=== PATIENT | male | born 1935 | race Caucasian/White ===

== ENCOUNTER 2020-10-28 18:44 | Inpatient (IN) | payer OTHER, MEDICARE ==
--- NOTE | 2020-10-28 19:02 | EDM.PDOC ---
ED HPI GENERAL MEDICAL PROBLEM - General Chief Complaint: Respiratory Problem Stated Complaint: TROUBLE BREATHING Time Seen by Provider: 10/28/20 18:50 - History of Present Illness INITIAL COMMENTS - FREE TEXT/NARRATIVE: Cedrick is an 85-year-old male presenting to the ED for evaluation of dyspnea at rest. Patient reports that he has had a cough over the last several days that is been nonproductive. He has become progressively short of breath over that same period of time. He denies any fever or chills. He states he has been working outside in the cold. He does smoke but denies any history of COPD. Very limited is known about his past medical history but he is presenting with a rapid irregularly irregular heartbeat, respiratory distress with hypoxia with an SPO2 of 80% on room air and respiratory rate of 42. He states that he has been extra careful about avoiding people with COVID-19. He denies any loss of taste or smell. Patient is extremely hard of hearing. He normally receives care from [facility] in [facility]. He does express that he would like to be full code but does not want his life extended on machines. The patient has a past medical history for tobacco abuse smoking 1 to 2 packs a day for 50 years, hypertension, hyperlipidemia, coronary disease status post CT with a history of congestive heart failure, and hypothyroidism. He is currently on furosemide, metoprolol, levothyroxine, lisinopril, hydroxyzine, simvastatin, full-strength aspirin and amlodipine. He reports having an allergy to something he does not remember, however, his dhmtrure-to-lkv says he has no allergies. We reviewed the records from both [facility] and [facility] and do not see any documentation of allergies. - Related Data Allergies Allergy/AdvReac Type Severity Reaction Status Date / Time No Known Allergies Allergy Verified 10/28/20 19:24 Home Meds: Home Meds Aspirin 325 mg PO DAILY 10/28/20 [History] Furosemide 40 mg PO DAILY 10/28/20 [History] Levothyroxine 25 mcg PO ACBREAKFAST 10/28/20 [History] Metoprolol Tartrate 25 mg PO BID 10/28/20 [History] Simvastatin 80 mg PO DAILY 10/28/20 [History] amLODIPine Besylate [Norvasc] 5 mg PO DAILY 10/28/20 [History] hydrOXYzine HCL [Atarax] 25 mg PO QID 10/28/20 [History] lisinopriL [Lisinopril] 40 mg PO DAILY 10/28/20 [History] ED ROS GENERAL - Review of Systems Review Of Systems: See Below Constitutional: Reports: Malaise HEENT: Reports: No Symptoms Respiratory: Reports: Shortness of Breath, Cough. Denies: Sputum Cardiovascular: Reports: Palpitations. Denies: Chest Pain, Blood Pressure Problem Endocrine: Reports: No Symptoms GI/Abdominal: Reports: No Symptoms : Reports: No Symptoms Musculoskeletal: Reports: No Symptoms Skin: Reports: No Symptoms Neurological: Reports: No Symptoms Psychiatric: Reports: No Symptoms Hematologic/Lymphatic: Reports: No Symptoms Immunologic: Reports: No Symptoms ED EXAM, GENERAL - Physical Exam Exam: See Below Exam Limited By: No Limitations General Appearance: Alert, Anxious, Mild Distress Eye Exam: Bilateral Eye: EOMI, PERRL Nose: Normal Inspection, Normal Mucosa Head: Atraumatic, Normocephalic Neck: Normal Inspection, Supple, Non-Tender. No: Carotid Bruit Respiratory/Chest: Respiratory Distress, Decreased Breath Sounds, Wheezing (Inspiratory and expiratory wheezes.), Accessory Muscle Use, Retractions, Prolonged Expiration, Other (Tachypnea) Cardiovascular: No Edema, No Murmur, No Rub, JVD (6 cm at 60 degrees in the bed.), Tachycardia, Irregularly Irregular Peripheral Pulses: 2+: Radial (L), Radial (R), Posterior Tibial (L), Posterior Tibial (R) GI/Abdominal: Normal Bowel Sounds, Soft, Non-Tender, Distended Back Exam: Normal Inspection, Full Range of Motion Extremities: Normal Inspection, Normal Range of Motion, No Pedal Edema Neurological: Alert, Oriented, Normal Cognition, Normal Gait, No Motor/Sensory Deficits Psychiatric: Normal Affect, Normal Mood Skin Exam: Warm, Dry Lymphatic: No Adenopathy #1 Interpretation EKG Date: 10/28/20 Time: 19:10 Rhythm: A-Fib Rate (Beats/Min): 120 (68 - 140 bpm) P-Wave: Absent QRS: LBBB ST-T: Other (Repolarization abnormality due to left bundle branch block.) QT: Prolonged Comparison: NA - No Prior EKG Course - Vital Signs Last Recorded V/S: Last Vital Signs Temp 35.5 C L 10/28/20 18:45 Pulse 108 H 10/28/20 22:22 Resp 34 H 10/28/20 22:22 BP 108/59 L 10/28/20 22:22 Pulse Ox 92 L 10/28/20 22:22 - Orders/Labs/Meds Orders: Active Orders 24 hr Category Date Time Status Blood Pressure Mgt: Sepsis [RC] Q15MX2 Care 10/28/20 20:00 Active EKG Documentation Completion [RC] ASDIRECTED Care 10/28/20 18:52 Active RT Aerosol Therapy [RC] ASDIRECTED Care 10/28/20 19:08 Active RT Aerosol Therapy [RC] ASDIRECTED Care 10/28/20 22:29 Active CULTURE BLOOD [BC] Urgent Lab 10/28/20 19:00 Received CULTURE BLOOD [BC] Urgent Lab 10/28/20 19:10 Received Sodium Chloride 0.9% [Saline Flush] Med 10/28/20 18:51 Active 10 ml FLUSH ASDIRECTED PRN Blood Culture x2 Reflex Set [OM.PC] Urgent Oth 10/28/20 18:55 Ordered Saline Lock Insert [OM.PC] Routine Oth 10/28/20 18:51 Ordered Severe Sepsis Onset Time [OM.PC] Stat Oth 10/28/20 19:59 Ordered EKG 12 Lead [EK] Routine Ther 10/28/20 18:51 Ordered Medication Orders Sodium Chloride (Saline Flush) 10 ml FLUSH ASDIRECTED PRN PRN Reason: Keep Vein Open Last Admin: 10/28/20 23:06 Dose: 10 ml Documented by: Admin: 10/28/20 19:05 Dose: 10 ml Documented by: MISAEL Labs: Laboratory Tests 10/28/20 10/28/20 10/28/20 Range/Units 18:51 18:59 18:59 WBC 11.7 H (4.5-11.0) K/uL RBC 4.68 (4.30-5.90) M/uL Hgb 14.3 (12.0-15.0) g/dL Hct 45.2 (40.0-54.0) % MCV 97 (80-98) fL MCH 31 (27-31) pg MCHC 32 (32-36) % Plt Count 230 (150-400) K/uL Neut % (Auto) 53 (36-66) % Lymph % (Auto) 34 (24-44) % Ellsworth % (Auto) 10 H (2-6) % Eos % (Auto) 3 (2-4) % Baso % (Auto) 0 (0-1) % PT 11.6 (9.5-12.0) sec INR 1.07 (0.80-1.20) Sodium 137 L (140-148) mmol/L Potassium 3.0 L (3.6-5.2) mmol/L Chloride 98 L (100-108) mmol/L Carbon Dioxide 25 (21-32) mmol/L Anion Gap 17.0 H (5.0-14.0) mmol/L BUN 17 (7-18) mg/dL Creatinine 1.1 (0.8-1.3) mg/dL Est Cr Clr Drug Dosing 45.67 mL/min Estimated GFR (MDRD) > 60 (>60) Glucose 201 H (74-106) mg/dL Lactic Acid (0.4-2.0) mmol/L Calcium 9.0 (8.5-10.1) mg/dL Total Bilirubin 0.9 (0.2-1.0) mg/dL AST 16 (15-37) U/L ALT 20 (12-78) U/L Alkaline Phosphatase 107 (46-116) U/L Troponin I < 0.017 (0.000-0.056) ng/mL C-Reactive Protein 2.08 H (0.0-0.3) mg/dL NT-Pro-B Natriuret Pep 63578 H (5-450) pg/mL Total Protein 7.9 (6.4-8.2) g/dL Albumin 3.4 (3.4-5.0) g/dL Globulin 4.5 H (2.3-3.5) g/dL Albumin/Globulin Ratio 0.8 L (1.2-2.2) Urine Color (YELLOW) Urine Appearance (CLEAR) Urine pH (5.0-8.0) Ur Specific Cook Sta (1.008-1.030) Urine Protein (NEGATIVE) mg/dL Urine Glucose (UA) (NEGATIVE) mg/dL Urine Ketones (NEGATIVE) mg/dL Urine Occult Blood (NEGATIVE) Urine Nitrite (NEGATIVE) Urine Bilirubin (NEGATIVE) Urine Urobilinogen (0.2-1.0) EU/dL Ur Leukocyte Esterase (NEGATIVE) Urine RBC (0-5) Urine WBC (0-5) Ur Epithelial Cells Amorphous Sediment Urine Bacteria Urine Mucus Influenza Type A RNA (NEGATIVE) Influenza Type B RNA (NEGATIVE) RSV Rapid (NEGATIVE) SARS-CoV-2 RNA (EDISON) (NEGATIVE) 10/28/20 10/28/20 10/28/20 Range/Units 18:59 19:41 20:12 WBC (4.5-11.0) K/uL RBC (4.30-5.90) M/uL Hgb (12.0-15.0) g/dL Hct (40.0-54.0) % MCV (80-98) fL MCH (27-31) pg MCHC (32-36) % Plt Count (150-400) K/uL Neut % (Auto) (36-66) % Lymph % (Auto) (24-44) % Ellsworth % (Auto) (2-6) % Eos % (Auto) (2-4) % Baso % (Auto) (0-1) % PT (9.5-12.0) sec INR (0.80-1.20) Sodium (140-148) mmol/L Potassium (3.6-5.2) mmol/L Chloride (100-108) mmol/L Carbon Dioxide (21-32) mmol/L Anion Gap (5.0-14.0) mmol/L BUN (7-18) mg/dL Creatinine (0.8-1.3) mg/dL Est Cr Clr Drug Dosing mL/min Estimated GFR (MDRD) (>60) Glucose (74-106) mg/dL Lactic Acid 4.4 H (0.4-2.0) mmol/L Calcium (8.5-10.1) mg/dL Total Bilirubin (0.2-1.0) mg/dL AST (15-37) U/L ALT (12-78) U/L Alkaline Phosphatase (46-116) U/L Troponin I (0.000-0.056) ng/mL C-Reactive Protein (0.0-0.3) mg/dL NT-Pro-B Natriuret Pep (5-450) pg/mL Total Protein (6.4-8.2) g/dL Albumin (3.4-5.0) g/dL Globulin (2.3-3.5) g/dL Albumin/Globulin Ratio (1.2-2.2) Urine Color Yellow (YELLOW) Urine Appearance Clear (CLEAR) Urine pH 6.0 (5.0-8.0) Ur Specific Cook Sta 1.025 (1.008-1.030) Urine Protein >=300 H (NEGATIVE) mg/dL Urine Glucose (UA) Negative (NEGATIVE) mg/dL Urine Ketones Negative (NEGATIVE) mg/dL Urine Occult Blood Small H (NEGATIVE) Urine Nitrite Negative (NEGATIVE) Urine Bilirubin Negative (NEGATIVE) Urine Urobilinogen 2.0 H (0.2-1.0) EU/dL Ur Leukocyte Esterase Negative (NEGATIVE) Urine RBC 5-10 H (0-5) Urine WBC 0-5 (0-5) Ur Epithelial Cells Not seen Amorphous Sediment Not seen Urine Bacteria Not seen Urine Mucus Few Influenza Type A RNA Negative (NEGATIVE) Influenza Type B RNA Negative (NEGATIVE) RSV Rapid Negative (NEGATIVE) SARS-CoV-2 RNA (EDISON) Negative (NEGATIVE) 10/28/20 10/28/20 Range/Units 21:51 21:51 WBC (4.5-11.0) K/uL RBC (4.30-5.90) M/uL Hgb (12.0-15.0) g/dL Hct (40.0-54.0) % MCV (80-98) fL MCH (27-31) pg MCHC (32-36) % Plt Count (150-400) K/uL Neut % (Auto) (36-66) % Lymph % (Auto) (24-44) % Ellsworth % (Auto) (2-6) % Eos % (Auto) (2-4) % Baso % (Auto) (0-1) % PT (9.5-12.0) sec INR (0.80-1.20) Sodium (140-148) mmol/L Potassium (3.6-5.2) mmol/L Chloride (100-108) mmol/L Carbon Dioxide (21-32) mmol/L Anion Gap (5.0-14.0) mmol/L BUN (7-18) mg/dL Creatinine (0.8-1.3) mg/dL Est Cr Clr Drug Dosing mL/min Estimated GFR (MDRD) (>60) Glucose (74-106) mg/dL Lactic Acid 1.4 (0.4-2.0) mmol/L Calcium (8.5-10.1) mg/dL Total Bilirubin (0.2-1.0) mg/dL AST (15-37) U/L ALT (12-78) U/L Alkaline Phosphatase (46-116) U/L Troponin I 0.024 (0.000-0.056) ng/mL C-Reactive Protein (0.0-0.3) mg/dL NT-Pro-B Natriuret Pep (5-450) pg/mL Total Protein (6.4-8.2) g/dL Albumin (3.4-5.0) g/dL Globulin (2.3-3.5) g/dL Albumin/Globulin Ratio (1.2-2.2) Urine Color (YELLOW) Urine Appearance (CLEAR) Urine pH (5.0-8.0) Ur Specific Cook Sta (1.008-1.030) Urine Protein (NEGATIVE) mg/dL Urine Glucose (UA) (NEGATIVE) mg/dL Urine Ketones (NEGATIVE) mg/dL Urine Occult Blood (NEGATIVE) Urine Nitrite (NEGATIVE) Urine Bilirubin (NEGATIVE) Urine Urobilinogen (0.2-1.0) EU/dL Ur Leukocyte Esterase (NEGATIVE) Urine RBC (0-5) Urine WBC (0-5) Ur Epithelial Cells Amorphous Sediment Urine Bacteria Urine Mucus Influenza Type A RNA (NEGATIVE) Influenza Type B RNA (NEGATIVE) RSV Rapid (NEGATIVE) SARS-CoV-2 RNA (EDISON) (NEGATIVE) Meds: Medications Generic Name Dose Route Start Last Admin Trade Name Freq PRN Reason Stop Dose Admin Sodium Chloride 10 ml 10/28/20 18:51 10/28/20 23:06 Saline Flush FLUSH 10 ml ASDIRECTED PRN Administration Keep Vein Open Discontinued Medications Generic Name Dose Route Start Last Admin Trade Name Freq PRN Reason Stop Dose Admin Albuterol/Ipratropium 3 ml 10/28/20 19:08 10/28/20 19:25 Duoneb 3.0-0.5 Mg/3 Ml NEB 10/28/20 19:09 3 ml ONETIME ONE Administration Albuterol/Ipratropium 3 ml 10/28/20 22:29 10/28/20 22:32 Duoneb 3.0-0.5 Mg/3 Ml NEB 10/28/20 22:30 3 ml ONETIME ONE Administration Ceftriaxone Sodium 1 gm/ 50 mls @ 100 mls/hr 10/28/20 19:29 10/28/20 20:24 Sodium Chloride IV 10/28/20 19:58 100 mls/hr ONETIME ONE Administration Sodium Chloride 1,000 mls @ 1,000 mls/hr 10/28/20 19:59 10/28/20 20:18 Normal Saline IV 10/28/20 20:58 1,000 mls/hr BOLUS ONE Administration Protocol Vancomycin HCl 1 gm/ Sodium 250 mls @ 167 mls/hr 10/28/20 19:59 10/28/20 20:52 Chloride IV 10/28/20 21:28 167 mls/hr STAT ONE Administration Methylprednisolone Sodium Succinate 125 mg 10/28/20 22:55 10/28/20 23:06 Solu-Medrol IVPUSH 10/28/20 22:56 125 mg ONETIME ONE Administration Potassium Chloride 40 meq 10/28/20 19:55 10/28/20 20:17 Klor-Con M20 PO 10/28/20 19:56 40 meq ONETIME ONE Administration - Radiology Interpretation Free Text/Narrative:: Portable 1 view chest x-ray was performed showing hyperinflation of the lungs with some pulmonary fibrosis throughout and flattening of the diaphragms. There is a large increased density in the right base worrisome for a pleural effusion versus infiltrate. We will get a right lateral decubitus view to try to determine if this is fluid versus intrapulmonary. Portable 1 view chest x-ray right lateral decubitus view shows minimal layering of fluid favoring more likely this being an infiltrate in the right base versus a pleural effusion. - Re-Assessments/Exams Free Text/Narrative Re-Assessment/Exam: 10/28/20 21:10 I discussed the case with Dr. Velasquez from the [facility] in [place] who is the medical logistics specialist of the day. We reviewed the patient's presenting complaint, exam, history, and labs. Dr. Velasquez was concerned that this may be an unstable coronary issue and wanted a repeat troponin III hours after the patient had presented which would be at 2200 hrs. If the patient remained stable during this time and has improvement in both his lactate and remained stable with his troponin, Dr. Velasquez believes that he could be transferred to the [facility] for further care. If the troponin remains elevated, he recommended transferring the patient to a facility where they have cardiology available if an intervention needs to be performed since the patient has a significant history for coronary artery disease. We will repeat the troponin and update Dr. Velasquez at that time. 10/28/20 22:31 the repeat lactate has dropped down to 1.4 and the repeat troponin is still negative at 0.024. I did discuss the case with Dr. Velasquez at the [facility] in his lungs the patient remained stable he believes that they can transfer the patient there, however, after getting off the phone with Dr. Velasquez the patient became more tachypneic, had some hypoxia and tachycardia and was experiencing more difficulty breathing. We did repeat the DuoNeb. 10/28/20 22:456 I did discuss the case again with Dr. Velasquez at the [facility] who agrees that the patient should probably stay here should he require ICU management. The patient would like to stay here as well. We will admit him to the ICU on medical status. At this time he does not require any assisted ventilation BiPAP or other means to maintain oxygenation other than repeated DuoNebs and close monitoring. He will likely need diuresis in the morning. I discussed the case with Dr. Hinton who will come in to admit the patient. The patient will be admitted to the ICU as an overflow. Departure - Departure Time of Disposition: 23:17 Disposition: Admitted As Inpatient 66 Condition: Fair Clinical Impression: Atrial fibrillation with rapid ventricular response, Hypoxia, Tobacco use disorder, continuous, Hypokalemia Community acquired pneumonia Qualifiers: Laterality: right Lung location: lower lobe of lung Qualified Code(s): J18.9 - Pneumonia, unspecified organism Congestive heart failure (CHF) Qualifiers: Heart failure type: unspecified Heart failure chronicity: acute on chronic Qualified Code(s): I50.9 - Heart failure, unspecified Sepsis Qualifiers: Sepsis type: sepsis due to unspecified organism Sepsis acute organ dysfunction status: unspecified Qualified Code(s): A41.9 - Sepsis, unspecified organism COPD (chronic obstructive pulmonary disease) Qualifiers: COPD type: COPD with acute exacerbation Qualified Code(s): J44.1 - Chronic obstructive pulmonary disease with (acute) exacerbation - Discharge Information Referrals: PCP,None [Primary Care Provider] - Forms: ED Department Discharge Sepsis Event Note (ED) - Evaluation Sepsis Screening Result: Possible Sepsis Risk Current Stage of Sepsis: Sepsis Possible Source of Sepsis: Pulmonary - Focused Exam Sepsis Event Note Statement: Focused Sepsis Exam Completed Vital Signs: Vital Signs Temp Pulse Resp BP Pulse Ox 10/28/20 22:22 108 H 34 H 108/59 L 92 L 10/28/20 21:20 84 29 H 129/77 94 L 10/28/20 20:50 72 21 H 116/63 92 L 10/28/20 20:20 74 24 H 133/67 91 L 10/28/20 19:50 80 23 H 105/66 10/28/20 19:28 69 16 128/73 97 10/28/20 18:45 35.5 C L 135 H 35 H 151/100 H 81 L Respiratory Effort Without Exertion: Abdominal Breathing, Labored, Retracting, Use Of Accessory Muscles Heart Sounds: Irregular Capillary Refill, Detail: Less than/Equal to (</=) 2 Seconds Pulse Description: 2+ Normal Peripheral Pulse Location: Posterior Tibial Skin Exam (Focused Sepsis): Normal Turgor Date Exam was Performed: 10/28/20 Time Exam was Performed: 19:35 - Bedside Monitoring Bedside Ultrasound Performed: No Fluid Bolus Goal: 15 mL/kg due to congestive heart failure [place] [address]. Antibiotics were initiated with ceftriaxone 1 g and vancomycin 1 g IV. Blood cultures have been obtained. Date Bedside Monitoring was Performed: 10/28/20 Time Bedside Monitoring was Performed: 23:16 - Problem List & Annotations (1) Community acquired pneumonia SNOMED Code(s): 358242990 Code(s): J18.9 - PNEUMONIA, UNSPECIFIED ORGANISM Status: Acute Priority: High Current Visit: Yes Qualifiers: Laterality: right Lung location: lower lobe of lung Qualified Code(s): J18.9 - Pneumonia, unspecified organism (2) Atrial fibrillation with rapid ventricular response SNOMED Code(s): 005481258731849 Code(s): I48.91 - UNSPECIFIED ATRIAL FIBRILLATION Status: Acute Priority: High Current Visit: Yes (3) Hypoxia SNOMED Code(s): 025901479 Code(s): R09.02 - HYPOXEMIA Status: Acute Priority: High Current Visit: Yes (4) Tobacco use disorder, continuous SNOMED Code(s): 717969454 Code(s): F17.209 - NICOTINE DEPENDENCE, UNSP, W UNSP NICOTINE-INDUCED DI SORDERS Status: Chronic Priority: Medium Current Visit: Yes (5) Hypokalemia SNOMED Code(s): 59636777 Code(s): E87.6 - HYPOKALEMIA Status: Acute Priority: High Current Visit: Yes (6) Congestive heart failure (CHF) SNOMED Code(s): 90976876 Code(s): I50.9 - HEART FAILURE, UNSPECIFIED Status: Acute Priority: High Current Visit: Yes Qualifiers: Heart failure type: unspecified Heart failure chronicity: acute on chronic Qualified Code(s): I50.9 - Heart failure, unspecified (7) Sepsis SNOMED Code(s): 62773924 Code(s): A41.9 - SEPSIS, UNSPECIFIED ORGANISM Status: Acute Priority: High Current Visit: Yes Qualifiers: Sepsis type: sepsis due to unspecified organism Sepsis acute organ dysfunction status: unspecified Qualified Code(s): A41.9 - Sepsis, unspecified organism (8) COPD (chronic obstructive pulmonary disease) SNOMED Code(s): 92347995 Code(s): J44.9 - CHRONIC OBSTRUCTIVE PULMONARY DISEASE, UNSPECIFIED Status: Acute Priority: High Current Visit: Yes Qualifiers: COPD type: COPD with acute exacerbation Qualified Code(s): J44.1 - Chronic obstructive pulmonary disease with (acute) exacerbation - Problem List Review Problem List Initiated/Reviewed/Updated: Yes - My Orders Last 24 Hours: My Active Orders 10/28/20 18:51 Sodium Chloride 0.9% [Saline Flush] 10 ml FLUSH ASDIRECTED PRN Saline Lock Insert [OM.PC] Routine EKG 12 Lead [EK] Routine 10/28/20 18:52 EKG Documentation Completion [RC] ASDIRECTED 10/28/20 18:55 Blood Culture x2 Reflex Set [OM.PC] Urgent 10/28/20 19:00 CULTURE BLOOD [BC] Urgent 10/28/20 19:08 RT Aerosol Therapy [RC] ASDIRECTED 10/28/20 19:10 CULTURE BLOOD [BC] Urgent 10/28/20 19:59 Severe Sepsis Onset Time [OM.PC] Stat 10/28/20 20:00 Blood Pressure Mgt: Sepsis [RC] Q15MX2 10/28/20 22:29 RT Aerosol Therapy [RC] ASDIRECTED - Assessment/Plan Last 24 Hours: My Active Orders 10/28/20 18:51 Sodium Chloride 0.9% [Saline Flush] 10 ml FLUSH ASDIRECTED PRN Saline Lock Insert [OM.PC] Routine EKG 12 Lead [EK] Routine 10/28/20 18:52 EKG Documentation Completion [RC] ASDIRECTED 10/28/20 18:55 Blood Culture x2 Reflex Set [OM.PC] Urgent 10/28/20 19:00 CULTURE BLOOD [BC] Urgent 10/28/20 19:08 RT Aerosol Therapy [RC] ASDIRECTED 10/28/20 19:10 CULTURE BLOOD [BC] Urgent 10/28/20 19:59 Severe Sepsis Onset Time [OM.PC] Stat 10/28/20 20:00 Blood Pressure Mgt: Sepsis [RC] Q15MX2 10/28/20 22:29 RT Aerosol Therapy [RC] ASDIRECTED
[2020-10-28] MEDS: Sodium Chloride 0.9% 10 ML Syringe FLUSH PRN ×2 (19:05→23:06)
[2020-10-28] MEDS ORDERED: Albuterol/Ipratropium 3.0-0.5 MG/3 ML Neb Soln NEB ONE ×2 (19:08→22:29)
[2020-10-28] MEDS ORDERED: cefTRIAXone 1 GM in Sodium Chloride 0.9% 50 ML IV ONE (19:29)
--- NOTE | 2020-10-28 19:47 | CRLCR ---
Indication: Right pleural effusion Technique: Examination consists an AP upright chest radiograph as well as a right lateral decubitus view of the chest Comparison: None Findings: Heart enlarged. Patchy multifocal airspace process bilaterally could represent edema or a diffuse inflammatory process amongst other possibilities. There is a very small left effusion. There is a small to moderate right effusion. On right lateral decubitus imaging, there is objective separation of the parietal from visceral pleura suggesting that the right effusion is mobile. No acute osseous finding Impression: 1. Enlarged heart. 2. Patchy multifocal airspace process bilaterally. This is overall moderate. 3. Very small left effusion. 4. Small to moderate right effusion that is shown to be mobile on decubitus positioning Dictated by Thierry Arellano MD @ Oct 28 2020 7:42PM Signed by Dr. Thierry Arellano @ Oct 28 2020 7:45PM
[2020-10-28] MEDS ORDERED: Potassium Chloride 20 MEQ Tab.ER PO ONE (19:55)
[2020-10-28] MEDS ORDERED: Sodium Chloride 0.9% 1,000 ML IV ONE (19:59)
[2020-10-28 20:27] LABS: CORONAVIRUS COVID-19 NAA NEGATIVE (NEGATIVE)
[2020-10-28] MEDS ORDERED: methylPREDNISolone Sodium Succinate 125 MG/2 ML SDV IVPUSH ONE (22:55)
[2020-10-28] MEDS ORDERED: Ondansetron 4 MG Tab.DIS PO PRN (23:36)
--- NOTE | 2020-10-29 00:20 | PCM.HP.2 ---
H&P History of Present Illness - General Date of Service: 10/28/20 Admit Problem/Dx: Admission Diagnosis/Problem Admission Diagnosis/Problem Sepsis Source of Information: Patient History Limitations: Reports: No Limitations - History of Present Illness Initial Comments - Free Text/Narative: Patient is an 85yo male smoker with PMH of HTN, who is here for SOB, orthopnea, and leg swelling. Patient says for the last 2-3 days he has been having more difficulty sleeping and has been coughing at night. Sometimes he was able to lay down, but tonight when he tried to lay down to sleep he could not breathe. He says his legs have been more swollen than normal recently. He does have a distant history of NV, but denies any other known heart issues. He says he does take medication for blood pressure and a statin. He says he is trying to quit smoking but has had 4 cigarettes today and would like nicotine replacement while in the hospital. He says he is not on any COPD medications at this time, but has been having difficulty coughing up a lot of mucus over the last several days. He denies any CP, or palpitations Onset of Symptoms: Reports: Gradual Symptom Onset Date: 10/26/20 Location: Reports: Chest Improves with: Reports: Rest Worsens with: Reports: Other (lying down), Movement Associated Symptoms: Reports: No Other Symptoms - Related Data Allergies/Adverse Reactions: Allergies Allergy/AdvReac Type Severity Reaction Status Date / Time No Known Allergies Allergy Verified 10/28/20 19:24 Home Medications: Home Meds Aspirin 325 mg PO DAILY 10/28/20 [History] Furosemide 40 mg PO DAILY 10/28/20 [History] Levothyroxine 25 mcg PO ACBREAKFAST 10/28/20 [History] Metoprolol Tartrate 25 mg PO BID 10/28/20 [History] Simvastatin 80 mg PO DAILY 10/28/20 [History] amLODIPine Besylate [Norvasc] 5 mg PO DAILY 10/28/20 [History] hydrOXYzine HCL [Atarax] 25 mg PO QID 10/28/20 [History] lisinopriL [Lisinopril] 40 mg PO DAILY 10/28/20 [History] Past Medical History HEENT History: Reports: Hard of Hearing, Impaired Vision Cardiovascular History: Reports: Heart Failure, High Cholesterol, Hypertension, NV Musculoskeletal History: Reports: Fracture Other Musculoskeletal History: knee Endocrine/Metabolic History: Reports: Hypothyroidism Oncologic (Cancer) History: Reports: Other (See Below) Other Oncologic History: skin Dermatologic History: Reports: Other (See Below) 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 - Past Surgical History HEENT Surgical History: Reports: Cataract Surgery Oncologic Surgical History: Reports: None Social & Family History - Tobacco Use Tobacco Use Status *Q: Light Tobacco User Years of Tobacco use: 70 Packs/Tins Daily: 0.5 Tobacco Use Comment: reports "trying to quit" - Caffeine Use Caffeine Use: Reports: Coffee - Alcohol Use Days Per Week of Alcohol Use: 7 Number of Drinks Per Day: 1 Total Drinks Per Week: 7 - Recreational Drug Use Recreational Drug Use: No H&P Review of Systems - Review of Systems: Review Of Systems: See Below General: Denies: Fever, Chills, Malaise HEENT: Reports: No Symptoms Pulmonary: Reports: Shortness of Breath, Wheezing, Cough, Sputum Cardiovascular: Reports: Edema. Denies: Chest Pain, Palpitations Gastrointestinal: Reports: No Symptoms Genitourinary: Reports: No Symptoms Musculoskeletal: Reports: No Symptoms Skin: Reports: No Symptoms Psychiatric: Reports: No Symptoms Neurological: Reports: No Symptoms Hematologic/Lymphatic: Reports: No Symptoms Immunologic: Reports: No Symptoms Exam - Exam Exam: See Below - Vital Signs Vital Signs: Last Vital Signs Temp 35.5 C L 10/28/20 18:45 Pulse 108 H 10/28/20 22:22 Resp 34 H 10/28/20 22:22 BP 108/59 L 10/28/20 22:22 Pulse Ox 92 L 10/28/20 22:22 Weight: 65.771 kg - Exam Quality Assessment: Supplemental Oxygen General: Alert, Oriented, 4 HEENT: PERRLA, Hearing Intact, Mucosa Moist & [place], Nares Patent, Normal Nasal Septum, Posterior Pharynx Clear, Conjunctiva Clear, EOMI, EACs Clear, TMs Clear Neck: Supple, Trachea Midline, 2 Lungs: Decreased Breath Sounds, Crackles, Wheezing Cardiovascular: Normal S1, Normal S2, Irregular Rhythm GI/Abdominal Exam: Normal Bowel Sounds, Soft, Non-Tender, No Organomegaly, No Distention, No Abnormal Bruit, No Mass, Pelvis Stable (Male) Exam: Deferred Rectal (Males) Exam: Deferred Back Exam: Normal Inspection, Full Range of Motion, NT Extremities: Pedal Edema Skin: Warm, Dry, Intact Neurological: Cranial Nerves Intact, Reflexes Equal Bilateral Neuro Extensive - Mental Status: Alert, Oriented x3, Normal Mood/Affect, Normal Cognition Neuro Extensive - Motor, Sensory, Reflexes: CN II-XII Intact Psychiatric: Alert, Normal Affect, Normal Mood - Patient Data Lab Results Last 24 hrs: Laboratory Results - last 24 hr 10/28/20 10/28/20 10/28/20 Range/Units 18:51 18:59 18:59 WBC 11.7 H (4.5-11.0) K/uL RBC 4.68 (4.30-5.90) M/uL Hgb 14.3 (12.0-15.0) g/dL Hct 45.2 (40.0-54.0) % MCV 97 (80-98) fL MCH 31 (27-31) pg MCHC 32 (32-36) % Plt Count 230 (150-400) K/uL Neut % (Auto) 53 (36-66) % Lymph % (Auto) 34 (24-44) % [place] % (Auto) 10 H (2-6) % Eos % (Auto) 3 (2-4) % Baso % (Auto) 0 (0-1) % PT 11.6 (9.5-12.0) sec INR 1.07 (0.80-1.20) Sodium 137 L (140-148) mmol/L Potassium 3.0 L (3.6-5.2) mmol/L Chloride 98 L (100-108) mmol/L Carbon Dioxide 25 (21-32) mmol/L Anion Gap 17.0 H (5.0-14.0) mmol/L BUN 17 (7-18) mg/dL Creatinine 1.1 (0.8-1.3) mg/dL Est Cr Clr Drug Dosing 45.67 mL/min Estimated GFR (MDRD) > 60 (>60) Glucose 201 H (74-106) mg/dL Lactic Acid (0.4-2.0) mmol/L Calcium 9.0 (8.5-10.1) mg/dL Total Bilirubin 0.9 (0.2-1.0) mg/dL AST 16 (15-37) U/L ALT 20 (12-78) U/L Alkaline Phosphatase 107 (46-116) U/L Troponin I < 0.017 (0.000-0.056) ng/mL C-Reactive Protein 2.08 H (0.0-0.3) mg/dL NT-Pro-B Natriuret Pep 11921 H (5-450) pg/mL Total Protein 7.9 (6.4-8.2) g/dL Albumin 3.4 (3.4-5.0) g/dL Globulin 4.5 H (2.3-3.5) g/dL Albumin/Globulin Ratio 0.8 L (1.2-2.2) Urine Color (YELLOW) Urine Appearance (CLEAR) Urine pH (5.0-8.0) Ur Specific [place] (1.008-1.030) Urine Protein (NEGATIVE) mg/dL Urine Glucose (UA) (NEGATIVE) mg/dL Urine Ketones (NEGATIVE) mg/dL Urine Occult Blood (NEGATIVE) Urine Nitrite (NEGATIVE) Urine Bilirubin (NEGATIVE) Urine Urobilinogen (0.2-1.0) EU/dL Ur Leukocyte Esterase (NEGATIVE) Urine RBC (0-5) Urine WBC (0-5) Ur Epithelial Cells Amorphous Sediment Urine Bacteria Urine Mucus Influenza Type A RNA (NEGATIVE) Influenza Type B RNA (NEGATIVE) RSV Rapid (NEGATIVE) SARS-CoV-2 RNA ([place]) (NEGATIVE) 10/28/20 10/28/20 10/28/20 Range/Units 18:59 19:41 20:12 WBC (4.5-11.0) K/uL RBC (4.30-5.90) M/uL Hgb (12.0-15.0) g/dL Hct (40.0-54.0) % MCV (80-98) fL MCH (27-31) pg MCHC (32-36) % Plt Count (150-400) K/uL Neut % (Auto) (36-66) % Lymph % (Auto) (24-44) % [place] % (Auto) (2-6) % Eos % (Auto) (2-4) % Baso % (Auto) (0-1) % PT (9.5-12.0) sec INR (0.80-1.20) Sodium (140-148) mmol/L Potassium (3.6-5.2) mmol/L Chloride (100-108) mmol/L Carbon Dioxide (21-32) mmol/L Anion Gap (5.0-14.0) mmol/L BUN (7-18) mg/dL Creatinine (0.8-1.3) mg/dL Est Cr Clr Drug Dosing mL/min Estimated GFR (MDRD) (>60) Glucose (74-106) mg/dL Lactic Acid 4.4 H (0.4-2.0) mmol/L Calcium (8.5-10.1) mg/dL Total Bilirubin (0.2-1.0) mg/dL AST (15-37) U/L ALT (12-78) U/L Alkaline Phosphatase (46-116) U/L Troponin I (0.000-0.056) ng/mL C-Reactive Protein (0.0-0.3) mg/dL NT-Pro-B Natriuret Pep (5-450) pg/mL Total Protein (6.4-8.2) g/dL Albumin (3.4-5.0) g/dL Globulin (2.3-3.5) g/dL Albumin/Globulin Ratio (1.2-2.2) Urine Color Yellow (YELLOW) Urine Appearance Clear (CLEAR) Urine pH 6.0 (5.0-8.0) Ur Specific [place] 1.025 (1.008-1.030) Urine Protein >=300 H (NEGATIVE) mg/dL Urine Glucose (UA) Negative (NEGATIVE) mg/dL Urine Ketones Negative (NEGATIVE) mg/dL Urine Occult Blood Small H (NEGATIVE) Urine Nitrite Negative (NEGATIVE) Urine Bilirubin Negative (NEGATIVE) Urine Urobilinogen 2.0 H (0.2-1.0) EU/dL Ur Leukocyte Esterase Negative (NEGATIVE) Urine RBC 5-10 H (0-5) Urine WBC 0-5 (0-5) Ur Epithelial Cells Not seen Amorphous Sediment Not seen Urine Bacteria Not seen Urine Mucus Few Influenza Type A RNA Negative (NEGATIVE) Influenza Type B RNA Negative (NEGATIVE) RSV Rapid Negative (NEGATIVE) SARS-CoV-2 RNA ([place]) Negative (NEGATIVE) 10/28/20 10/28/20 Range/Units 21:51 21:51 WBC (4.5-11.0) K/uL RBC (4.30-5.90) M/uL Hgb (12.0-15.0) g/dL Hct (40.0-54.0) % MCV (80-98) fL MCH (27-31) pg MCHC (32-36) % Plt Count (150-400) K/uL Neut % (Auto) (36-66) % Lymph % (Auto) (24-44) % [place] % (Auto) (2-6) % Eos % (Auto) (2-4) % Baso % (Auto) (0-1) % PT (9.5-12.0) sec INR (0.80-1.20) Sodium (140-148) mmol/L Potassium (3.6-5.2) mmol/L Chloride (100-108) mmol/L Carbon Dioxide (21-32) mmol/L Anion Gap (5.0-14.0) mmol/L BUN (7-18) mg/dL Creatinine (0.8-1.3) mg/dL Est Cr Clr Drug Dosing mL/min Estimated GFR (MDRD) (>60) Glucose (74-106) mg/dL Lactic Acid 1.4 (0.4-2.0) mmol/L Calcium (8.5-10.1) mg/dL Total Bilirubin (0.2-1.0) mg/dL AST (15-37) U/L ALT (12-78) U/L Alkaline Phosphatase (46-116) U/L Troponin I 0.024 (0.000-0.056) ng/mL C-Reactive Protein (0.0-0.3) mg/dL NT-Pro-B Natriuret Pep (5-450) pg/mL Total Protein (6.4-8.2) g/dL Albumin (3.4-5.0) g/dL Globulin (2.3-3.5) g/dL Albumin/Globulin Ratio (1.2-2.2) Urine Color (YELLOW) Urine Appearance (CLEAR) Urine pH (5.0-8.0) Ur Specific [place] (1.008-1.030) Urine Protein (NEGATIVE) mg/dL Urine Glucose (UA) (NEGATIVE) mg/dL Urine Ketones (NEGATIVE) mg/dL Urine Occult Blood (NEGATIVE) Urine Nitrite (NEGATIVE) Urine Bilirubin (NEGATIVE) Urine Urobilinogen (0.2-1.0) EU/dL Ur Leukocyte Esterase (NEGATIVE) Urine RBC (0-5) Urine WBC (0-5) Ur Epithelial Cells Amorphous Sediment Urine Bacteria Urine Mucus Influenza Type A RNA (NEGATIVE) Influenza Type B RNA (NEGATIVE) RSV Rapid (NEGATIVE) SARS-CoV-2 RNA ([place]) (NEGATIVE) Result Diagrams: 10/28/20 18:51 10/28/20 18:59 Sepsis Event Note - Evaluation Sepsis Screening Result: Possible Sepsis Risk - Focused Exam Vital Signs: Vital Signs Temp Pulse Resp BP Pulse Ox 10/28/20 22:22 108 H 34 H 108/59 L 92 L 10/28/20 21:20 84 29 H 129/77 94 L 10/28/20 20:50 72 21 H 116/63 92 L 10/28/20 20:20 74 24 H 133/67 91 L 10/28/20 19:50 80 23 H 105/66 10/28/20 19:28 69 16 128/73 97 10/28/20 18:45 35.5 C L 135 H 35 H 151/100 H 81 L - Problem List (1) Sepsis SNOMED Code(s): 18645174 ICD Code: A41.9 - SEPSIS, UNSPECIFIED ORGANISM Status: Acute Priority: High Current Visit: Yes Onset Date: Unknown Problem Details: Patient given vancomycin and ceftriaxone in the ED. Source is likely CAP which is likely 2/2 to COPD with exacerbation and CHF with exacerbation. Patient given fluid bolus in ED which improved lactate. Will repeat labs in AM. Will hold furosemide at this time due to tenuous blood pressure and only mild fluid overloading. If patient's BP stabilizes then B-shasha and diuresis may be an option, but at this time I feel that patient is not stable from a BP standpoint and also has only mild elevations of his heart rate. Both of these being mild does not at this time warrant the risk of dropping the patient's blood pressure. Qualifiers: Sepsis type: sepsis due to unspecified organism Sepsis acute organ dysfunction status: without acute organ dysfunction Qualified Code(s): A41.9 - Sepsis, unspecified organism (2) Community acquired pneumonia SNOMED Code(s): 894186308 ICD Code: J18.9 - PNEUMONIA, UNSPECIFIED ORGANISM Status: Acute Priority: High Current Visit: Yes Onset Date: ~10/26/20 Problem Details: Patient started on ceftriaxone and vancomycin for CAP and sepsis 2/2 to CHF and COPD. Patient will also be given nebulizers for treatment of COPD and wheezing. Patient's fluid status is tenuous and at this time I feel his fluid overloading is minimal compared to the risk of becoming hypotensive due to sepsis, so will hold diuretics at this time Qualifiers: Laterality: right Lung location: lower lobe of lung Qualified Code(s): J18.9 - Pneumonia, unspecified organism (3) Atrial fibrillation with rapid ventricular response SNOMED Code(s): 509714153967326 ICD Code: I48.91 - UNSPECIFIED ATRIAL FIBRILLATION Status: Acute Priority: High Current Visit: Yes Onset Date: Unknown Problem Details: At this time the patient's RVR has stabilized with a rate around 90-110. Given the patient's sepsis status b-shasha will be held at this time unless his BP is able to rebound at this time. If patient's blood pressure is more stable he can be restarted on his normal metoprolol and should follow up with cardiology as an outpatient as this is a new diagnosis of Afib for him. (4) COPD (chronic obstructive pulmonary disease) SNOMED Code(s): 43946605 ICD Code: J44.9 - CHRONIC OBSTRUCTIVE PULMONARY DISEASE, UNSPECIFIED Status: Acute Priority: High Current Visit: Yes Onset Date: ~10/28/20 Problem Details: Will give patient ceftriaxone and vancomycin for likely pneumonia due to COPD exacerbation. Patient will have duonebs and albuterol available for q2hr to help with wheezing and expectoration of mucus. Qualifiers: COPD type: COPD with acute exacerbation Qualified Code(s): J44.1 - Chronic obstructive pulmonary disease with (acute) exacerbation (5) Congestive heart failure (CHF) SNOMED Code(s): 05081085 ICD Code: I50.9 - HEART FAILURE, UNSPECIFIED Status: Acute Priority: High Current Visit: Yes Onset Date: Unknown Problem Details: Likely a contributor to his CAP, will hold diuretic at this time due to sepsis and hypotension and elevated lactate. Qualifiers: Heart failure type: unspecified Heart failure chronicity: acute on chronic Qualified Code(s): I50.9 - Heart failure, unspecified (6) Hypokalemia SNOMED Code(s): 70452897 ICD Code: E87.6 - HYPOKALEMIA Status: Acute Priority: High Current Visit: Yes Onset Date: Unknown Problem Details: Patient given KCl in the ED (7) Hypoxia SNOMED Code(s): 125614358 ICD Code: R09.02 - HYPOXEMIA Status: Acute Priority: High Current Visit: Yes Onset Date: Unknown Problem Details: Patient is on O2 by nasal cannula, but could at any point require bipap or intubation due to respiratory compromise. (8) Tobacco use disorder, continuous SNOMED Code(s): 387100769 ICD Code: F17.209 - NICOTINE DEPENDENCE, UNSP, W UNSP NICOTINE-INDUCED DISORDERS Status: Chronic Priority: Medium Current Visit: Yes Onset Date: Unknown Problem Details: Will give patient nicotine patches Problem List Initiated/Reviewed/Updated: Yes Orders Last 24hrs: Active Orders 24 hr Category Date Time Status Patient Status [ADT] Routine ADT 10/28/20 23:37 Ordered Blood Pressure Mgt: Sepsis [RC] [id number] Care 10/28/20 20:00 Active Cardiac Monitoring [RC] CONTINUOUS Care 10/28/20 23:41 Ordered EKG Documentation Completion [RC] ASDIRECTED Care 10/28/20 18:52 Active Oxygen Therapy [RC] PRN Care 10/28/20 23:37 Ordered Pulse Oximetry [RC] CONTINUOUS Care 10/28/20 23:41 Ordered RT Aerosol Therapy [RC] ASDIRECTED Care 10/28/20 19:08 Active RT Aerosol Therapy [RC] ASDIRECTED Care 10/28/20 22:29 Active RT Aerosol Therapy [RC] ASDIRECTED Care 10/28/20 23:51 Ordered Up With Assistance [RC] ASDIRECTED Care 10/28/20 23:36 Ordered VTE/DVT Education [RC] Per Unit Routine Care 10/28/20 23:37 Ordered Vital Signs [RC] Q4H Care 10/28/20 23:37 Ordered Nothing per Oral Now Diet [DIET] Diet 10/28/20 Breakfast Ordered CBC WITH AUTO DIFF [HEME] AM Lab 10/29/20 05:11 Ordered COMPREHENSIVE METABOLIC PN,CMP [CHEM] AM Lab 10/29/20 05:11 Ordered CULTURE BLOOD [BC] Urgent Lab 10/28/20 19:00 Received CULTURE BLOOD [BC] Urgent Lab 10/28/20 19:10 Received LACTIC ACID [CHEM] AM Lab 10/29/20 05:11 Ordered Acetaminophen [TylenoL] Med 10/28/20 23:36 Ordered 650 mg PO Q4H PRN Albuterol [Proventil Neb Soln] Med 10/28/20 23:36 Ordered 2.5 mg NEB Q2H PRN Albuterol/Ipratropium [DuoNeb 3.0-0.5 MG/3 ML] Med 10/28/20 23:36 Ordered 3 ml NEB Q2H PRN Morphine Med 10/28/20 23:36 Ordered 2 mg IVPUSH Q2H PRN Nicotine [Habitrol] Med 10/29/20 09:00 Ordered 7 mg TRDERM DAILY Ondansetron [Zofran ODT] Med 10/28/20 23:36 Ordered 4 mg PO Q6H PRN Sodium Chloride 0.9% [Saline Flush] Med 10/28/20 18:51 Active 10 ml FLUSH ASDIRECTED PRN oxyCODONE Med 10/28/20 23:36 Ordered 5 mg PO Q4H PRN Blood Culture x2 Reflex Set [OM.PC] Urgent Oth 10/28/20 18:55 Ordered Saline Lock Insert [OM.PC] Routine Oth 10/28/20 18:51 Ordered Severe Sepsis Onset Time [OM.PC] Stat Oth 10/28/20 19:59 Ordered Resuscitation Status Routine Resus Stat 10/28/20 23:36 Ordered EKG 12 Lead [EK] Routine Ther 10/28/20 18:51 Ordered Medication Orders Acetaminophen (Tylenol) 650 mg PO Q4H PRN PRN Reason: Pain (Mild 1-3)/fever Albuterol (Proventil Neb Soln) 2.5 mg NEB Q2H PRN PRN Reason: Shortness Of Breath/wheezing Albuterol/Ipratropium (Duoneb 3.0-0.5 Mg/3 Ml) 3 ml NEB Q2H PRN PRN Reason: Shortness Of Breath/wheezing Morphine Sulfate (Morphine) 2 mg IVPUSH Q2H PRN PRN Reason: Pain (severe 7-10) Nicotine (Habitrol) 7 mg TRDERM DAILY ASHLEY Ondansetron HCl (Zofran Odt) 4 mg PO Q6H PRN PRN Reason: Nausea able to take PO Oxycodone HCl (Oxycodone) 5 mg PO Q4H PRN PRN Reason: Pain (moderate 4-6) Sodium Chloride (Saline Flush) 10 ml FLUSH ASDIRECTED PRN PRN Reason: Keep Vein Open Last Admin: 10/28/20 23:06 Dose: 10 ml Documented by: Admin: 10/28/20 19:05 Dose: 10 ml Documented by: MISAEL - Mortality Measure Prognosis:: Good
[2020-10-29] MEDS: Albuterol/Ipratropium 3.0-0.5 MG/3 ML Neb Soln NEB PRN ×4 (00:46→22:02)
[2020-10-29] MEDS ORDERED: Simvastatin 20 MG Tab PO ONE ×3 (00:52→21:00)
[2020-10-29] MEDS: Morphine 2 MG/ML SYRINGE IVPUSH PRN (02:06)
[2020-10-29] MEDS ORDERED: Metoprolol Tartrate 25 MG Tab PO ONE (02:39)
[2020-10-29] MEDS ORDERED: Furosemide 20 MG/2 ML VIAL IVPUSH ONE (02:39)
[2020-10-29] MEDS: Nicotine 7 MG/24 Hr Patch TRDERM SCH (08:43)
[2020-10-29] MEDS ORDERED: Aspirin 81 MG Tab.Chew PO SCH (09:00)
[2020-10-29] MEDS ORDERED: Metoprolol Tartrate 25 MG Tab PO SCH (10:30)
[2020-10-29] MEDS ORDERED: Non-Formulary Medication 1 Each (Aspirin [Aspirin] 325 MG) PO SCH (10:30)
[2020-10-29] MEDS: Levothyroxine 25 MCG Tab PO SCH (10:41)
[2020-10-29] MEDS: Furosemide 40 MG Tab PO SCH (10:42)
[2020-10-29] MEDS: Lactobacillus Rhamnosus GG (Probiotic) Cap PO SCH ×2 (10:42→20:08)
[2020-10-29] MEDS: methylPREDNISolone Sodium Succinate 40 MG/1 ML SDV IVPUSH SCH ×3 (10:43→22:03)
[2020-10-29] MEDS ORDERED: Aspirin 81 MG Tab.Chew PO ONE (11:00)
[2020-10-29] MEDS: Doxycycline 100 MG in Sodium Chloride 0.9% 100 ML IV SCH ×2 (11:45→22:07)
--- NOTE | 2020-10-29 15:57 | PCM.PN ---
- General Info Date of Service: 10/29/20 Subjective Update: Mr. Monroy is an 85-year-old gentleman who was admitted late last night with hypoxia secondary to bilateral pulmonary infiltrates and COPD exacerbation. There is also question of possible congestive heart failure exacerbation contributing to current symptoms. Today he feels improved from admission with less shortness of breath. Functional Status: Reports: Tolerating Diet - Review of Systems General: Reports: Weakness, Fatigue. Denies: Fever, Chills Pulmonary: Reports: Shortness of Breath, Cough, Wheezing. Denies: Pleuritic Chest Pain, Sputum, Hemoptysis Cardiovascular: Reports: Dyspnea on Exertion, Orthopnea, Edema. Denies: Chest Pain, Palpitations, PND, Lightheadedness Gastrointestinal: Reports: No Symptoms Genitourinary: Reports: No Symptoms - Patient Data Vitals - Most Recent: Last Vital Signs Temp 97.8 F 10/29/20 13:00 Pulse 105 H 10/29/20 15:00 Resp 28 H 10/29/20 15:00 BP 115/68 10/29/20 15:00 Pulse Ox 92 L 10/29/20 15:00 Weight - Most Recent: 144 lb 11.206 oz I&O - Last 24 Hours: Intake & Output 10/29/20 10/29/20 10/29/20 06:59 14:59 22:59 Intake Total 240 Output Total 200 250 225 Balance -200 -250 15 Lab Results Last 24 Hours: Laboratory Results - last 24 hr 10/28/20 10/28/20 10/28/20 Range/Units 18:51 18:59 18:59 WBC 11.7 H (4.5-11.0) K/uL RBC 4.68 (4.30-5.90) M/uL Hgb 14.3 (12.0-15.0) g/dL Hct 45.2 (40.0-54.0) % MCV 97 (80-98) fL MCH 31 (27-31) pg MCHC 32 (32-36) % Plt Count 230 (150-400) K/uL Neut % (Auto) 53 (36-66) % Lymph % (Auto) 34 (24-44) % Clayton % (Auto) 10 H (2-6) % Eos % (Auto) 3 (2-4) % Baso % (Auto) 0 (0-1) % PT 11.6 (9.5-12.0) sec INR 1.07 (0.80-1.20) Sodium 137 L (140-148) mmol/L Potassium 3.0 L (3.6-5.2) mmol/L Chloride 98 L (100-108) mmol/L Carbon Dioxide 25 (21-32) mmol/L Anion Gap 17.0 H (5.0-14.0) mmol/L BUN 17 (7-18) mg/dL Creatinine 1.1 (0.8-1.3) mg/dL Est Cr Clr Drug Dosing 45.67 mL/min Estimated GFR (MDRD) > 60 (>60) Glucose 201 H (74-106) mg/dL Lactic Acid (0.4-2.0) mmol/L Calcium 9.0 (8.5-10.1) mg/dL Total Bilirubin 0.9 (0.2-1.0) mg/dL AST 16 (15-37) U/L ALT 20 (12-78) U/L Alkaline Phosphatase 107 (46-116) U/L Troponin I < 0.017 (0.000-0.056) ng/mL C-Reactive Protein 2.08 H (0.0-0.3) mg/dL NT-Pro-B Natriuret Pep 84540 H (5-450) pg/mL Total Protein 7.9 (6.4-8.2) g/dL Albumin 3.4 (3.4-5.0) g/dL Globulin 4.5 H (2.3-3.5) g/dL Albumin/Globulin Ratio 0.8 L (1.2-2.2) Urine Color (YELLOW) Urine Appearance (CLEAR) Urine pH (5.0-8.0) Ur Specific Bay (1.008-1.030) Urine Protein (NEGATIVE) mg/dL Urine Glucose (UA) (NEGATIVE) mg/dL Urine Ketones (NEGATIVE) mg/dL Urine Occult Blood (NEGATIVE) Urine Nitrite (NEGATIVE) Urine Bilirubin (NEGATIVE) Urine Urobilinogen (0.2-1.0) EU/dL Ur Leukocyte Esterase (NEGATIVE) Urine RBC (0-5) Urine WBC (0-5) Ur Epithelial Cells Amorphous Sediment Urine Bacteria Urine Mucus Influenza Type A RNA (NEGATIVE) Influenza Type B RNA (NEGATIVE) RSV Rapid (NEGATIVE) SARS-CoV-2 RNA ([place]) (NEGATIVE) 10/28/20 10/28/20 10/28/20 Range/Units 18:59 19:41 20:12 WBC (4.5-11.0) K/uL RBC (4.30-5.90) M/uL Hgb (12.0-15.0) g/dL Hct (40.0-54.0) % MCV (80-98) fL MCH (27-31) pg MCHC (32-36) % Plt Count (150-400) K/uL Neut % (Auto) (36-66) % Lymph % (Auto) (24-44) % Clayton % (Auto) (2-6) % Eos % (Auto) (2-4) % Baso % (Auto) (0-1) % PT (9.5-12.0) sec INR (0.80-1.20) Sodium (140-148) mmol/L Potassium (3.6-5.2) mmol/L Chloride (100-108) mmol/L Carbon Dioxide (21-32) mmol/L Anion Gap (5.0-14.0) mmol/L BUN (7-18) mg/dL Creatinine (0.8-1.3) mg/dL Est Cr Clr Drug Dosing mL/min Estimated GFR (MDRD) (>60) Glucose (74-106) mg/dL Lactic Acid 4.4 H (0.4-2.0) mmol/L Calcium (8.5-10.1) mg/dL Total Bilirubin (0.2-1.0) mg/dL AST (15-37) U/L ALT (12-78) U/L Alkaline Phosphatase (46-116) U/L Troponin I (0.000-0.056) ng/mL C-Reactive Protein (0.0-0.3) mg/dL NT-Pro-B Natriuret Pep (5-450) pg/mL Total Protein (6.4-8.2) g/dL Albumin (3.4-5.0) g/dL Globulin (2.3-3.5) g/dL Albumin/Globulin Ratio (1.2-2.2) Urine Color Yellow (YELLOW) Urine Appearance Clear (CLEAR) Urine pH 6.0 (5.0-8.0) Ur Specific Bay 1.025 (1.008-1.030) Urine Protein >=300 H (NEGATIVE) mg/dL Urine Glucose (UA) Negative (NEGATIVE) mg/dL Urine Ketones Negative (NEGATIVE) mg/dL Urine Occult Blood Small H (NEGATIVE) Urine Nitrite Negative (NEGATIVE) Urine Bilirubin Negative (NEGATIVE) Urine Urobilinogen 2.0 H (0.2-1.0) EU/dL Ur Leukocyte Esterase Negative (NEGATIVE) Urine RBC 5-10 H (0-5) Urine WBC 0-5 (0-5) Ur Epithelial Cells Not seen Amorphous Sediment Not seen Urine Bacteria Not seen Urine Mucus Few Influenza Type A RNA Negative (NEGATIVE) Influenza Type B RNA Negative (NEGATIVE) RSV Rapid Negative (NEGATIVE) SARS-CoV-2 RNA ([place]) Negative (NEGATIVE) 10/28/20 10/28/20 10/29/20 Range/Units 21:51 21:51 04:10 WBC 6.9 (4.5-11.0) K/uL RBC 4.17 L (4.30-5.90) M/uL Hgb 13.0 (12.0-15.0) g/dL Hct 40.4 (40.0-54.0) % MCV 97 (80-98) fL MCH 31 (27-31) pg MCHC 32 (32-36) % Plt Count 185 (150-400) K/uL Neut % (Auto) 95 H (36-66) % Lymph % (Auto) 4 L (24-44) % Clayton % (Auto) 1 L (2-6) % Eos % (Auto) 0 L (2-4) % Baso % (Auto) 0 (0-1) % PT (9.5-12.0) sec INR (0.80-1.20) Sodium (140-148) mmol/L Potassium (3.6-5.2) mmol/L Chloride (100-108) mmol/L Carbon Dioxide (21-32) mmol/L Anion Gap (5.0-14.0) mmol/L BUN (7-18) mg/dL Creatinine (0.8-1.3) mg/dL Est Cr Clr Drug Dosing mL/min Estimated GFR (MDRD) (>60) Glucose (74-106) mg/dL Lactic Acid 1.4 (0.4-2.0) mmol/L Calcium (8.5-10.1) mg/dL Total Bilirubin (0.2-1.0) mg/dL AST (15-37) U/L ALT (12-78) U/L Alkaline Phosphatase (46-116) U/L Troponin I 0.024 (0.000-0.056) ng/mL C-Reactive Protein (0.0-0.3) mg/dL NT-Pro-B Natriuret Pep (5-450) pg/mL Total Protein (6.4-8.2) g/dL Albumin (3.4-5.0) g/dL Globulin (2.3-3.5) g/dL Albumin/Globulin Ratio (1.2-2.2) Urine Color (YELLOW) Urine Appearance (CLEAR) Urine pH (5.0-8.0) Ur Specific Bay (1.008-1.030) Urine Protein (NEGATIVE) mg/dL Urine Glucose (UA) (NEGATIVE) mg/dL Urine Ketones (NEGATIVE) mg/dL Urine Occult Blood (NEGATIVE) Urine Nitrite (NEGATIVE) Urine Bilirubin (NEGATIVE) Urine Urobilinogen (0.2-1.0) EU/dL Ur Leukocyte Esterase (NEGATIVE) Urine RBC (0-5) Urine WBC (0-5) Ur Epithelial Cells Amorphous Sediment Urine Bacteria Urine Mucus Influenza Type A RNA (NEGATIVE) Influenza Type B RNA (NEGATIVE) RSV Rapid (NEGATIVE) SARS-CoV-2 RNA ([place]) (NEGATIVE) 10/29/20 10/29/20 Range/Units 04:10 04:10 WBC (4.5-11.0) K/uL RBC (4.30-5.90) M/uL Hgb (12.0-15.0) g/dL Hct (40.0-54.0) % MCV (80-98) fL MCH (27-31) pg MCHC (32-36) % Plt Count (150-400) K/uL Neut % (Auto) (36-66) % Lymph % (Auto) (24-44) % Clayton % (Auto) (2-6) % Eos % (Auto) (2-4) % Baso % (Auto) (0-1) % PT (9.5-12.0) sec INR (0.80-1.20) Sodium 140 (140-148) mmol/L Potassium 3.7 (3.6-5.2) mmol/L Chloride 102 (100-108) mmol/L Carbon Dioxide 26 (21-32) mmol/L Anion Gap 12.1 (5.0-14.0) mmol/L BUN 18 (7-18) mg/dL Creatinine 1.0 (0.8-1.3) mg/dL Est Cr Clr Drug Dosing 50.14 mL/min Estimated GFR (MDRD) > 60 (>60) Glucose 168 H (74-106) mg/dL Lactic Acid 2.4 H (0.4-2.0) mmol/L Calcium 8.7 (8.5-10.1) mg/dL Total Bilirubin 0.7 (0.2-1.0) mg/dL AST 16 (15-37) U/L ALT 20 (12-78) U/L Alkaline Phosphatase 93 (46-116) U/L Troponin I (0.000-0.056) ng/mL C-Reactive Protein (0.0-0.3) mg/dL NT-Pro-B Natriuret Pep (5-450) pg/mL Total Protein 7.2 (6.4-8.2) g/dL Albumin 3.0 L (3.4-5.0) g/dL Globulin 4.2 H (2.3-3.5) g/dL Albumin/Globulin Ratio 0.7 L (1.2-2.2) Urine Color (YELLOW) Urine Appearance (CLEAR) Urine pH (5.0-8.0) Ur Specific Bay (1.008-1.030) Urine Protein (NEGATIVE) mg/dL Urine Glucose (UA) (NEGATIVE) mg/dL Urine Ketones (NEGATIVE) mg/dL Urine Occult Blood (NEGATIVE) Urine Nitrite (NEGATIVE) Urine Bilirubin (NEGATIVE) Urine Urobilinogen (0.2-1.0) EU/dL Ur Leukocyte Esterase (NEGATIVE) Urine RBC (0-5) Urine WBC (0-5) Ur Epithelial Cells Amorphous Sediment Urine Bacteria Urine Mucus Influenza Type A RNA (NEGATIVE) Influenza Type B RNA (NEGATIVE) RSV Rapid (NEGATIVE) SARS-CoV-2 RNA ([place]) (NEGATIVE) Med Orders - Current: Current Medications Acetaminophen (Tylenol) 650 mg PO Q4H PRN PRN Reason: Pain (Mild 1-3)/fever Albuterol (Proventil Neb Soln) 2.5 mg NEB Q2H PRN PRN Reason: Shortness Of Breath/wheezing Albuterol/Ipratropium (Duoneb 3.0-0.5 Mg/3 Ml) 3 ml NEB Q2H PRN PRN Reason: Shortness Of Breath/wheezing Last Admin: 10/29/20 11:12 Dose: 3 ml Documented by: Aspirin (Ecotrin) 325 mg PO DAILY [facility] Furosemide (Lasix) 40 mg PO DAILY [facility] Last Admin: 10/29/20 10:42 Dose: 40 mg Documented by: Ceftriaxone Sodium 1 gm/ (Sodium Chloride) 50 mls @ 100 mls/hr IV Q24H ASHLEY Doxycycline Hyclate 100 mg/ (Sodium Chloride) 100 mls @ 100 mls/hr IV Q12H [facility] Last Admin: 10/29/20 11:45 Dose: 100 mls/hr Documented by: Lactobacillus Rhamnosus (Culturelle) 1 cap PO BID [facility] Last Admin: 10/29/20 10:42 Dose: 1 cap Documented by: Levothyroxine Sodium (Levothyroxine) 25 mcg PO ACBREAKFAST [facility] Last Admin: 10/29/20 10:41 Dose: 25 mcg Documented by: Methylprednisolone Sodium Succinate (Solu-Medrol) 40 mg IVPUSH Q6H [facility] Last Admin: 10/29/20 15:36 Dose: 40 mg Documented by: Metoprolol Tartrate (Lopressor) 12.5 mg PO BID [facility] Morphine Sulfate (Morphine) 2 mg IVPUSH Q2H PRN PRN Reason: Pain (severe 7-10) Last Admin: 10/29/20 02:06 Dose: 2 mg Documented by: Nicotine (Habitrol) 7 mg TRDERM DAILY [facility] Last Admin: 10/29/20 08:43 Dose: 7 mg Documented by: Ondansetron HCl (Zofran Odt) 4 mg PO Q6H PRN PRN Reason: Nausea able to take PO Oxycodone HCl (Oxycodone) 5 mg PO Q4H PRN PRN Reason: Pain (moderate 4-6) Simvastatin (Zocor) 20 mg PO BEDTIME ONE Stop: 10/29/20 21:01 Simvastatin (Zocor) 40 mg PO BEDTIME [facility] Sodium Chloride (Saline Flush) 10 ml FLUSH ASDIRECTED PRN PRN Reason: Keep Vein Open Last Admin: 10/28/20 23:06 Dose: 10 ml Documented by: Discontinued Medications Albuterol/Ipratropium (Duoneb 3.0-0.5 Mg/3 Ml) 3 ml NEB ONETIME ONE Stop: 10/28/20 19:09 Last Admin: 10/28/20 19:25 Dose: 3 ml Documented by: Albuterol/Ipratropium (Duoneb 3.0-0.5 Mg/3 Ml) 3 ml NEB ONETIME ONE Stop: 10/28/20 22:30 Last Admin: 10/28/20 22:32 Dose: 3 ml Documented by: Aspirin (Aspirin) 81 mg PO DAILY ASHLEY Last Admin: 10/29/20 08:43 Dose: 81 mg Documented by: Aspirin (Aspirin) 243 mg PO ONETIME ONE Stop: 10/29/20 11:01 Last Admin: 10/29/20 10:41 Dose: 243 mg Documented by: Furosemide (Lasix) 20 mg IVPUSH ONETIME ONE Stop: 10/29/20 02:40 Last Admin: 10/29/20 02:51 Dose: 20 mg Documented by: Ceftriaxone Sodium 1 gm/ (Sodium Chloride) 50 mls @ 100 mls/hr IV ONETIME ONE Stop: 10/28/20 19:58 Last Admin: 10/28/20 20:24 Dose: 100 mls/hr Documented by: Sodium Chloride (Normal Saline) 1,000 mls @ 1,000 mls/hr IV BOLUS ONE; Protocol Stop: 10/28/20 20:58 Last Admin: 10/28/20 20:18 Dose: 1,000 mls/hr Documented by: Vancomycin HCl 1 gm/ Sodium (Chloride) 250 mls @ 167 mls/hr IV STAT ONE Stop: 10/28/20 21:28 Last Admin: 10/28/20 20:52 Dose: 167 mls/hr Documented by: Methylprednisolone Sodium Succinate (Solu-Medrol) 125 mg IVPUSH ONETIME ONE Stop: 10/28/20 22:56 Last Admin: 10/28/20 23:06 Dose: 125 mg Documented by: Metoprolol Tartrate (Lopressor) 25 mg PO ONETIME ONE Stop: 10/29/20 02:40 Last Admin: 10/29/20 02:50 Dose: 25 mg Documented by: Metoprolol Tartrate (Lopressor) 25 mg PO BID ASHLEY Last Admin: 10/29/20 10:42 Dose: 25 mg Documented by: Potassium Chloride (Klor-Con M20) 40 meq PO ONETIME ONE Stop: 10/28/20 19:56 Last Admin: 10/28/20 20:17 Dose: 40 meq Documented by: Simvastatin (Zocor) 20 mg PO ONETIME ONE Stop: 10/29/20 00:53 Last Admin: 10/29/20 02:24 Dose: Not Given Documented by: Simvastatin (Zocor) 20 mg PO ONETIME ONE Stop: 10/29/20 09:01 Last Admin: 10/29/20 08:43 Dose: 20 mg Documented by: - Exam Quality Assessment: Supplemental Oxygen, DVT Prophylaxis General: Alert, Oriented, Cooperative, Mild Distress Lungs: Decreased Breath Sounds, Wheezing. No: Rales, Rhonchi Cardiovascular: No Murmurs, Irregular Rhythm, Tachycardia GI/Abdominal Exam: Soft, Non-Tender, No Organomegaly, No Distention Extremities: Non-Tender, Pedal Edema Sepsis Event Note - Evaluation Sepsis Screening Result: Severe Sepsis Risk - Focused Exam Vital Signs: Vital Signs Temp Pulse Pulse Resp BP BP Pulse Ox 10/29/20 15:00 105 H 28 H 115/68 92 L 10/29/20 14:00 104 H 28 H 113/87 93 L 10/29/20 13:00 97.8 F 127 H 29 H 100/66 95 10/29/20 12:00 122 H 25 H 103/59 L 93 L 10/29/20 10:42 110 H 119/86 10/29/20 10:00 119 H 24 H 119/86 91 L 10/29/20 09:00 86 28 H 108/84 94 L 10/29/20 08:33 30 H 94 L 10/29/20 08:00 98.4 F 113 H 22 H 120/93 H 95 10/29/20 06:00 26 H 117/78 91 L 10/29/20 05:00 27 H 111/69 91 L 10/29/20 04:00 26 H 109/79 87 L - Problem List Review Problem List Initiated/Reviewed/Updated: Yes - My Orders Last 24 Hours: My Active Orders 10/29/20 Breakfast 2 Gram Sodium Diet [DIET] 10/29/20 10:30 Furosemide [Lasix] 40 mg PO DAILY Lactobacillus Rhamnosus GG [Culturelle] 1 cap PO BID methylPREDNISolone Sod Succ [Solu-MEDROL] 40 mg IVPUSH Q6H 10/29/20 11:00 Doxycycline [Vibramycin] 100 mg Sodium Chloride 0.9% [Normal Saline] 100 ml IV Q12H Levothyroxine 25 mcg PO ACBREAKFAST 10/29/20 20:00 cefTRIAXone [Rocephin] 1 gm Sodium Chloride 0.9% [Normal Saline] 50 ml IV Q24H 10/29/20 21:00 Metoprolol Tartrate [Lopressor] 12.5 mg PO BID Simvastatin [Zocor] 20 mg PO BEDTIME ONE 10/30/20 05:00 BASIC METABOLIC PANEL,BMP [CHEM] Timed CBC WITH AUTO DIFF [HEME] Timed PROCALCITONIN [CHEM] Routine 10/30/20 09:00 Aspirin [Ecotrin] 325 mg PO DAILY 10/30/20 21:00 Simvastatin [Zocor] 40 mg PO BEDTIME - Plan Plan:: ASSESSMENT AND PLAN BILATERAL PNEUMONIA WITH PROBABLE SEPSIS-tachycardic and elevated lactic acid on admission, with borderline blood pressures. Improved with IV fluids given in the emergency department. -Blood cultures pending -Antibiotic therapy; ceftriaxone and doxycycline HYPOXIC RESPIRATORY FAILURE-secondary to underlying COPD exacerbation and pulmonary infiltrates, CHF may also be a contributing factor -Supplemental oxygen as needed -Correct and treat underlying problems ATRIAL FIBRILLATION WITH RAPID VENTRICULAR RESPONSE-prior history of A. fib -Monitor in ICU -Continue metoprolol for rate control COPD EXACERBATION-secondary to bilateral pneumonia -Nebulizer therapy as needed -Solu-Medrol 40 mg IV every 6 hours CONGESTIVE HEART FAILURE-prior history -Diuretic therapy as tolerated -Echocardiogram when available MAINTENANCE ISSUES -DVT prophylaxis; Lovenox 40 mg subcu daily -GI prophylaxis; not indicated -Childress catheter; not indicated -Nutrition; 2 g sodium diet -Nicotine dependence; nicotine patch CODE STATUS-FULL CODE ADMISSION STATUS-patient will be admitted to inpatient status, expect at least a 2 night hospital stay for evaluation and management of problems as outlined above. At the time of this admission I do not reasonably expected evaluation and management of this problem will require more than a 96 hour hospital stay. DISPOSITION-anticipate discharge to home after the hospital stay.
[2020-10-29] MEDS: Polyethylene Glycol 3350 Powder 17 GM Packet PO PRN (17:12)
[2020-10-29] MEDS: cefTRIAXone 1 GM in Sodium Chloride 0.9% 50 ML IV SCH (20:08)
[2020-10-29] MEDS: Metoprolol Tartrate 25 MG Tab PO SCH (20:08)
[2020-10-30] MEDS: Albuterol/Ipratropium 3.0-0.5 MG/3 ML Neb Soln NEB PRN ×3 (02:10→23:25)
[2020-10-30] MEDS: methylPREDNISolone Sodium Succinate 40 MG/1 ML SDV IVPUSH SCH ×4 (04:33→22:13)
[2020-10-30] MEDS: Levothyroxine 25 MCG Tab PO SCH (08:02)
[2020-10-30] MEDS: Nicotine 7 MG/24 Hr Patch TRDERM SCH (08:02)
[2020-10-30] MEDS: Lactobacillus Rhamnosus GG (Probiotic) Cap PO SCH ×2 (08:02→20:31)
[2020-10-30] MEDS: Furosemide 40 MG Tab PO SCH (08:02)
[2020-10-30] MEDS: Aspirin 325 MG Tab.EC PO SCH (08:02)
[2020-10-30] MEDS: Metoprolol Tartrate 25 MG Tab PO SCH ×3 (08:03→20:31)
[2020-10-30] MEDS ORDERED: Potassium Chloride 20 MEQ Tab.ER PO ONE ×2 (08:30→13:00)
[2020-10-30] MEDS ORDERED: Non-Formulary Medication 1 Each (Simvastatin [Simvastatin] 80 MG) PO SCH (09:00)
[2020-10-30] MEDS: Doxycycline 100 MG in Sodium Chloride 0.9% 100 ML IV SCH ×2 (10:55→22:18)
--- NOTE | 2020-10-30 16:04 | PCM.PN ---
- General Info Date of Service: 10/30/20 Subjective Update: Mr. Monroy felt improved over the last 24 hours with less shortness of breath. Continues to require supplemental oxygen and respiratory rate remains in the 20s. He has been afebrile as well as hemodynamically stable. Functional Status: Reports: Tolerating Diet, Urinating - Review of Systems General: Reports: Weakness, Fatigue. Denies: Fever, Chills Pulmonary: Reports: Shortness of Breath, Wheezing. Denies: Pleuritic Chest Pain, Cough, Sputum, Hemoptysis Cardiovascular: Reports: Dyspnea on Exertion. Denies: Chest Pain, Palpitations, Orthopnea, PND, Edema, Lightheadedness Gastrointestinal: Reports: No Symptoms - Patient Data Vitals - Most Recent: Last Vital Signs Temp 98.6 F 10/30/20 12:00 Pulse 110 H 10/30/20 15:00 Resp 28 H 10/30/20 15:00 BP 118/75 10/30/20 15:00 Pulse Ox 93 L 10/30/20 15:00 Weight - Most Recent: 144 lb 11.206 oz I&O - Last 24 Hours: Intake & Output 10/30/20 10/30/20 10/30/20 06:59 14:59 22:59 Intake Total 150 240 Output Total 175 125 Balance -25 115 Lab Results Last 24 Hours: Laboratory Results - last 24 hr 10/30/20 10/30/20 10/30/20 Range/Units 04:15 04:15 04:15 WBC 15.0 H (4.5-11.0) K/uL RBC 4.02 L (4.30-5.90) M/uL Hgb 12.8 (12.0-15.0) g/dL Hct 39.0 L (40.0-54.0) % MCV 97 (80-98) fL MCH 32 H (27-31) pg MCHC 33 (32-36) % Plt Count 116 L (150-400) K/uL Neut % (Auto) 90 H (36-66) % Lymph % (Auto) 4 L (24-44) % [place] % (Auto) 6 (2-6) % Eos % (Auto) 0 L (2-4) % Baso % (Auto) 0 (0-1) % Sodium 137 L (140-148) mmol/L Potassium 3.1 L (3.6-5.2) mmol/L Chloride 100 (100-108) mmol/L Carbon Dioxide 24 (21-32) mmol/L Anion Gap 16.1 H (5.0-14.0) mmol/L BUN 31 H D (7-18) mg/dL Creatinine 1.2 (0.8-1.3) mg/dL Est Cr Clr Drug Dosing 41.78 mL/min Estimated GFR (MDRD) 58 L (>60) Glucose 172 H (74-106) mg/dL Calcium 9.1 (8.5-10.1) mg/dL Procalcitonin < 0.05 ng/mL [place] Results Last 24 Hours: Microbiology 10/28/20 19:00 Aerobic Blood Culture - Preliminary Blood - Arm, Left NO GROWTH AFTER 1 DAY Anaerobic Blood Culture - Preliminary NO GROWTH AFTER 1 DAY 10/28/20 19:10 Aerobic Blood Culture - Preliminary Blood - Arm, Left NO GROWTH AFTER 1 DAY Anaerobic Blood Culture - Preliminary NO GROWTH AFTER 1 DAY Med Orders - Current: Current Medications Acetaminophen (Tylenol) 650 mg PO Q4H PRN PRN Reason: Pain (Mild 1-3)/fever Albuterol (Proventil Neb Soln) 2.5 mg NEB Q2H PRN PRN Reason: Shortness Of Breath/wheezing Albuterol/Ipratropium (Duoneb 3.0-0.5 Mg/3 Ml) 3 ml NEB Q2H PRN PRN Reason: Shortness Of Breath/wheezing Last Admin: 10/30/20 02:10 Dose: 3 ml Documented by: Aspirin (Ecotrin) 325 mg PO DAILY [facility] Last Admin: 10/30/20 08:02 Dose: 325 mg Documented by: Digoxin (Lanoxin) 250 mcg IVPUSH ONETIME ONE Stop: 10/30/20 15:58 Furosemide (Lasix) 40 mg PO DAILY [facility] Last Admin: 10/30/20 08:02 Dose: 40 mg Documented by: Ceftriaxone Sodium 1 gm/ (Sodium Chloride) 50 mls @ 100 mls/hr IV Q24H [facility] Last Admin: 10/29/20 20:08 Dose: 100 mls/hr Documented by: Doxycycline Hyclate 100 mg/ (Sodium Chloride) 100 mls @ 100 mls/hr IV Q12H [facility] Last Admin: 10/30/20 10:55 Dose: 100 mls/hr Documented by: Lactobacillus Rhamnosus (Culturelle) 1 cap PO BID [facility] Last Admin: 10/30/20 08:02 Dose: 1 cap Documented by: Levothyroxine Sodium (Levothyroxine) 25 mcg PO ACBREAKFAST [facility] Last Admin: 10/30/20 08:02 Dose: 25 mcg Documented by: Methylprednisolone Sodium Succinate (Solu-Medrol) 40 mg IVPUSH Q6H [facility] Last Admin: 10/30/20 15:45 Dose: 40 mg Documented by: Metoprolol Tartrate (Lopressor) 25 mg PO BID [facility] Last Admin: 10/30/20 09:25 Dose: 25 mg Documented by: Morphine Sulfate (Morphine) 2 mg IVPUSH Q2H PRN PRN Reason: Pain (severe 7-10) Last Admin: 10/29/20 02:06 Dose: 2 mg Documented by: Nicotine (Habitrol) 7 mg TRDERM DAILY [facility] Last Admin: 10/30/20 08:02 Dose: 7 mg Documented by: Ondansetron HCl (Zofran Odt) 4 mg PO Q6H PRN PRN Reason: Nausea able to take PO Oxycodone HCl (Oxycodone) 5 mg PO Q4H PRN PRN Reason: Pain (moderate 4-6) Polyethylene Glycol (Miralax) 17 gm PO DAILY PRN PRN Reason: Constipation Last Admin: 10/29/20 17:12 Dose: 17 gm Documented by: Simvastatin (Zocor) 40 mg PO BEDTIME [facility] Sodium Chloride (Saline Flush) 10 ml FLUSH ASDIRECTED PRN PRN Reason: Keep Vein Open Last Admin: 10/28/20 23:06 Dose: 10 ml Documented by: Discontinued Medications Albuterol/Ipratropium (Duoneb 3.0-0.5 Mg/3 Ml) 3 ml NEB ONETIME ONE Stop: 10/28/20 19:09 Last Admin: 10/28/20 19:25 Dose: 3 ml Documented by: Albuterol/Ipratropium (Duoneb 3.0-0.5 Mg/3 Ml) 3 ml NEB ONETIME ONE Stop: 10/28/20 22:30 Last Admin: 10/28/20 22:32 Dose: 3 ml Documented by: Aspirin (Aspirin) 81 mg PO DAILY [facility] Last Admin: 10/29/20 08:43 Dose: 81 mg Documented by: Aspirin (Aspirin) 243 mg PO ONETIME ONE Stop: 10/29/20 11:01 Last Admin: 10/29/20 10:41 Dose: 243 mg Documented by: Furosemide (Lasix) 20 mg IVPUSH ONETIME ONE Stop: 10/29/20 02:40 Last Admin: 10/29/20 02:51 Dose: 20 mg Documented by: Ceftriaxone Sodium 1 gm/ (Sodium Chloride) 50 mls @ 100 mls/hr IV ONETIME ONE Stop: 10/28/20 19:58 Last Admin: 10/28/20 20:24 Dose: 100 mls/hr Documented by: Sodium Chloride (Normal Saline) 1,000 mls @ 1,000 mls/hr IV BOLUS ONE; Protocol Stop: 10/28/20 20:58 Last Admin: 10/28/20 20:18 Dose: 1,000 mls/hr Documented by: Vancomycin HCl 1 gm/ Sodium (Chloride) 250 mls @ 167 mls/hr IV STAT ONE Stop: 10/28/20 21:28 Last Admin: 10/28/20 20:52 Dose: 167 mls/hr Documented by: Methylprednisolone Sodium Succinate (Solu-Medrol) 125 mg IVPUSH ONETIME ONE Stop: 10/28/20 22:56 Last Admin: 10/28/20 23:06 Dose: 125 mg Documented by: Metoprolol Tartrate (Lopressor) 25 mg PO ONETIME ONE Stop: 10/29/20 02:40 Last Admin: 10/29/20 02:50 Dose: 25 mg Documented by: Metoprolol Tartrate (Lopressor) 25 mg PO BID [facility] Last Admin: 10/29/20 10:42 Dose: 25 mg Documented by: Metoprolol Tartrate (Lopressor) 12.5 mg PO BID [facility] Last Admin: 10/30/20 08:03 Dose: 12.5 mg Documented by: Potassium Chloride (Klor-Con M20) 40 meq PO ONETIME ONE Stop: 10/28/20 19:56 Last Admin: 10/28/20 20:17 Dose: 40 meq Documented by: Potassium Chloride (Klor-Con M20) 40 meq PO ONETIME ONE Stop: 10/30/20 08:31 Last Admin: 10/30/20 09:25 Dose: 40 meq Documented by: Potassium Chloride (Klor-Con M20) 40 meq PO ONETIME ONE Stop: 10/30/20 13:01 Last Admin: 10/30/20 14:28 Dose: 40 meq Documented by: Simvastatin (Zocor) 20 mg PO ONETIME ONE Stop: 10/29/20 00:53 Last Admin: 10/29/20 02:24 Dose: Not Given Documented by: Simvastatin (Zocor) 20 mg PO ONETIME ONE Stop: 10/29/20 09:01 Last Admin: 10/29/20 08:43 Dose: 20 mg Documented by: Simvastatin (Zocor) 20 mg PO BEDTIME ONE Stop: 10/29/20 21:01 Last Admin: 10/29/20 20:08 Dose: 20 mg Documented by: - Exam Quality Assessment: Supplemental Oxygen, DVT Prophylaxis General: Alert, Oriented, Cooperative, No Acute Distress Lungs: Decreased Breath Sounds, Wheezing. No: Rales, Rhonchi, Rub Cardiovascular: No Murmurs, Irregular Rhythm, Tachycardia GI/Abdominal Exam: Soft, Non-Tender, No Organomegaly, No Distention Extremities: Non-Tender, No Pedal Edema Sepsis Event Note - Evaluation Sepsis Screening Result: Sepsis Risk - Focused Exam Vital Signs: Vital Signs Temp Pulse Pulse Resp BP BP Pulse Ox 10/30/20 15:00 110 H 28 H 118/75 93 L 10/30/20 14:00 119 H 24 H 118/78 94 L 10/30/20 13:00 107 H 30 H 109/81 92 L 10/30/20 12:00 98.6 F 105 H 14 114/78 93 L 10/30/20 11:00 104 H 28 H 100/72 95 10/30/20 09:25 130 H 118/65 10/30/20 09:00 107 H 28 H 118/55 L 98 10/30/20 08:03 120 H 110/71 10/30/20 08:00 98.6 F 126 H 25 H 110/71 96 10/30/20 06:00 31 H 118/76 95 10/30/20 05:00 34 H 118/81 92 L 10/30/20 04:00 28 H 117/76 94 L - Problem List Review Problem List Initiated/Reviewed/Updated: Yes - My Orders Last 24 Hours: My Active Orders 10/29/20 16:49 polyethylene glycoL 3350 [MiraLAX] 17 gm PO DAILY PRN 10/29/20 20:00 cefTRIAXone [Rocephin] 1 gm Sodium Chloride 0.9% [Normal Saline] 50 ml IV Q24H 10/30/20 09:00 Aspirin [Ecotrin] 325 mg PO DAILY Metoprolol Tartrate [Lopressor] 25 mg PO BID 10/30/20 15:57 Digoxin [Lanoxin] 250 mcg IVPUSH ONETIME ONE 10/30/20 21:00 Simvastatin [Zocor] 40 mg PO BEDTIME 10/31/20 05:00 BASIC METABOLIC PANEL,BMP [CHEM] Timed CBC WITH AUTO DIFF [HEME] Timed - Plan Plan:: ASSESSMENT AND PLAN BILATERAL PNEUMONIA WITH PROBABLE SEPSIS -Blood cultures pending -Antibiotic therapy; ceftriaxone and doxycycline HYPOXIC RESPIRATORY FAILURE-secondary to underlying COPD exacerbation and pulmonary infiltrates, CHF may also be a contributing factor -Supplemental oxygen as needed -Correct and treat underlying problems ATRIAL FIBRILLATION WITH RAPID VENTRICULAR RESPONSE-prior history of A. fib -Monitor in ICU -Continue metoprolol for rate control -Digoxin 0.25 mg IV now COPD EXACERBATION-secondary to bilateral pneumonia -Nebulizer therapy as needed -Solu-Medrol 40 mg IV every 6 hours CONGESTIVE HEART FAILURE-prior history -Furosemide 40 mg IV now reassess in a.m. -Echocardiogram when available MAINTENANCE ISSUES -DVT prophylaxis; Lovenox 40 mg subcu daily -GI prophylaxis; not indicated -Childress catheter; not indicated -Nutrition; 2 g sodium diet -Nicotine dependence; nicotine patch CODE STATUS-FULL CODE ADMISSION STATUS-patient will be admitted to inpatient status, expect at least a 2 night hospital stay for evaluation and management of problems as outlined abo ve. At the time of this admission I do not reasonably expected evaluation and management of this problem will require more than a 96 hour hospital stay. DISPOSITION-anticipate discharge to home after the hospital stay.
[2020-10-30] MEDS ORDERED: Digoxin 500 MCG/2 ML Amp IVPUSH ONE (16:10)
[2020-10-30] MEDS ORDERED: Furosemide 40 MG/4 ML VIAL IVPUSH ONE (16:10)
[2020-10-30] MEDS: Enoxaparin 40 MG/0.4 ML Syringe SUBCUT SCH (16:39)
[2020-10-30] MEDS: cefTRIAXone 1 GM in Sodium Chloride 0.9% 50 ML IV SCH (19:49)
[2020-10-30] MEDS: Simvastatin 20 MG Tab PO SCH (20:31)
[2020-10-30] MEDS: Polyethylene Glycol 3350 Powder 17 GM Packet PO PRN (21:24)
[2020-10-31] MEDS: Morphine 2 MG/ML SYRINGE IVPUSH PRN ×2 (00:49→23:50)
[2020-10-31] MEDS: methylPREDNISolone Sodium Succinate 40 MG/1 ML SDV IVPUSH SCH (03:39)
[2020-10-31] MEDS: Lactobacillus Rhamnosus GG (Probiotic) Cap PO SCH ×3 (07:59→21:11)
[2020-10-31] MEDS: Aspirin 325 MG Tab.EC PO SCH (07:59)
[2020-10-31] MEDS: Levothyroxine 25 MCG Tab PO SCH (07:59)
[2020-10-31] MEDS: Metoprolol Tartrate 25 MG Tab PO SCH ×3 (07:59→21:12)
[2020-10-31] MEDS: Nicotine 7 MG/24 Hr Patch TRDERM SCH (08:00)
--- NOTE | 2020-10-31 09:37 | PCM.PN ---
- General Info Date of Service: 10/31/20 Subjective Update: Mr. Monroy continues to experience elevated heart rate related to his atrial fibrillation. Overall he reports his respiratory status is improved and he feels less short of breath although continues to require supplemental oxygen. Creatinine did rise some yesterday following extra dose of furosemide in the afternoon. Functional Status: Reports: Tolerating Diet, Urinating - Review of Systems General: Reports: Weakness, Fatigue. Denies: Fever, Chills Pulmonary: Reports: Shortness of Breath. Denies: Pleuritic Chest Pain, Cough, Sputum, Hemoptysis, Wheezing Cardiovascular: Reports: Dyspnea on Exertion. Denies: Chest Pain, Palpitations, Orthopnea, PND, Edema Gastrointestinal: Reports: No Symptoms Genitourinary: Reports: No Symptoms - Patient Data Vitals - Most Recent: Last Vital Signs Temp 96.2 F L 10/31/20 07:00 Pulse 125 H 10/31/20 08:00 Resp 26 H 10/31/20 08:00 BP 104/80 10/31/20 08:00 Pulse Ox 95 10/31/20 08:00 Weight - Most Recent: 144 lb 11.206 oz I&O - Last 24 Hours: Intake & Output 10/30/20 10/31/20 10/31/20 22:59 06:59 14:59 Intake Total 350 220 Output Total 475 100 Balance -475 250 220 Lab Results Last 24 Hours: Laboratory Results - last 24 hr 10/31/20 10/31/20 Range/Units 05:30 05:30 WBC 19.9 H (4.5-11.0) K/uL RBC 4.28 L (4.30-5.90) M/uL Hgb 13.4 (12.0-15.0) g/dL Hct 41.8 (40.0-54.0) % MCV 98 (80-98) fL MCH 31 (27-31) pg MCHC 32 (32-36) % Plt Count 229 (150-400) K/uL Neut % (Auto) 90 H (36-66) % Lymph % (Auto) 3 L (24-44) % [place] % (Auto) 7 H (2-6) % Eos % (Auto) 0 L (2-4) % Baso % (Auto) 0 (0-1) % Sodium 137 L (140-148) mmol/L Potassium 4.9 (3.6-5.2) mmol/L Chloride 102 (100-108) mmol/L Carbon Dioxide 22 (21-32) mmol/L Anion Gap 17.9 H (5.0-14.0) mmol/L BUN 43 H (7-18) mg/dL Creatinine 1.4 H (0.8-1.3) mg/dL Est Cr Clr Drug Dosing 35.81 mL/min Estimated GFR (MDRD) 48 L (>60) Glucose 158 H (74-106) mg/dL Calcium 9.2 (8.5-10.1) mg/dL [place] Results Last 24 Hours: Microbiology 10/28/20 19:10 Aerobic Blood Culture - Preliminary Blood - Arm, Left NO GROWTH AFTER 2 DAYS Anaerobic Blood Culture - Preliminary NO GROWTH AFTER 2 DAYS 10/28/20 19:00 Aerobic Blood Culture - Preliminary Blood - Arm, Left NO GROWTH AFTER 2 DAYS Anaerobic Blood Culture - Preliminary NO GROWTH AFTER 2 DAYS Med Orders - Current: Current Medications Acetaminophen (Tylenol) 650 mg PO Q4H PRN PRN Reason: Pain (Mild 1-3)/fever Albuterol (Proventil Neb Soln) 2.5 mg NEB Q2H PRN PRN Reason: Shortness Of Breath/wheezing Albuterol/Ipratropium (Duoneb 3.0-0.5 Mg/3 Ml) 3 ml NEB Q2H PRN PRN Reason: Shortness Of Breath/wheezing Last Admin: 10/30/20 23:25 Dose: 3 ml Documented by: Aspirin (Ecotrin) 325 mg PO DAILY [facility] Last Admin: 10/31/20 07:59 Dose: 325 mg Documented by: Diltiazem HCl (Cardizem) 30 mg PO Q6H [facility] Enoxaparin Sodium (Lovenox) 40 mg SUBCUT Q24H [facility] Last Admin: 10/30/20 16:39 Dose: 40 mg Documented by: Ceftriaxone Sodium 1 gm/ (Sodium Chloride) 50 mls @ 100 mls/hr IV Q24H [facility] Last Admin: 10/30/20 19:49 Dose: 100 mls/hr Documented by: Doxycycline Hyclate 100 mg/ (Sodium Chloride) 100 mls @ 100 mls/hr IV Q12H [facility] Last Admin: 10/30/20 22:18 Dose: 100 mls/hr Documented by: Lactobacillus Rhamnosus (Culturelle) 1 cap PO BID [facility] Last Admin: 10/31/20 07:59 Dose: 1 cap Documented by: Levothyroxine Sodium (Levothyroxine) 25 mcg PO ACBREAKFAST [facility] Last Admin: 10/31/20 07:59 Dose: 25 mcg Documented by: Metoprolol Tartrate (Lopressor) 25 mg PO BID [facility] Last Admin: 10/31/20 07:59 Dose: 25 mg Documented by: Morphine Sulfate (Morphine) 2 mg IVPUSH Q2H PRN PRN Reason: Pain (severe 7-10) Last Admin: 10/31/20 00:49 Dose: 2 mg Documented by: Nicotine (Habitrol) 7 mg TRDERM DAILY [facility] Last Admin: 10/31/20 08:00 Dose: 7 mg Documented by: Ondansetron HCl (Zofran Odt) 4 mg PO Q6H PRN PRN Reason: Nausea able to take PO Oxycodone HCl (Oxycodone) 5 mg PO Q4H PRN PRN Reason: Pain (moderate 4-6) Polyethylene Glycol (Miralax) 17 gm PO DAILY PRN PRN Reason: Constipation Last Admin: 10/30/20 21:24 Dose: 17 gm Documented by: Prednisone (Prednisone) 40 mg PO DAILY [facility] Simvastatin (Zocor) 40 mg PO BEDTIME [facility] Last Admin: 10/30/20 20:31 Dose: 40 mg Documented by: Sodium Chloride (Saline Flush) 10 ml FLUSH ASDIRECTED PRN PRN Reason: Keep Vein Open Last Admin: 10/28/20 23:06 Dose: 10 ml Documented by: Discontinued Medications Albuterol/Ipratropium (Duoneb 3.0-0.5 Mg/3 Ml) 3 ml NEB ONETIME ONE Stop: 10/28/20 19:09 Last Admin: 10/28/20 19:25 Dose: 3 ml Documented by: Albuterol/Ipratropium (Duoneb 3.0-0.5 Mg/3 Ml) 3 ml NEB ONETIME ONE Stop: 10/28/20 22:30 Last Admin: 10/28/20 22:32 Dose: 3 ml Documented by: Aspirin (Aspirin) 81 mg PO DAILY [facility] Last Admin: 10/29/20 08:43 Dose: 81 mg Documented by: Aspirin (Aspirin) 243 mg PO ONETIME ONE Stop: 10/29/20 11:01 Last Admin: 10/29/20 10:41 Dose: 243 mg Documented by: Digoxin (Lanoxin) 250 mcg IVPUSH ONETIME ONE Stop: 10/30/20 16:11 Last Admin: 10/30/20 16:27 Dose: 250 mcg Documented by: Furosemide (Lasix) 20 mg IVPUSH ONETIME ONE Stop: 10/29/20 02:40 Last Admin: 10/29/20 02:51 Dose: 20 mg Documented by: Furosemide (Lasix) 40 mg PO DAILY [facility] Last Admin: 10/30/20 08:02 Dose: 40 mg Documented by: Furosemide (Lasix) 40 mg IVPUSH NOW ONE Stop: 10/30/20 16:11 Last Admin: 10/30/20 16:32 Dose: 40 mg Documented by: Ceftriaxone Sodium 1 gm/ (Sodium Chloride) 50 mls @ 100 mls/hr IV ONETIME ONE Stop: 10/28/20 19:58 Last Admin: 10/28/20 20:24 Dose: 100 mls/hr Documented by: Sodium Chloride (Normal Saline) 1,000 mls @ 1,000 mls/hr IV BOLUS ONE; Protocol Stop: 10/28/20 20:58 Last Admin: 10/28/20 20:18 Dose: 1,000 mls/hr Documented by: Vancomycin HCl 1 gm/ Sodium (Chloride) 250 mls @ 167 mls/hr IV STAT ONE Stop: 10/28/20 21:28 Last Admin: 10/28/20 20:52 Dose: 167 mls/hr Documented by: Methylprednisolone Sodium Succinate (Solu-Medrol) 125 mg IVPUSH ONETIME ONE Stop: 10/28/20 22:56 Last Admin: 10/28/20 23:06 Dose: 125 mg Documented by: Methylprednisolone Sodium Succinate (Solu-Medrol) 40 mg IVPUSH Q6H [facility] Last Admin: 10/31/20 03:39 Dose: 40 mg Documented by: Metoprolol Tartrate (Lopressor) 25 mg PO ONETIME ONE Stop: 10/29/20 02:40 Last Admin: 10/29/20 02:50 Dose: 25 mg Documented by: Metoprolol Tartrate (Lopressor) 25 mg PO BID [facility] Last Admin: 10/29/20 10:42 Dose: 25 mg Documented by: Metoprolol Tartrate (Lopressor) 12.5 mg PO BID [facility] Last Admin: 10/30/20 08:03 Dose: 12.5 mg Documented by: Potassium Chloride (Klor-Con M20) 40 meq PO ONETIME ONE Stop: 10/28/20 19:56 Last Admin: 10/28/20 20:17 Dose: 40 meq Documented by: Potassium Chloride (Klor-Con M20) 40 meq PO ONETIME ONE Stop: 10/30/20 08:31 Last Admin: 10/30/20 09:25 Dose: 40 meq Documented by: Potassium Chloride (Klor-Con M20) 40 meq PO ONETIME ONE Stop: 10/30/20 13:01 Last Admin: 10/30/20 14:28 Dose: 40 meq Documented by: Simvastatin (Zocor) 20 mg PO ONETIME ONE Stop: 10/29/20 00:53 Last Admin: 10/29/20 02:24 Dose: Not Given Documented by: Simvastatin (Zocor) 20 mg PO ONETIME ONE Stop: 10/29/20 09:01 Last Admin: 10/29/20 08:43 Dose: 20 mg Documented by: Simvastatin (Zocor) 20 mg PO BEDTIME ONE Stop: 10/29/20 21:01 Last Admin: 10/29/20 20:08 Dose: 20 mg Documented by: - Exam Quality Assessment: Supplemental Oxygen, DVT Prophylaxis General: Alert, Oriented, Cooperative, Mild Distress Lungs: Clear to Auscultation, Normal Respiratory Effort, Decreased Breath Sounds. No: Rales, Rhonchi, Wheezing Cardiovascular: Regular Rate, Regular Rhythm, No Murmurs GI/Abdominal Exam: Soft, Non-Tender, No Organomegaly, No Distention Extremities: Non-Tender, No Pedal Edema Sepsis Event Note - Evaluation Sepsis Screening Result: Sepsis Risk - Focused Exam Vital Signs: Vital Signs Temp Pulse Pulse Resp BP BP Pulse Ox 10/31/20 08:00 125 H 26 H 104/80 95 10/31/20 07:59 124 H 104/67 10/31/20 07:00 96.2 F L 114 H 26 H 104/67 96 10/31/20 06:00 25 H 110/76 92 L 10/31/20 05:00 28 H 132/72 94 L 10/31/20 04:00 96.6 F L 29 H 129/79 94 L 10/31/20 03:00 26 H 114/87 94 L 10/31/20 02:00 19 90 L 10/31/20 01:00 28 H 122/82 91 L 10/31/20 00:00 29 H 111/68 92 L 10/30/20 23:00 96.6 F L 16 114/78 93 L 10/30/20 22:00 25 H 107/76 92 L - Problem List Review Problem List Initiated/Reviewed/Updated: Yes - My Orders Last 24 Hours: My Active Orders 10/30/20 09:00 Aspirin [Ecotrin] 325 mg PO DAILY Metoprolol Tartrate [Lopressor] 25 mg PO BID 10/30/20 16:30 Enoxaparin [Lovenox] 40 mg SUBCUT Q24H 10/30/20 21:00 Simvastatin [Zocor] 40 mg PO BEDTIME 10/31/20 08:00 Echo Comp wo Cont [US] Urgent 10/31/20 10:00 Diltiazem IR [Cardizem] 30 mg PO Q6H 11/01/20 05:00 BASIC METABOLIC PANEL,BMP [CHEM] Timed CBC WITH AUTO DIFF [HEME] Timed 11/01/20 09:00 predniSONE 40 mg PO DAILY - Plan Plan:: ASSESSMENT AND PLAN BILATERAL PNEUMONIA WITH PROBABLE SEPSIS -Blood cultures pending -Antibiotic therapy; ceftriaxone and doxycycline HYPOXIC RESPIRATORY FAILURE-secondary to underlying COPD exacerbation and pulmonary infiltrates, CHF may also be a contributing factor -Supplemental oxygen as needed -Correct and treat underlying problems ATRIAL FIBRILLATION WITH RAPID VENTRICULAR RESPONSE-prior history of A. fib -Monitor in ICU -Continue metoprolol for rate control -Diltiazem 30 mg p.o. every 6 hours COPD EXACERBATION-secondary to bilateral pneumonia -Nebulizer therapy as needed -Disown 40 mg p.o. daily CONGESTIVE HEART FAILURE-prior history -Echocardiogram when available MAINTENANCE ISSUES -DVT prophylaxis; Lovenox 40 mg subcu daily -GI prophylaxis; not indicated -[place] catheter; not indicated -Nutrition; 2 g sodium diet -Nicotine dependence; nicotine patch CODE STATUS-FULL CODE ADMISSION STATUS-patient will be admitted to inpatient status, expect at least a 2 night hospital stay for evaluation and management of problems as outlined above. At the time of this admission I do not reasonably expected evaluation and management of this problem will require more than a 96 hour hospital stay. DISPOSITION-anticipate discharge to home after the hospital stay.
[2020-10-31] MEDS: Diltiazem IR 30 MG Tab PO SCH ×3 (10:33→21:19)
[2020-10-31] MEDS: Doxycycline 100 MG in Sodium Chloride 0.9% 100 ML IV SCH ×2 (10:58→23:34)
[2020-10-31] MEDS: Albuterol 0.083% 2.5 MG/3 ML Neb Soln NEB PRN ×2 (11:46→19:41)
[2020-10-31] MEDS ORDERED: Sodium Phosphate,Monobasic/Sodium Phosphate,Dibasic Enema 133 ML Bottle RECTAL PRN (12:00)
[2020-10-31] MEDS ORDERED: Bisacodyl 10 MG Supp RECTAL ONE (12:00)
[2020-10-31] MEDS: predniSONE 20 MG Tab PO SCH (12:15)
[2020-10-31] MEDS: Enoxaparin 40 MG/0.4 ML Syringe SUBCUT SCH (16:14)
[2020-10-31] MEDS: cefTRIAXone 1 GM in Sodium Chloride 0.9% 50 ML IV SCH (19:39)
[2020-10-31] MEDS: Simvastatin 20 MG Tab PO SCH ×2 (19:43→21:12)
[2020-10-31] MEDS: Melatonin 3 MG Tab PO PRN (21:18)
[2020-10-31] MEDS: Albuterol/Ipratropium 3.0-0.5 MG/3 ML Neb Soln NEB PRN (23:50)
[2020-11-01] MEDS: Morphine 2 MG/ML SYRINGE IVPUSH PRN ×4 (01:55→23:32)
[2020-11-01] MEDS: Diltiazem IR 30 MG Tab PO SCH ×4 (04:00→21:21)
[2020-11-01] MEDS: Albuterol/Ipratropium 3.0-0.5 MG/3 ML Neb Soln NEB PRN ×2 (04:53→20:17)
[2020-11-01] MEDS: Levothyroxine 25 MCG Tab PO SCH (08:11)
[2020-11-01] MEDS: Lactobacillus Rhamnosus GG (Probiotic) Cap PO SCH ×2 (08:11→21:21)
[2020-11-01] MEDS: Metoprolol Tartrate 25 MG Tab PO SCH ×2 (08:12→21:21)
[2020-11-01] MEDS: predniSONE 20 MG Tab PO SCH (08:12)
[2020-11-01] MEDS: Aspirin 325 MG Tab.EC PO SCH (08:12)
[2020-11-01] MEDS ORDERED: Furosemide 40 MG/4 ML VIAL IVPUSH ONE (08:25)
[2020-11-01] MEDS ORDERED: predniSONE 20 MG Tab PO SCH (09:00)
[2020-11-01] MEDS: Nicotine 7 MG/24 Hr Patch TRDERM SCH (10:13)
[2020-11-01] MEDS: Doxycycline 100 MG in Sodium Chloride 0.9% 100 ML IV SCH ×2 (10:58→22:27)
[2020-11-01] MEDS: Haloperidol Lactate 5 MG/ML SDV IVPUSH PRN ×5 (11:37→22:34)
[2020-11-01] MEDS: Acetaminophen 325 MG Tab PO PRN (11:39)
--- NOTE | 2020-11-01 14:51 | PCM.PN ---
- General Info Date of Service: 11/01/20 Subjective Update: Mr. Monroy has experienced increased confusion over the last 24 hours with mild agitation. Heart rate control has improved with current management. Vital signs have otherwise been stable and he has remained afebrile. Because of current confusion he is unable to provide a meaningful history concerning recent symptoms or review of systems. - Patient Data Vitals - Most Recent: Last Vital Signs Temp 96.8 F L 11/01/20 12:00 Pulse 99 11/01/20 12:00 Resp 20 11/01/20 12:00 BP 96/59 L 11/01/20 12:00 Pulse Ox 93 L 11/01/20 13:00 Weight - Most Recent: 148 lb 9.6 oz I&O - Last 24 Hours: Intake & Output 10/31/20 11/01/20 11/01/20 22:59 06:59 14:59 Intake Total 250 300 Output Total 145 150 Balance 250 -145 150 Lab Results Last 24 Hours: Laboratory Results - last 24 hr 11/01/20 11/01/20 Range/Units 06:01 06:01 WBC 15.8 H (4.5-11.0) K/uL RBC 3.99 L (4.30-5.90) M/uL Hgb 12.3 (12.0-15.0) g/dL Hct 39.1 L (40.0-54.0) % MCV 98 (80-98) fL MCH 31 (27-31) pg MCHC 32 (32-36) % Plt Count 190 (150-400) K/uL Neut % (Auto) 85 H (36-66) % Lymph % (Auto) 5 L (24-44) % [place] % (Auto) 10 H (2-6) % Eos % (Auto) 0 L (2-4) % Baso % (Auto) 0 (0-1) % Sodium 138 L (140-148) mmol/L Potassium 5.0 (3.6-5.2) mmol/L Chloride 104 (100-108) mmol/L Carbon Dioxide 24 (21-32) mmol/L Anion Gap 15.0 H (5.0-14.0) mmol/L BUN 48 H (7-18) mg/dL Creatinine 1.2 (0.8-1.3) mg/dL Est Cr Clr Drug Dosing 41.97 mL/min Estimated GFR (MDRD) 58 L (>60) Glucose 132 H (74-106) mg/dL Calcium 9.1 (8.5-10.1) mg/dL [place] Results Last 24 Hours: Microbiology 10/28/20 19:00 Aerobic Blood Culture - Preliminary Blood - Arm, Left NO GROWTH AFTER 3 DAYS Anaerobic Blood Culture - Preliminary NO GROWTH AFTER 3 DAYS 10/28/20 19:10 Aerobic Blood Culture - Preliminary Blood - Arm, Left NO GROWTH AFTER 3 DAYS Anaerobic Blood Culture - Preliminary NO GROWTH AFTER 3 DAYS Med Orders - Current: Current Medications Acetaminophen (Tylenol) 650 mg PO Q4H PRN PRN Reason: Pain (Mild 1-3)/fever Last Admin: 11/01/20 11:39 Dose: 650 mg Documented by: Albuterol (Proventil Neb Soln) 2.5 mg NEB Q2H PRN PRN Reason: Shortness Of Breath/wheezing Last Admin: 10/31/20 19:41 Dose: 2.5 mg Documented by: Albuterol/Ipratropium (Duoneb 3.0-0.5 Mg/3 Ml) 3 ml NEB Q2H PRN PRN Reason: Shortness Of Breath/wheezing Last Admin: 11/01/20 04:53 Dose: 3 ml Documented by: Aspirin (Ecotrin) 325 mg PO DAILY [facility] Last Admin: 11/01/20 08:12 Dose: 325 mg Documented by: Diltiazem HCl (Cardizem) 30 mg PO Q6H [facility] Last Admin: 11/01/20 10:19 Dose: 30 mg Documented by: Enoxaparin Sodium (Lovenox) 40 mg SUBCUT Q24H [facility] Last Admin: 10/31/20 16:14 Dose: 40 mg Documented by: Haloperidol Lactate (Haldol) 1 mg IVPUSH Q2H PRN PRN Reason: Agitation Last Admin: 11/01/20 14:21 Dose: 1 mg Documented by: Ceftriaxone Sodium 1 gm/ (Sodium Chloride) 50 mls @ 100 mls/hr IV Q24H [facility] Last Admin: 10/31/20 19:39 Dose: 100 mls/hr Documented by: Doxycycline Hyclate 100 mg/ (Sodium Chloride) 100 mls @ 100 mls/hr IV Q12H [facility] Last Admin: 11/01/20 10:58 Dose: 100 mls/hr Documented by: Lactobacillus Rhamnosus (Culturelle) 1 cap PO BID [facility] Last Admin: 11/01/20 08:11 Dose: 1 cap Documented by: Levothyroxine Sodium (Levothyroxine) 25 mcg PO ACBREAKFAST [facility] Last Admin: 11/01/20 08:11 Dose: 25 mcg Documented by: Melatonin (Melatonin) 9 mg PO BEDTIME PRN PRN Reason: Insomnia Last Admin: 10/31/20 21:18 Dose: 9 mg Documented by: Metoprolol Tartrate (Lopressor) 25 mg PO BID [facility] Last Admin: 11/01/20 08:12 Dose: 25 mg Documented by: Morphine Sulfate (Morphine) 2 mg IVPUSH Q2H PRN PRN Reason: Pain (severe 7-10) Last Admin: 11/01/20 01:55 Dose: 2 mg Documented by: Nicotine (Habitrol) 7 mg TRDERM DAILY [facility] Last Admin: 11/01/20 10:13 Dose: 7 mg Documented by: Ondansetron HCl (Zofran Odt) 4 mg PO Q6H PRN PRN Reason: Nausea able to take PO Oxycodone HCl (Oxycodone) 5 mg PO Q4H PRN PRN Reason: Pain (moderate 4-6) Polyethylene Glycol (Miralax) 17 gm PO DAILY PRN PRN Reason: Constipation Last Admin: 10/30/20 21:24 Dose: 17 gm Documented by: Prednisone (Prednisone) 40 mg PO DAILY [facility] Last Admin: 11/01/20 08:12 Dose: 40 mg Documented by: Simvastatin (Zocor) 40 mg PO BEDTIME [facility] Last Admin: 10/31/20 21:12 Dose: Not Given Documented by: Sodium Biphosphate/Sodium Phosphate (Fleet Enema) 133 ml RECTAL ONETIME PRN PRN Reason: Constipation Sodium Chloride (Saline Flush) 10 ml FLUSH ASDIRECTED PRN PRN Reason: Keep Vein Open Last Admin: 10/28/20 23:06 Dose: 10 ml Documented by: Discontinued Medications Albuterol/Ipratropium (Duoneb 3.0-0.5 Mg/3 Ml) 3 ml NEB ONETIME ONE Stop: 10/28/20 19:09 Last Admin: 10/28/20 19:25 Dose: 3 ml Documented by: Albuterol/Ipratropium (Duoneb 3.0-0.5 Mg/3 Ml) 3 ml NEB ONETIME ONE Stop: 10/28/20 22:30 Last Admin: 10/28/20 22:32 Dose: 3 ml Documented by: Aspirin (Aspirin) 81 mg PO DAILY [facility] Last Admin: 10/29/20 08:43 Dose: 81 mg Documented by: Aspirin (Aspirin) 243 mg PO ONETIME ONE Stop: 10/29/20 11:01 Last Admin: 10/29/20 10:41 Dose: 243 mg Documented by: Bisacodyl (Dulcolax) 10 mg RECTAL ONETIME ONE Stop: 10/31/20 12:01 Last Admin: 10/31/20 12:20 Dose: 10 mg Documented by: Digoxin (Lanoxin) 250 mcg IVPUSH ONETIME ONE Stop: 10/30/20 16:11 Last Admin: 10/30/20 16:27 Dose: 250 mcg Documented by: Furosemide (Lasix) 20 mg IVPUSH ONETIME ONE Stop: 10/29/20 02:40 Last Admin: 10/29/20 02:51 Dose: 20 mg Documented by: Furosemide (Lasix) 40 mg PO DAILY [facility] Last Admin: 10/30/20 08:02 Dose: 40 mg Documented by: Furosemide (Lasix) 40 mg IVPUSH NOW ONE Stop: 10/30/20 16:11 Last Admin: 10/30/20 16:32 Dose: 40 mg Documented by: Furosemide (Lasix) 40 mg IVPUSH NOW ONE Stop: 11/01/20 08:26 Last Admin: 11/01/20 10:19 Dose: 40 mg Documented by: Ceftriaxone Sodium 1 gm/ (Sodium Chloride) 50 mls @ 100 mls/hr IV ONETIME ONE Stop: 10/28/20 19:58 Last Admin: 10/28/20 20:24 Dose: 100 mls/hr Documented by: Sodium Chloride (Normal Saline) 1,000 mls @ 1,000 mls/hr IV BOLUS ONE; Protocol Stop: 10/28/20 20:58 Last Admin: 10/28/20 20:18 Dose: 1,000 mls/hr Documented by: Vancomycin HCl 1 gm/ Sodium (Chloride) 250 mls @ 167 mls/hr IV STAT ONE Stop: 10/28/20 21:28 Last Admin: 10/28/20 20:52 Dose: 167 mls/hr Documented by: Methylprednisolone Sodium Succinate (Solu-Medrol) 125 mg IVPUSH ONETIME ONE Stop: 10/28/20 22:56 Last Admin: 10/28/20 23:06 Dose: 125 mg Documented by: Methylprednisolone Sodium Succinate (Solu-Medrol) 40 mg IVPUSH Q6H [facility] Last Admin: 10/31/20 03:39 Dose: 40 mg Documented by: Metoprolol Tartrate (Lopressor) 25 mg PO ONETIME ONE Stop: 10/29/20 02:40 Last Admin: 10/29/20 02:50 Dose: 25 mg Documented by: Metoprolol Tartrate (Lopressor) 25 mg PO BID [facility] Last Admin: 10/29/20 10:42 Dose: 25 mg Documented by: Metoprolol Tartrate (Lopressor) 12.5 mg PO BID [facility] Last Admin: 10/30/20 08:03 Dose: 12.5 mg Documented by: Potassium Chloride (Klor-Con M20) 40 meq PO ONETIME ONE Stop: 10/28/20 19:56 Last Admin: 10/28/20 20:17 Dose: 40 meq Documented by: Potassium Chloride (Klor-Con M20) 40 meq PO ONETIME ONE Stop: 10/30/20 08:31 Last Admin: 10/30/20 09:25 Dose: 40 meq Documented by: Potassium Chloride (Klor-Con M20) 40 meq PO ONETIME ONE Stop: 10/30/20 13:01 Last Admin: 10/30/20 14:28 Dose: 40 meq Documented by: Prednisone (Prednisone) 40 mg PO DAILY [facility] Simvastatin (Zocor) 20 mg PO ONETIME ONE Stop: 10/29/20 00:53 Last Admin: 10/29/20 02:24 Dose: Not Given Documented by: Simvastatin (Zocor) 20 mg PO ONETIME ONE Stop: 10/29/20 09:01 Last Admin: 10/29/20 08:43 Dose: 20 mg Documented by: Simvastatin (Zocor) 20 mg PO BEDTIME ONE Stop: 10/29/20 21:01 Last Admin: 10/29/20 20:08 Dose: 20 mg Documented by: - Exam Quality Assessment: Supplemental Oxygen, DVT Prophylaxis General: Alert, Mild Distress. No: Oriented, Cooperative Lungs: Clear to Auscultation, Normal Respiratory Effort, Decreased Breath Sounds Cardiovascular: Regular Rate, No Murmurs, Irregular Rhythm GI/Abdominal Exam: Soft, Non-Tender, No Organomegaly, No Distention Extremities: Non-Tender, No Pedal Edema Sepsis Event Note - Evaluation Sepsis Screening Result: Sepsis Risk - Focused Exam Vital Signs: Vital Signs Temp Pulse Pulse Resp BP BP Pulse Ox 11/01/20 13:00 93 L 11/01/20 12:00 96.8 F L 99 20 96/59 L 93 L 11/01/20 10:00 88 22 H 112/69 94 L 11/01/20 08:12 106 H 113/86 11/01/20 08:00 96.8 F L 112 H 20 113/86 92 L 11/01/20 04:47 98 20 126/64 96 11/01/20 03:00 97.7 F 118 H 18 122/79 96 - Problem List Review Problem List Initiated/Reviewed/Updated: Yes - My Orders Last 24 Hours: My Active Orders 10/31/20 21:08 Melatonin 9 mg PO BEDTIME PRN 11/01/20 08:00 Echo Comp wo Cont [US] Urgent 11/01/20 11:24 Haloperidol Lactate [Haldol] 1 mg IVPUSH Q2H PRN 11/02/20 05:00 BASIC METABOLIC PANEL,BMP [CHEM] Timed CBC WITH AUTO DIFF [HEME] Timed - Plan Plan:: ASSESSMENT AND PLAN BILATERAL PNEUMONIA WITH PROBABLE SEPSIS -Antibiotic therapy; ceftriaxone and doxycycline HYPOXIC RESPIRATORY FAILURE-secondary to underlying COPD exacerbation and pulmonary infiltrates, CHF may also be a contributing factor -Supplemental oxygen as needed -Correct and treat underlying problems ATRIAL FIBRILLATION WITH RAPID VENTRICULAR RESPONSE-prior history of A. fib, rate control improved with current management -Monitor in ICU -Continue metoprolol for rate control -Diltiazem 30 mg p.o. every 6 hours COPD EXACERBATION-secondary to bilateral pneumonia -Nebulizer therapy as needed -Prednisone 40 mg p.o. daily CONGESTIVE HEART FAILURE-preliminary report an echocardiogram shows decreased left ventricular systolic function with estimated ejection fraction of 25 to 30% and severe mitral regurgitation -IV furosemide daily MAINTENANCE ISSUES -DVT prophylaxis; Lovenox 40 mg subcu daily -GI prophylaxis; not indicated -Childress catheter; not indicated -Nutrition; 2 g sodium diet -Nicotine dependence; nicotine patch CODE STATUS-FULL CODE ADMISSION STATUS-patient will be admitted to inpatient status, expect at least a 2 night hospital stay for evaluation and management of problems as outlined above. At the time of this admission I do not reasonably expected evaluation and management of this problem will require more than a 96 hour hospital stay. DISPOSITION-anticipate discharge to home after the hospital stay.
[2020-11-01] MEDS: Enoxaparin 40 MG/0.4 ML Syringe SUBCUT SCH (16:40)
[2020-11-01] MEDS: cefTRIAXone 1 GM in Sodium Chloride 0.9% 50 ML IV SCH (20:01)
[2020-11-01] MEDS: Simvastatin 20 MG Tab PO SCH (21:22)
[2020-11-01] MEDS: Melatonin 3 MG Tab PO PRN (21:48)
[2020-11-02] MEDS: Haloperidol Lactate 5 MG/ML SDV IVPUSH PRN ×3 (00:37→23:15)
[2020-11-02] MEDS: Morphine 2 MG/ML SYRINGE IVPUSH PRN (03:43)
[2020-11-02] MEDS: Diltiazem IR 30 MG Tab PO SCH (03:52)
[2020-11-02] MEDS ORDERED: Haloperidol Lactate 5 MG/ML SDV IVPUSH ONE (05:01)
[2020-11-02] MEDS: Levothyroxine 25 MCG Tab PO SCH (08:05)
[2020-11-02] MEDS: Lactobacillus Rhamnosus GG (Probiotic) Cap PO SCH ×2 (09:07→20:07)
[2020-11-02] MEDS: Aspirin 325 MG Tab.EC PO SCH (09:08)
[2020-11-02] MEDS: predniSONE 20 MG Tab PO SCH (09:08)
[2020-11-02] MEDS: Metoprolol Tartrate 25 MG Tab PO SCH ×2 (09:08→20:06)
[2020-11-02] MEDS: Diltiazem 120 MG Cap.CD PO SCH (09:09)
[2020-11-02] MEDS: Nicotine 7 MG/24 Hr Patch TRDERM SCH (09:13)
[2020-11-02] MEDS: Albuterol/Ipratropium 3.0-0.5 MG/3 ML Neb Soln NEB PRN (10:04)
[2020-11-02] MEDS: Doxycycline 100 MG in Sodium Chloride 0.9% 100 ML IV SCH (10:05)
[2020-11-02] MEDS ORDERED: Furosemide 40 MG/4 ML VIAL IVPUSH ONE (13:00)
[2020-11-02] MEDS: Divalproex Sodium Delayed-Release 250 MG Tab.CR PO SCH ×2 (13:07→16:25)
--- NOTE | 2020-11-02 13:07 | PCM.PN ---
- General Info Date of Service: 11/02/20 Subjective Update: Mr. Monroy has remained fairly confused and intermittently agitated. Respiratory status seems to be fairly stable. Heart rate has come under better control with current management and blood pressure has been within desired range. He is unable to provide a meaningful history concerning recent symptoms or review of systems because of his confusion. - Patient Data Vitals - Most Recent: Last Vital Signs Temp 97 F 11/02/20 00:00 Pulse 104 H 11/02/20 10:00 Resp 102 H 11/02/20 10:00 BP 111/49 L 11/02/20 10:00 Pulse Ox 93 L 11/02/20 10:00 Weight - Most Recent: 148 lb 9.6 oz I&O - Last 24 Hours: Intake & Output 11/01/20 11/02/20 11/02/20 22:59 06:59 14:59 Intake Total 260 640 260 Output Total 550 100 Balance -290 640 160 Lab Results Last 24 Hours: Laboratory Results - last 24 hr 11/02/20 11/02/20 Range/Units 05:00 05:13 WBC 13.1 H (4.5-11.0) K/uL RBC 3.93 L (4.30-5.90) M/uL Hgb 12.0 (12.0-15.0) g/dL Hct 39.0 L (40.0-54.0) % MCV 99 H (80-98) fL MCH 31 (27-31) pg MCHC 31 L (32-36) % Plt Count 190 (150-400) K/uL Neut % (Auto) 79 H (36-66) % Lymph % (Auto) 9 L (24-44) % [place] % (Auto) 13 H (2-6) % Eos % (Auto) 0 L (2-4) % Baso % (Auto) 0 (0-1) % Sodium 141 (140-148) mmol/L Potassium 5.2 (3.6-5.2) mmol/L Chloride 103 (100-108) mmol/L Carbon Dioxide 29 (21-32) mmol/L Anion Gap 9.3 (5.0-14.0) mmol/L BUN 50 H (7-18) mg/dL Creatinine 1.3 (0.8-1.3) mg/dL Est Cr Clr Drug Dosing 38.74 mL/min Estimated GFR (MDRD) 52 L (>60) Glucose 140 H (74-106) mg/dL Calcium 8.8 (8.5-10.1) mg/dL [place] Results Last 24 Hours: Microbiology 10/28/20 19:00 Aerobic Blood Culture - Preliminary Blood - Arm, Left NO GROWTH AFTER 4 DAYS Anaerobic Blood Culture - Preliminary NO GROWTH AFTER 4 DAYS 10/28/20 19:10 Aerobic Blood Culture - Preliminary Blood - Arm, Left NO GROWTH AFTER 4 DAYS Anaerobic Blood Culture - Preliminary NO GROWTH AFTER 4 DAYS Med Orders - Current: Current Medications Acetaminophen (Tylenol) 650 mg PO Q4H PRN PRN Reason: Pain (Mild 1-3)/fever Last Admin: 11/01/20 11:39 Dose: 650 mg Documented by: Albuterol (Proventil Neb Soln) 2.5 mg NEB Q2H PRN PRN Reason: Shortness Of Breath/wheezing Last Admin: 10/31/20 19:41 Dose: 2.5 mg Documented by: Albuterol/Ipratropium (Duoneb 3.0-0.5 Mg/3 Ml) 3 ml NEB QIDRT [facility] Apixaban (Eliquis) 5 mg PO BID [facility] Aspirin (Ecotrin) 325 mg PO DAILY [facility] Last Admin: 11/02/20 09:08 Dose: 325 mg Documented by: Diltiazem HCl (Cardizem Cd) 120 mg PO DAILY [facility] Last Admin: 11/02/20 09:09 Dose: 120 mg Documented by: Divalproex Sodium ([facility] S[facility]) [facility] Enoxaparin Sodium (Lovenox) 40 mg SUBCUT Q24H [facility] Last Admin: 11/01/20 16:40 Dose: 40 mg Documented by: Haloperidol Lactate (Haldol) 1 mg IVPUSH Q2H PRN PRN Reason: Agitation Last Admin: 11/02/20 00:37 Dose: 1 mg Documented by: Ceftriaxone Sodium 1 gm/ (Sodium Chloride) 50 mls @ 100 mls/hr IV Q24H [facility] Last Admin: 11/01/20 20:01 Dose: 100 mls/hr Documented by: Doxycycline Hyclate 100 mg/ (Sodium Chloride) 100 mls @ 100 mls/hr IV Q12H [facility] Last Admin: 11/02/20 10:05 Dose: 100 mls/hr Documented by: Lactobacillus Rhamnosus (Culturelle) 1 cap PO BID [facility] Last Admin: 11/02/20 09:07 Dose: 1 cap Documented by: Levothyroxine Sodium (Levothyroxine) 25 mcg PO ACBREAKFAST [facility] Last Admin: 11/02/20 08:05 Dose: 25 mcg Documented by: Lisinopril (Prinivil) 2.5 mg PO DAILY [facility] Melatonin (Melatonin) 9 mg PO BEDTIME PRN PRN Reason: Insomnia Last Admin: 11/01/20 21:48 Dose: 9 mg Documented by: Metoprolol Tartrate (Lopressor) 25 mg PO BID [facility] Last Admin: 11/02/20 09:08 Dose: 25 mg Documented by: Nicotine (Habitrol) 7 mg TRDERM DAILY [facility] Last Admin: 11/02/20 09:13 Dose: 7 mg Documented by: Ondansetron HCl (Zofran Odt) 4 mg PO Q6H PRN PRN Reason: Nausea able to take PO Oxycodone HCl (Oxycodone) 5 mg PO Q4H PRN PRN Reason: Pain (moderate 4-6) Polyethylene Glycol (Miralax) 17 gm PO DAILY PRN PRN Reason: Constipation Last Admin: 10/30/20 21:24 Dose: 17 gm Documented by: Simvastatin (Zocor) 40 mg PO BEDTIME [facility] Last Admin: 11/01/20 21:22 Dose: 40 mg Documented by: Sodium Biphosphate/Sodium Phosphate (Fleet Enema) 133 ml RECTAL ONETIME PRN PRN Reason: Constipation Sodium Chloride (Saline Flush) 10 ml FLUSH ASDIRECTED PRN PRN Reason: Keep Vein Open Last Admin: 10/28/20 23:06 Dose: 10 ml Documented by: Discontinued Medications Albuterol/Ipratropium (Duoneb 3.0-0.5 Mg/3 Ml) 3 ml NEB ONETIME ONE Stop: 10/28/20 19:09 Last Admin: 10/28/20 19:25 Dose: 3 ml Documented by: Albuterol/Ipratropium (Duoneb 3.0-0.5 Mg/3 Ml) 3 ml NEB ONETIME ONE Stop: 10/28/20 22:30 Last Admin: 10/28/20 22:32 Dose: 3 ml Documented by: Albuterol/Ipratropium (Duoneb 3.0-0.5 Mg/3 Ml) 3 ml NEB Q2H PRN PRN Reason: Shortness Of Breath/wheezing Last Admin: 11/02/20 10:04 Dose: 3 ml Documented by: Aspirin (Aspirin) 81 mg PO DAILY [facility] Last Admin: 10/29/20 08:43 Dose: 81 mg Documented by: Aspirin (Aspirin) 243 mg PO ONETIME ONE Stop: 10/29/20 11:01 Last Admin: 10/29/20 10:41 Dose: 243 mg Documented by: Bisacodyl (Dulcolax) 10 mg RECTAL ONETIME ONE Stop: 10/31/20 12:01 Last Admin: 10/31/20 12:20 Dose: 10 mg Documented by: Digoxin (Lanoxin) 250 mcg IVPUSH ONETIME ONE Stop: 10/30/20 16:11 Last Admin: 10/30/20 16:27 Dose: 250 mcg Documented by: Diltiazem HCl (Cardizem) 30 mg PO Q6H [facility] Stop: 11/02/20 08:00 Last Admin: 11/02/20 03:52 Dose: 30 mg Documented by: Furosemide (Lasix) 20 mg IVPUSH ONETIME ONE Stop: 10/29/20 02:40 Last Admin: 10/29/20 02:51 Dose: 20 mg Documented by: Furosemide (Lasix) 40 mg PO DAILY [facility] Last Admin: 10/30/20 08:02 Dose: 40 mg Documented by: Furosemide (Lasix) 40 mg IVPUSH NOW ONE Stop: 10/30/20 16:11 Last Admin: 10/30/20 16:32 Dose: 40 mg Documented by: Furosemide (Lasix) 40 mg IVPUSH NOW ONE Stop: 11/01/20 08:26 Last Admin: 11/01/20 10:19 Dose: 40 mg Documented by: Furosemide (Lasix) 40 mg IVPUSH NOW ONE Stop: 11/02/20 13:01 Haloperidol Lactate (Haldol) 2 mg IVPUSH ONETIME ONE Stop: 11/02/20 05:02 Last Admin: 11/02/20 04:50 Dose: 2 mg Documented by: Ceftriaxone Sodium 1 gm/ (Sodium Chloride) 50 mls @ 100 mls/hr IV ONETIME ONE Stop: 10/28/20 19:58 Last Admin: 10/28/20 20:24 Dose: 100 mls/hr Documented by: Sodium Chloride (Normal Saline) 1,000 mls @ 1,000 mls/hr IV BOLUS ONE; Protocol Stop: 10/28/20 20:58 Last Admin: 10/28/20 20:18 Dose: 1,000 mls/hr Documented by: Vancomycin HCl 1 gm/ Sodium (Chloride) 250 mls @ 167 mls/hr IV STAT ONE Stop: 10/28/20 21:28 Last Admin: 10/28/20 20:52 Dose: 167 mls/hr Documented by: Methylprednisolone Sodium Succinate (Solu-Medrol) 125 mg IVPUSH ONETIME ONE Stop: 10/28/20 22:56 Last Admin: 10/28/20 23:06 Dose: 125 mg Documented by: Methylprednisolone Sodium Succinate (Solu-Medrol) 40 mg IVPUSH Q6H [facility] Last Admin: 10/31/20 03:39 Dose: 40 mg Documented by: Metoprolol Tartrate (Lopressor) 25 mg PO ONETIME ONE Stop: 10/29/20 02:40 Last Admin: 10/29/20 02:50 Dose: 25 mg Documented by: Metoprolol Tartrate (Lopressor) 25 mg PO BID [facility] Last Admin: 10/29/20 10:42 Dose: 25 mg Documented by: Metoprolol Tartrate (Lopressor) 12.5 mg PO BID [facility] Last Admin: 10/30/20 08:03 Dose: 12.5 mg Documented by: Morphine Sulfate (Morphine) 2 mg IVPUSH Q2H PRN PRN Reason: Pain (severe 7-10) Last Admin: 11/02/20 03:43 Dose: 2 mg Documented by: Potassium Chloride (Klor-Con M20) 40 meq PO ONETIME ONE Stop: 10/28/20 19:56 Last Admin: 10/28/20 20:17 Dose: 40 meq Documented by: Potassium Chloride (Klor-Con M20) 40 meq PO ONETIME ONE Stop: 10/30/20 08:31 Last Admin: 10/30/20 09:25 Dose: 40 meq Documented by: Potassium Chloride (Klor-Con M20) 40 meq PO ONETIME ONE Stop: 10/30/20 13:01 Last Admin: 10/30/20 14:28 Dose: 40 meq Documented by: Prednisone (Prednisone) 40 mg PO DAILY [facility] Prednisone (Prednisone) 40 mg PO DAILY [facility] Last Admin: 11/02/20 09:08 Dose: 40 mg Documented by: Simvastatin (Zocor) 20 mg PO ONETIME ONE Stop: 10/29/20 00:53 Last Admin: 10/29/20 02:24 Dose: Not Given Documented by: Simvastatin (Zocor) 20 mg PO ONETIME ONE Stop: 10/29/20 09:01 Last Admin: 10/29/20 08:43 Dose: 20 mg Documented by: Simvastatin (Zocor) 20 mg PO BEDTIME ONE Stop: 10/29/20 21:01 Last Admin: 10/29/20 20:08 Dose: 20 mg Documented by: - Exam Quality Assessment: Supplemental Oxygen, DVT Prophylaxis General: Alert, Mild Distress. No: Oriented, Cooperative Lungs: Clear to Auscultation, Normal Respiratory Effort Cardiovascular: Regular Rate, Regular Rhythm, No Murmurs GI/Abdominal Exam: Soft, Non-Tender, No Organomegaly, No Distention Extremities: Non-Tender, No Pedal Edema Sepsis Event Note - Evaluation Sepsis Screening Result: Sepsis Risk - Focused Exam Vital Signs: Vital Signs Pulse Pulse Resp BP BP Pulse Ox 11/02/20 10:00 104 H 102 H 111/49 L 93 L 11/02/20 09:09 114 H 133/76 11/02/20 09:08 114 H 133/76 11/02/20 08:00 19 133/76 92 L 11/02/20 06:00 16 119/88 93 L 11/02/20 04:00 93 H 123/80 90 L 11/02/20 02:00 13 94 L - Problem List Review Problem List Initiated/Reviewed/Updated: Yes - My Orders Last 24 Hours: My Active Orders 11/02/20 09:00 Diltiazem [Cardizem CD] 120 mg PO DAILY 11/02/20 12:50 Divalproex Sodium 250 mg PO BIDMEALS 11/02/20 16:00 Albuterol/Ipratropium [DuoNeb 3.0-0.5 MG/3 ML] 3 ml NEB QID 11/02/20 21:00 Apixaban [Eliquis] 5 mg PO BID 11/03/20 05:00 BASIC METABOLIC PANEL,BMP [CHEM] Timed CBC WITH AUTO DIFF [HEME] Timed 11/03/20 09:00 lisinopriL [Prinivil] 2.5 mg PO DAILY - Plan Plan:: ASSESSMENT AND PLAN BILATERAL PNEUMONIA WITH PROBABLE SEPSIS-stable with current management -Discontinue IV ceftriaxone and doxycycline -Oral doxycycline HYPOXIC RESPIRATORY FAILURE-secondary to underlying COPD exacerbation and pulmonary infiltrates, CHF may also be a contributing factor -Supplemental oxygen as needed -Correct and treat underlying problems ATRIAL FIBRILLATION WITH RAPID VENTRICULAR RESPONSE-prior history of A. fib, rate control improved with current management. [id number]-GOTd score of 5 -Monitor in ICU -Continue metoprolol for rate control -Diltiazem CD 120 milligrams p.o. daily -Eliquis 5 mg p.o. twice daily COPD EXACERBATION-secondary to bilateral pneumonia -Nebulizer therapy as needed -Discontinue prednisone 40 mg p.o. daily CONGESTIVE HEART FAILURE-preliminary report an echocardiogram shows decreased left ventricular systolic function with estimated ejection fraction of 25 to 30% and severe mitral regurgitation -IV furosemide daily -Continue current beta-shasha -Start RALF inhibitor therapy lisinopril 2.5 mg p.o. daily MAINTENANCE ISSUES -DVT prophylaxis; Lovenox 40 mg subcu daily -GI prophylaxis; not indicated -Childress catheter; not indicated -Nutrition; 2 g sodium diet -Nicotine dependence; nicotine patch CODE STATUS-FULL CODE ADMISSION STATUS-patient will be admitted to inpatient status, expect at least a 2 night hospital stay for evaluation and management of problems as outlined above. At the time of this admission I do not reasonably expected evaluation and management of this problem will require more than a 96 hour hospital stay. DISPOSITION-anticipate discharge to home after the hospital stay.
[2020-11-02] MEDS: Albuterol/Ipratropium 3.0-0.5 MG/3 ML Neb Soln NEB SCH ×2 (14:44→20:07)
[2020-11-02] MEDS: Doxycycline 100 MG Cap PO SCH (20:06)
[2020-11-02] MEDS: Apixaban 5 MG Tab PO SCH (20:06)
[2020-11-02] MEDS: Simvastatin 20 MG Tab PO SCH (20:06)
[2020-11-02] MEDS: Melatonin 3 MG Tab PO PRN (20:06)
[2020-11-03] MEDS: Haloperidol Lactate 5 MG/ML SDV IVPUSH PRN ×6 (01:17→23:04)
[2020-11-03] MEDS: Albuterol/Ipratropium 3.0-0.5 MG/3 ML Neb Soln NEB SCH ×4 (07:02→20:04)
[2020-11-03] MEDS: Divalproex Sodium Delayed-Release 250 MG Tab.CR PO SCH ×2 (08:19→16:10)
[2020-11-03] MEDS: Levothyroxine 25 MCG Tab PO SCH (08:19)
[2020-11-03] MEDS: Metoprolol Tartrate 25 MG Tab PO SCH (08:22)
[2020-11-03] MEDS: Lisinopril 2.5 MG Tab PO SCH (08:25)
[2020-11-03] MEDS: Aspirin 325 MG Tab.EC PO SCH (08:26)
[2020-11-03] MEDS: Doxycycline 100 MG Cap PO SCH ×2 (08:26→20:12)
[2020-11-03] MEDS: Apixaban 5 MG Tab PO SCH ×2 (08:26→20:10)
[2020-11-03] MEDS: Diltiazem 120 MG Cap.CD PO SCH (08:27)
[2020-11-03] MEDS: Lactobacillus Rhamnosus GG (Probiotic) Cap PO SCH ×2 (08:27→20:12)
[2020-11-03] MEDS: Nicotine 7 MG/24 Hr Patch TRDERM SCH (08:28)
[2020-11-03] MEDS: oxyCODONE 5 MG Tab PO PRN ×3 (08:53→20:11)
[2020-11-03] MEDS ORDERED: Amiodarone 150 MG/3 ML SDV IVPUSH ONE (10:00)
--- NOTE | 2020-11-03 11:56 | PCM.PN ---
- General Info Date of Service: 11/03/20 Subjective Update: Mr. Monroy continued to experience confusion and agitation especially at night. He did not sleep at all last night because of agitation, this morning is only mildly confused and reasonable. Continues to experience intermittent heart rate elevation especially with any type of activity. He is unable to provide meaningful history concerning symptoms or review of systems because of his confusion - Patient Data Vitals - Most Recent: Last Vital Signs Temp 96.5 F L 11/03/20 08:00 Pulse 90 11/03/20 10:39 Resp 20 11/03/20 10:15 BP 92/46 L 11/03/20 10:15 Pulse Ox 94 L 11/03/20 10:15 Weight - Most Recent: 148 lb 9.6 oz I&O - Last 24 Hours: Intake & Output 11/02/20 11/03/20 11/03/20 22:59 06:59 14:59 Intake Total 830 200 560 Output Total 950 400 525 Balance -120 -200 35 Lab Results Last 24 Hours: Laboratory Results - last 24 hr 11/03/20 11/03/20 Range/Units 03:52 03:52 WBC 11.4 H (4.5-11.0) K/uL RBC 3.48 L (4.30-5.90) M/uL Hgb 10.9 L (12.0-15.0) g/dL Hct 34.4 L (40.0-54.0) % MCV 99 H (80-98) fL MCH 31 (27-31) pg MCHC 32 (32-36) % Plt Count 165 (150-400) K/uL Neut % (Auto) 80 H (36-66) % Lymph % (Auto) 9 L (24-44) % C[place]ay % (Auto) 11 H (2-6) % Eos % (Auto) 0 L (2-4) % Baso % (Auto) 0 (0-1) % Sodium 142 (140-148) mmol/L Potassium 4.5 (3.6-5.2) mmol/L Chloride 106 (100-108) mmol/L Carbon Dioxide 28 (21-32) mmol/L Anion Gap 7.9 (5.0-14.0) mmol/L BUN 47 H (7-18) mg/dL Creatinine 1.2 (0.8-1.3) mg/dL Est Cr Clr Drug Dosing 41.97 mL/min Estimated GFR (MDRD) 58 L (>60) Glucose 117 H (74-106) mg/dL Calcium 8.4 L (8.5-10.1) mg/dL [place] Results Last 24 Hours: Microbiology 10/28/20 19:10 Aerobic Blood Culture - Final Blood - Arm, Left NO GROWTH AFTER 5 DAYS Anaerobic Blood Culture - Final NO GROWTH AFTER 5 DAYS 10/28/20 19:00 Aerobic Blood Culture - Final Blood - Arm, Left NO GROWTH AFTER 5 DAYS Anaerobic Blood Culture - Final NO GROWTH AFTER 5 DAYS Med Orders - Current: Current Medications Acetaminophen (Tylenol) 650 mg PO Q4H PRN PRN Reason: Pain (Mild 1-3)/fever Last Admin: 11/01/20 11:39 Dose: 650 mg Documented by: Albuterol (Proventil Neb Soln) 2.5 mg NEB Q2H PRN PRN Reason: Shortness Of Breath/wheezing Last Admin: 10/31/20 19:41 Dose: 2.5 mg Documented by: Albuterol/Ipratropium (Duoneb 3.0-0.5 Mg/3 Ml) 3 ml NEB QIDRT [facility] Last Admin: 11/03/20 10:39 Dose: 3 ml Documented by: Apixaban (Eliquis) 5 mg PO BID [facility] Last Admin: 11/03/20 08:26 Dose: 5 mg Documented by: Aspirin (Ecotrin) 325 mg PO DAILY [facility] Last Admin: 11/03/20 08:26 Dose: 325 mg Documented by: Divalproex Sodium (Divalproex Sodium) 250 mg PO BIDMEALS [facility] Last Admin: 11/03/20 08:19 Dose: 250 mg Documented by: Doxycycline Hyclate (Vibramycin) 100 mg PO Q12H [facility] Last Admin: 11/03/20 08:26 Dose: 100 mg Documented by: Haloperidol Lactate (Haldol) 2 mg IVPUSH Q2H PRN PRN Reason: Agitation Last Admin: 11/03/20 09:48 Dose: 2 mg Documented by: Amiodarone HCl 450 mg/ (Dextrose/Water) 250 mls @ 33.333 mls/hr IV ASDIRECTED [facility]; Protocol Last Admin: 11/03/20 10:14 Dose: 1 mg/min, 33.333 mls/hr Documented by: Lactobacillus Rhamnosus (Culturelle) 1 cap PO BID [facility] Last Admin: 11/03/20 08:27 Dose: 1 cap Documented by: Levothyroxine Sodium (Levothyroxine) 25 mcg PO ACBREAKFAST [facility] Last Admin: 11/03/20 08:19 Dose: 25 mcg Documented by: Lisinopril (Prinivil) 2.5 mg PO DAILY [facility] Last Admin: 11/03/20 08:25 Dose: 2.5 mg Documented by: Melatonin (Melatonin) 9 mg PO BEDTIME PRN PRN Reason: Insomnia Last Admin: 11/02/20 20:06 Dose: 9 mg Documented by: Nicotine (Habitrol) 7 mg TRDERM DAILY [facility] Last Admin: 11/03/20 08:28 Dose: 7 mg Documented by: Ondansetron HCl (Zofran Odt) 4 mg PO Q6H PRN PRN Reason: Nausea able to take PO Oxycodone HCl (Oxycodone) 5 mg PO Q4H PRN PRN Reason: Pain (moderate 4-6) Last Admin: 11/03/20 08:53 Dose: 5 mg Documented by: Polyethylene Glycol (Miralax) 17 gm PO DAILY PRN PRN Reason: Constipation Last Admin: 10/30/20 21:24 Dose: 17 gm Documented by: Simvastatin (Zocor) 40 mg PO BEDTIME [facility] Last Admin: 11/02/20 20:06 Dose: 40 mg Documented by: Sodium Biphosphate/Sodium Phosphate (Fleet Enema) 133 ml RECTAL ONETIME PRN PRN Reason: Constipation Sodium Chloride (Saline Flush) 10 ml FLUSH ASDIRECTED PRN PRN Reason: Keep Vein Open Last Admin: 10/28/20 23:06 Dose: 10 ml Documented by: Discontinued Medications Albuterol/Ipratropium (Duoneb 3.0-0.5 Mg/3 Ml) 3 ml NEB ONETIME ONE Stop: 10/28/20 19:09 Last Admin: 10/28/20 19:25 Dose: 3 ml Documented by: Albuterol/Ipratropium (Duoneb 3.0-0.5 Mg/3 Ml) 3 ml NEB ONETIME ONE Stop: 10/28/20 22:30 Last Admin: 10/28/20 22:32 Dose: 3 ml Documented by: Albuterol/Ipratropium (Duoneb 3.0-0.5 Mg/3 Ml) 3 ml NEB Q2H PRN PRN Reason: Shortness Of Breath/wheezing Last Admin: 11/02/20 10:04 Dose: 3 ml Documented by: Amiodarone HCl (Cordarone) 150 mg IVPUSH ONETIME ONE Stop: 11/03/20 10:01 Last Admin: 11/03/20 10:11 Dose: 150 mg Documented by: Aspirin (Aspirin) 81 mg PO DAILY [facility] Last Admin: 10/29/20 08:43 Dose: 81 mg Documented by: Aspirin (Aspirin) 243 mg PO ONETIME ONE Stop: 10/29/20 11:01 Last Admin: 10/29/20 10:41 Dose: 243 mg Documented by: Bisacodyl (Dulcolax) 10 mg RECTAL ONETIME ONE Stop: 10/31/20 12:01 Last Admin: 10/31/20 12:20 Dose: 10 mg Documented by: Digoxin (Lanoxin) 250 mcg IVPUSH ONETIME ONE Stop: 10/30/20 16:11 Last Admin: 10/30/20 16:27 Dose: 250 mcg Documented by: Diltiazem HCl (Cardizem) 30 mg PO Q6H [facility] Stop: 11/02/20 08:00 Last Admin: 11/02/20 03:52 Dose: 30 mg Documented by: Diltiazem HCl (Cardizem Cd) 120 mg PO DAILY [facility] Last Admin: 11/03/20 08:27 Dose: 120 mg Documented by: Enoxaparin Sodium (Lovenox) 40 mg SUBCUT Q24H [facility] Last Admin: 11/01/20 16:40 Dose: 40 mg Documented by: Furosemide (Lasix) 20 mg IVPUSH ONETIME ONE Stop: 10/29/20 02:40 Last Admin: 10/29/20 02:51 Dose: 20 mg Documented by: Furosemide (Lasix) 40 mg PO DAILY [facility] Last Admin: 10/30/20 08:02 Dose: 40 mg Documented by: Furosemide (Lasix) 40 mg IVPUSH NOW ONE Stop: 10/30/20 16:11 Last Admin: 10/30/20 16:32 Dose: 40 mg Documented by: Furosemide (Lasix) 40 mg IVPUSH NOW ONE Stop: 11/01/20 08:26 Last Admin: 11/01/20 10:19 Dose: 40 mg Documented by: Furosemide (Lasix) 40 mg IVPUSH NOW ONE Stop: 11/02/20 13:01 Last Admin: 11/02/20 13:15 Dose: 40 mg Documented by: Haloperidol Lactate (Haldol) 1 mg IVPUSH Q2H PRN PRN Reason: Agitation Last Admin: 11/03/20 03:21 Dose: 1 mg Documented by: Haloperidol Lactate (Haldol) 2 mg IVPUSH ONETIME ONE Stop: 11/02/20 05:02 Last Admin: 11/02/20 04:50 Dose: 2 mg Documented by: Ceftriaxone Sodium 1 gm/ (Sodium Chloride) 50 mls @ 100 mls/hr IV ONETIME ONE Stop: 10/28/20 19:58 Last Admin: 10/28/20 20:24 Dose: 100 mls/hr Documented by: Sodium Chloride (Normal Saline) 1,000 mls @ 1,000 mls/hr IV BOLUS ONE; Protocol Stop: 10/28/20 20:58 Last Admin: 10/28/20 20:18 Dose: 1,000 mls/hr Documented by: Vancomycin HCl 1 gm/ Sodium (Chloride) 250 mls @ 167 mls/hr IV STAT ONE Stop: 10/28/20 21:28 Last Admin: 10/28/20 20:52 Dose: 167 mls/hr Documented by: Ceftriaxone Sodium 1 gm/ (Sodium Chloride) 50 mls @ 100 mls/hr IV Q24H [facility] Last Admin: 11/01/20 20:01 Dose: 100 mls/hr Documented by: Doxycycline Hyclate 100 mg/ (Sodium Chloride) 100 mls @ 100 mls/hr IV Q12H [facility] Last Admin: 11/02/20 10:05 Dose: 100 mls/hr Documented by: Methylprednisolone Sodium Succinate (Solu-Medrol) 125 mg IVPUSH ONETIME ONE Stop: 10/28/20 22:56 Last Admin: 10/28/20 23:06 Dose: 125 mg Documented by: Methylprednisolone Sodium Succinate (Solu-Medrol) 40 mg IVPUSH Q6H [facility] Last Admin: 10/31/20 03:39 Dose: 40 mg Documented by: Metoprolol Tartrate (Lopressor) 25 mg PO ONETIME ONE Stop: 10/29/20 02:40 Last Admin: 10/29/20 02:50 Dose: 25 mg Documented by: Metoprolol Tartrate (Lopressor) 25 mg PO BID [facility] Last Admin: 10/29/20 10:42 Dose: 25 mg Documented by: Metoprolol Tartrate (Lopressor) 12.5 mg PO BID [facility] Last Admin: 10/30/20 08:03 Dose: 12.5 mg Documented by: Metoprolol Tartrate (Lopressor) 25 mg PO BID [facility] Last Admin: 11/03/20 08:22 Dose: 25 mg Documented by: Morphine Sulfate (Morphine) 2 mg IVPUSH Q2H PRN PRN Reason: Pain (severe 7-10) Last Admin: 11/02/20 03:43 Dose: 2 mg Documented by: Potassium Chloride (Klor-Con M20) 40 meq PO ONETIME ONE Stop: 10/28/20 19:56 Last Admin: 10/28/20 20:17 Dose: 40 meq Documented by: Potassium Chloride (Klor-Con M20) 40 meq PO ONETIME ONE Stop: 10/30/20 08:31 Last Admin: 10/30/20 09:25 Dose: 40 meq Documented by: Potassium Chloride (Klor-Con M20) 40 meq PO ONETIME ONE Stop: 10/30/20 13:01 Last Admin: 10/30/20 14:28 Dose: 40 meq Documented by: Prednisone (Prednisone) 40 mg PO DAILY [facility] Last Admin: 11/03/20 08:24 Dose: 40 mg Documented by: Prednisone (Prednisone) 40 mg PO DAILY [facility] Last Admin: 11/02/20 09:08 Dose: 40 mg Documented by: Simvastatin (Zocor) 20 mg PO ONETIME ONE Stop: 10/29/20 00:53 Last Admin: 10/29/20 02:24 Dose: Not Given Documented by: Simvastatin (Zocor) 20 mg PO ONETIME ONE Stop: 10/29/20 09:01 Last Admin: 10/29/20 08:43 Dose: 20 mg Documented by: Simvastatin (Zocor) 20 mg PO BEDTIME ONE Stop: 10/29/20 21:01 Last Admin: 10/29/20 20:08 Dose: 20 mg Documented by: - Exam Quality Assessment: Supplemental Oxygen, DVT Prophylaxis General: Alert, Cooperative, Mild Distress. No: Oriented Lungs: Clear to Auscultation, Normal Respiratory Effort, Decreased Breath Sounds Cardiovascular: Regular Rate, Regular Rhythm, No Murmurs GI/Abdominal Exam: Soft, Non-Tender, No Organomegaly, No Distention Extremities: Non-Tender, No Pedal Edema Sepsis Event Note - Evaluation Sepsis Screening Result: No Definite Risk - Focused Exam Vital Signs: Vital Signs Temp Pulse Pulse Resp BP BP Pulse Ox 11/03/20 10:39 90 11/03/20 10:15 117 H 20 92/46 L 94 L 11/03/20 08:27 103 H 110/60 11/03/20 08:25 110/60 11/03/20 08:22 113 H 110/60 11/03/20 08:00 96.5 F L 99 17 110/60 95 11/03/20 07:02 104 H 11/03/20 06:00 96 F L 20 99/62 96 11/03/20 04:45 20 114/58 L 96 11/03/20 04:00 22 H 11/03/20 02:00 24 H 96 11/03/20 00:00 20 100/58 L 98 - Problem List Review Problem List Initiated/Reviewed/Updated: Yes - My Orders Last 24 Hours: My Active Orders 11/02/20 12:50 Divalproex Sodium 250 mg PO BIDMEALS 11/02/20 15:00 Albuterol/Ipratropium [DuoNeb 3.0-0.5 MG/3 ML] 3 ml NEB QIDRT 11/02/20 21:00 Apixaban [Eliquis] 5 mg PO BID Doxycycline [Vibramycin] 100 mg PO Q12H 11/03/20 09:00 lisinopriL [Prinivil] 2.5 mg PO DAILY 11/03/20 09:07 Haloperidol Lactate [Haldol] 2 mg IVPUSH Q2H PRN 11/03/20 10:00 Amiodarone [Cordarone] 450 mg Dextrose 5% in Water 241 ml IV ASDIRECTED 11/04/20 05:00 BASIC METABOLIC PANEL,BMP [CHEM] Timed CBC WITH AUTO DIFF [HEME] Timed - Plan Plan:: ASSESSMENT AND PLAN BILATERAL PNEUMONIA WITH PROBABLE SEPSIS-stable with current management -Oral doxycycline HYPOXIC RESPIRATORY FAILURE-secondary to underlying COPD exacerbation and pulmonary infiltrates, CHF may also be a contributing factor -Supplemental oxygen as needed -Correct and treat underlying problems ATRIAL FIBRILLATION WITH RAPID VENTRICULAR RESPONSE-prior history of A. fib, intermittently elevated especially with fairly minimal activity. [id number] score of 5 -Monitor in ICU -Hold metoprolol and diltiazem -Amiodarone bolus and continuous infusion for 24 hours per protocol -Eliquis 5 mg p.o. twice daily COPD EXACERBATION-secondary to bilateral pneumonia -Nebulizer therapy as needed CONGESTIVE HEART FAILURE-preliminary report an echocardiogram shows decreased left ventricular systolic function with estimated ejection fraction of 25 to 30% and severe mitral regurgitation -IV furosemide daily -Start RALF inhibitor therapy lisinopril 2.5 mg p.o. daily MAINTENANCE ISSUES -DVT prophylaxis; Lovenox 40 mg subcu daily -GI prophylaxis; not indicated -Childress catheter; not indicated -Nutrition; 2 g sodium diet -Nicotine dependence; nicotine patch CODE STATUS-FULL CODE ADMISSION STATUS-patient will be admitted to inpatient status, expect at least a 2 night hospital stay for evaluation and management of problems as outlined above. At the time of this admission I do not reasonably expected evaluation and management of this problem will require more than a 96 hour hospital stay. DISPOSITION-anticipate discharge to home after the hospital stay.
[2020-11-03] MEDS: Melatonin 3 MG Tab PO PRN (20:12)
[2020-11-03] MEDS: Simvastatin 20 MG Tab PO SCH (20:12)
[2020-11-04] MEDS: oxyCODONE 5 MG Tab PO PRN ×2 (02:50→20:19)
[2020-11-04] MEDS: Haloperidol Lactate 5 MG/ML SDV IVPUSH PRN ×5 (03:14→20:29)
[2020-11-04] MEDS: Albuterol/Ipratropium 3.0-0.5 MG/3 ML Neb Soln NEB SCH ×4 (07:01→20:20)
[2020-11-04] MEDS: Levothyroxine 25 MCG Tab PO SCH (07:25)
[2020-11-04] MEDS: Divalproex Sodium Delayed-Release 250 MG Tab.CR PO SCH ×2 (07:26→17:11)
[2020-11-04] MEDS: Polyethylene Glycol 3350 Powder 17 GM Packet PO PRN (07:29)
[2020-11-04] MEDS ORDERED: Metoprolol Tartrate 25 MG Tab PO SCH (09:00)
[2020-11-04] MEDS: Aspirin 325 MG Tab.EC PO SCH (09:26)
[2020-11-04] MEDS: Amiodarone 200 MG Tab PO SCH ×2 (09:26→20:19)
[2020-11-04] MEDS: Lactobacillus Rhamnosus GG (Probiotic) Cap PO SCH ×2 (09:27→20:20)
[2020-11-04] MEDS: Nicotine 7 MG/24 Hr Patch TRDERM SCH (09:27)
[2020-11-04] MEDS: Apixaban 5 MG Tab PO SCH ×2 (09:27→20:19)
[2020-11-04] MEDS: Lisinopril 2.5 MG Tab PO SCH (09:33)
[2020-11-04] MEDS: Doxycycline 100 MG Cap PO SCH ×2 (09:34→20:19)
--- NOTE | 2020-11-04 10:03 | PCM.PN ---
- General Info Date of Service: 11/04/20 Subjective Update: Mr. Monroy has been fairly stable over the last 24 hours with less confusion and agitation. He did sleep well during the night, 7 hours uninterrupted. He has tolerated amiodarone infusion and has experienced improvement in heart rate control. Functional Status: Reports: Tolerating Diet, Urinating - Review of Systems General: Reports: Weakness, Fatigue. Denies: Fever, Chills Pulmonary: Reports: Shortness of Breath. Denies: Pleuritic Chest Pain, Cough, Sputum, Hemoptysis, Wheezing Cardiovascular: Reports: Dyspnea on Exertion. Denies: Chest Pain, Palpitations, Orthopnea, PND, Edema, Lightheadedness Gastrointestinal: Reports: No Symptoms - Patient Data Vitals - Most Recent: Last Vital Signs Temp 96.7 F L 11/04/20 08:00 Pulse 88 11/04/20 09:30 Resp 18 11/04/20 08:00 BP 95/44 L 11/04/20 09:33 Pulse Ox 92 L 11/04/20 08:00 Weight - Most Recent: 148 lb 9.6 oz I&O - Last 24 Hours: Intake & Output 11/03/20 11/04/20 11/04/20 22:59 06:59 14:59 Intake Total 792 425 680 Output Total 225 375 175 Balance 567 50 505 Lab Results Last 24 Hours: Laboratory Results - last 24 hr 11/04/20 11/04/20 Range/Units 04:05 04:05 WBC 11.6 H (4.5-11.0) K/uL RBC 3.17 L (4.30-5.90) M/uL Hgb 9.6 L (12.0-15.0) g/dL Hct 31.6 L (40.0-54.0) % MCV 100 H (80-98) fL MCH 30 (27-31) pg MCHC 30 L (32-36) % Plt Count 158 (150-400) K/uL Neut % (Auto) 81 H (36-66) % Lymph % (Auto) 10 L (24-44) % [place] % (Auto) 9 H (2-6) % Eos % (Auto) 0 L (2-4) % Baso % (Auto) 0 (0-1) % Sodium 143 (140-148) mmol/L Potassium 4.7 (3.6-5.2) mmol/L Chloride 108 (100-108) mmol/L Carbon Dioxide 28 (21-32) mmol/L Anion Gap 11.7 (5.0-14.0) mmol/L BUN 42 H (7-18) mg/dL Creatinine 1.1 (0.8-1.3) mg/dL Est Cr Clr Drug Dosing 45.79 mL/min Estimated GFR (MDRD) > 60 (>60) Glucose 131 H (74-106) mg/dL Calcium 8.5 (8.5-10.1) mg/dL Med Orders - Current: Current Medications Acetaminophen (Tylenol) 650 mg PO Q4H PRN PRN Reason: Pain (Mild 1-3)/fever Last Admin: 11/01/20 11:39 Dose: 650 mg Documented by: Albuterol (Proventil Neb Soln) 2.5 mg NEB Q2H PRN PRN Reason: Shortness Of Breath/wheezing Last Admin: 10/31/20 19:41 Dose: 2.5 mg Documented by: Albuterol/Ipratropium (Duoneb 3.0-0.5 Mg/3 Ml) 3 ml NEB QIDRT [facility] Last Admin: 11/04/20 07:01 Dose: 3 ml Documented by: Amiodarone HCl (Cordarone) 200 mg PO BID [facility] Last Admin: 11/04/20 09:26 Dose: 200 mg Documented by: Apixaban (Eliquis) 5 mg PO BID [facility] Last Admin: 11/04/20 09:27 Dose: 5 mg Documented by: Aspirin (Ecotrin) 325 mg PO DAILY [facility] Last Admin: 11/04/20 09:26 Dose: 325 mg Documented by: Divalproex Sodium (Divalproex Sodium) 250 mg PO BIDMEALS [facility] Last Admin: 11/04/20 07:26 Dose: 250 mg Documented by: Doxycycline Hyclate (Vibramycin) 100 mg PO Q12H [facility] Last Admin: 11/04/20 09:34 Dose: 100 mg Documented by: Haloperidol Lactate (Haldol) 2 mg IVPUSH Q2H PRN PRN Reason: Agitation Last Admin: 11/04/20 07:33 Dose: 2 mg Documented by: Lactobacillus Rhamnosus (Culturelle) 1 cap PO BID [facility] Last Admin: 11/04/20 09:27 Dose: 1 cap Documented by: Levothyroxine Sodium (Levothyroxine) 25 mcg PO ACBREAKFAST [facility] Last Admin: 11/04/20 07:25 Dose: 25 mcg Documented by: Lisinopril (Prinivil) 2.5 mg PO DAILY [facility] Last Admin: 11/04/20 09:33 Dose: 2.5 mg Documented by: Melatonin (Melatonin) 9 mg PO BEDTIME PRN PRN Reason: Insomnia Last Admin: 11/03/20 20:12 Dose: 9 mg Documented by: Metoprolol Tartrate (Lopressor) 12.5 mg PO Q12H [facility] Last Admin: 11/04/20 09:30 Dose: 12.5 mg Documented by: Nicotine (Habitrol) 7 mg TRDERM DAILY [facility] Last Admin: 11/04/20 09:27 Dose: 7 mg Documented by: Ondansetron HCl (Zofran Odt) 4 mg PO Q6H PRN PRN Reason: Nausea able to take PO Oxycodone HCl (Oxycodone) 5 mg PO Q4H PRN PRN Reason: Pain (moderate 4-6) Last Admin: 11/04/20 02:50 Dose: 5 mg Documented by: Polyethylene Glycol (Miralax) 17 gm PO DAILY PRN PRN Reason: Constipation Last Admin: 11/04/20 07:29 Dose: 17 gm Documented by: Simvastatin (Zocor) 40 mg PO BEDTIME [facility] Last Admin: 11/03/20 20:12 Dose: 40 mg Documented by: Sodium Biphosphate/Sodium Phosphate (Fleet Enema) 133 ml RECTAL ONETIME PRN PRN Reason: Constipation Sodium Chloride (Saline Flush) 10 ml FLUSH ASDIRECTED PRN PRN Reason: Keep Vein Open Last Admin: 10/28/20 23:06 Dose: 10 ml Documented by: Discontinued Medications Albuterol/Ipratropium (Duoneb 3.0-0.5 Mg/3 Ml) 3 ml NEB ONETIME ONE Stop: 10/28/20 19:09 Last Admin: 10/28/20 19:25 Dose: 3 ml Documented by: Albuterol/Ipratropium (Duoneb 3.0-0.5 Mg/3 Ml) 3 ml NEB ONETIME ONE Stop: 10/28/20 22:30 Last Admin: 10/28/20 22:32 Dose: 3 ml Documented by: Albuterol/Ipratropium (Duoneb 3.0-0.5 Mg/3 Ml) 3 ml NEB Q2H PRN PRN Reason: Shortness Of Breath/wheezing Last Admin: 11/02/20 10:04 Dose: 3 ml Documented by: Amiodarone HCl (Cordarone) 150 mg IVPUSH ONETIME ONE Stop: 11/03/20 10:01 Last Admin: 11/03/20 10:11 Dose: 150 mg Documented by: Aspirin (Aspirin) 81 mg PO DAILY [facility] Last Admin: 10/29/20 08:43 Dose: 81 mg Documented by: Aspirin (Aspirin) 243 mg PO ONETIME ONE Stop: 10/29/20 11:01 Last Admin: 10/29/20 10:41 Dose: 243 mg Documented by: Bisacodyl (Dulcolax) 10 mg RECTAL ONETIME ONE Stop: 10/31/20 12:01 Last Admin: 10/31/20 12:20 Dose: 10 mg Documented by: Digoxin (Lanoxin) 250 mcg IVPUSH ONETIME ONE Stop: 10/30/20 16:11 Last Admin: 10/30/20 16:27 Dose: 250 mcg Documented by: Diltiazem HCl (Cardizem) 30 mg PO Q6H [facility] Stop: 11/02/20 08:00 Last Admin: 11/02/20 03:52 Dose: 30 mg Documented by: Diltiazem HCl (Cardizem Cd) 120 mg PO DAILY [facility] Last Admin: 11/03/20 08:27 Dose: 120 mg Documented by: Enoxaparin Sodium (Lovenox) 40 mg SUBCUT Q24H [facility] Last Admin: 11/01/20 16:40 Dose: 40 mg Documented by: Furosemide (Lasix) 20 mg IVPUSH ONETIME ONE Stop: 10/29/20 02:40 Last Admin: 10/29/20 02:51 Dose: 20 mg Documented by: Furosemide (Lasix) 40 mg PO DAILY [facility] Last Admin: 10/30/20 08:02 Dose: 40 mg Documented by: Furosemide (Lasix) 40 mg IVPUSH NOW ONE Stop: 10/30/20 16:11 Last Admin: 10/30/20 16:32 Dose: 40 mg Documented by: Furosemide (Lasix) 40 mg IVPUSH NOW ONE Stop: 11/01/20 08:26 Last Admin: 11/01/20 10:19 Dose: 40 mg Documented by: Furosemide (Lasix) 40 mg IVPUSH NOW ONE Stop: 11/02/20 13:01 Last Admin: 11/02/20 13:15 Dose: 40 mg Documented by: Haloperidol Lactate (Haldol) 1 mg IVPUSH Q2H PRN PRN Reason: Agitation Last Admin: 11/03/20 03:21 Dose: 1 mg Documented by: Haloperidol Lactate (Haldol) 2 mg IVPUSH ONETIME ONE Stop: 11/02/20 05:02 Last Admin: 11/02/20 04:50 Dose: 2 mg Documented by: Ceftriaxone Sodium 1 gm/ (Sodium Chloride) 50 mls @ 100 mls/hr IV ONETIME ONE Stop: 10/28/20 19:58 Last Admin: 10/28/20 20:24 Dose: 100 mls/hr Documented by: Sodium Chloride (Normal Saline) 1,000 mls @ 1,000 mls/hr IV BOLUS ONE; Protocol Stop: 10/28/20 20:58 Last Admin: 10/28/20 20:18 Dose: 1,000 mls/hr Documented by: Vancomycin HCl 1 gm/ Sodium (Chloride) 250 mls @ 167 mls/hr IV STAT ONE Stop: 10/28/20 21:28 Last Admin: 10/28/20 20:52 Dose: 167 mls/hr Documented by: Ceftriaxone Sodium 1 gm/ (Sodium Chloride) 50 mls @ 100 mls/hr IV Q24H [facility] Last Admin: 11/01/20 20:01 Dose: 100 mls/hr Documented by: Doxycycline Hyclate 100 mg/ (Sodium Chloride) 100 mls @ 100 mls/hr IV Q12H [facility] Last Admin: 11/02/20 10:05 Dose: 100 mls/hr Documented by: Amiodarone HCl 450 mg/ (Dextrose/Water) 250 mls @ 33.333 mls/hr IV ASDIRECTED [facility]; Protocol Last Admin: 11/03/20 17:34 Dose: 1 mg/min, 33.333 mls/hr Documented by: Methylprednisolone Sodium Succinate (Solu-Medrol) 125 mg IVPUSH ONETIME ONE Stop: 10/28/20 22:56 Last Admin: 10/28/20 23:06 Dose: 125 mg Documented by: Methylprednisolone Sodium Succinate (Solu-Medrol) 40 mg IVPUSH Q6H [facility] Last Admin: 10/31/20 03:39 Dose: 40 mg Documented by: Metoprolol Tartrate (Lopressor) 25 mg PO ONETIME ONE Stop: 10/29/20 02:40 Last Admin: 10/29/20 02:50 Dose: 25 mg Documented by: Metoprolol Tartrate (Lopressor) 25 mg PO BID [facility] Last Admin: 10/29/20 10:42 Dose: 25 mg Documented by: Metoprolol Tartrate (Lopressor) 12.5 mg PO BID [facility] Last Admin: 10/30/20 08:03 Dose: 12.5 mg Documented by: Metoprolol Tartrate (Lopressor) 25 mg PO BID [facility] Last Admin: 11/03/20 08:22 Dose: 25 mg Documented by: Morphine Sulfate (Morphine) 2 mg IVPUSH Q2H PRN PRN Reason: Pain (severe 7-10) Last Admin: 11/02/20 03:43 Dose: 2 mg Documented by: Potassium Chloride (Klor-Con M20) 40 meq PO ONETIME ONE Stop: 10/28/20 19:56 Last Admin: 10/28/20 20:17 Dose: 40 meq Documented by: Potassium Chloride (Klor-Con M20) 40 meq PO ONETIME ONE Stop: 10/30/20 08:31 Last Admin: 10/30/20 09:25 Dose: 40 meq Documented by: Potassium Chloride (Klor-Con M20) 40 meq PO ONETIME ONE Stop: 10/30/20 13:01 Last Admin: 10/30/20 14:28 Dose: 40 meq Documented by: Prednisone (Prednisone) 40 mg PO DAILY [facility] Last Admin: 11/03/20 08:24 Dose: 40 mg Documented by: Prednisone (Prednisone) 40 mg PO DAILY [facility] Last Admin: 11/02/20 09:08 Dose: 40 mg Documented by: Simvastatin (Zocor) 20 mg PO ONETIME ONE Stop: 10/29/20 00:53 Last Admin: 10/29/20 02:24 Dose: Not Given Documented by: Simvastatin (Zocor) 20 mg PO ONETIME ONE Stop: 10/29/20 09:01 Last Admin: 10/29/20 08:43 Dose: 20 mg Documented by: Simvastatin (Zocor) 20 mg PO BEDTIME ONE Stop: 10/29/20 21:01 Last Admin: 10/29/20 20:08 Dose: 20 mg Documented by: - Exam Quality Assessment: Supplemental Oxygen, DVT Prophylaxis General: Alert, Cooperative, No Acute Distress Lungs: Decreased Breath Sounds. No: Rales, Rhonchi, Wheezing Cardiovascular: Regular Rate, Regular Rhythm, No Murmurs GI/Abdominal Exam: Soft, Non-Tender, No Organomegaly, No Distention Extremities: Non-Tender, No Pedal Edema Sepsis Event Note - Evaluation Sepsis Screening Result: No Definite Risk - Focused Exam Vital Signs: Vital Signs Temp Pulse Pulse Resp BP BP Pulse Ox 11/04/20 09:33 95/44 L 11/04/20 09:30 88 95/44 L 11/04/20 08:00 96.7 F L 79 18 94/46 L 92 L 11/04/20 07:01 91 11/04/20 07:00 104 H 22 H 119/71 91 L 11/04/20 06:00 20 106/73 95 11/04/20 05:00 17 95/43 L 96 11/04/20 04:00 82 15 106/43 L 95 11/04/20 03:00 96 F L 20 97/36 L 95 11/04/20 02:00 15 98/39 L 99 11/04/20 01:00 15 92/40 L 11/04/20 00:00 16 106/43 L 93 L 11/03/20 23:00 16 102/52 L 96 11/03/20 22:00 15 88/42 L 96 - Problem List Review Problem List Initiated/Reviewed/Updated: Yes - My Orders Last 24 Hours: My Active Orders 11/03/20 09:00 lisinopriL [Prinivil] 2.5 mg PO DAILY 11/03/20 09:07 Haloperidol Lactate [Haldol] 2 mg IVPUSH Q2H PRN 11/04/20 09:00 Amiodarone [Cordarone] 200 mg PO BID Metoprolol Tartrate [Lopressor] 12.5 mg PO Q12H 11/04/20 14:00 Furosemide [Lasix] 20 mg IVPUSH NOW ONE - Plan Plan:: ASSESSMENT AND PLAN BILATERAL PNEUMONIA WITH PROBABLE SEPSIS-stable with current management, after today he will have completed a 7-day course of antibiotic therapy HYPOXIC RESPIRATORY FAILURE-secondary to underlying COPD exacerbation and pulmonary infiltrates, CHF may also be a contributing factor -Supplemental oxygen as needed -Correct and treat underlying problems ATRIAL FIBRILLATION WITH RAPID VENTRICULAR RESPONSE-prior history of A. fib, intermittently elevated especially with fairly minimal activity. [id number] score of 5. Heart rate control has improved significantly with amiodarone infusion -Monitor in ICU -Toprol all 12.5 mg p.o. twice daily -Amiodarone 200 mg p.o. twice daily -Eliquis 5 mg p.o. twice daily COPD EXACERBATION-secondary to bilateral pneumonia -Nebulizer therapy as needed CONGESTIVE HEART FAILURE-echocardiogram shows decreased left ventricular systolic function with estimated ejection fraction of 35 to 30% and severe mitral regurgitation -IV furosemide daily - lisinopril 2.5 mg p.o. daily MAINTENANCE ISSUES -DVT prophylaxis; current therapy with Eliquis should provide adequate DVT prophylaxis -GI prophylaxis; not indicated -[place] catheter; not indicated -Nutrition; 2 g sodium diet -Nicotine dependence; nicotine patch CODE STATUS-FULL CODE ADMISSION STATUS-patient will be admitted to inpatient status, expect at least a 2 night hospital stay for evaluation and management of problems as outlined above. At the time of this admission I do not reasonably expected evaluation and management of this problem will require more than a 96 hour hospital stay. DISPOSITION-anticipate discharge to [facility] for restorative physical therapy and Occupational Therapy
[2020-11-04] MEDS: Acetaminophen 325 MG Tab PO PRN (10:10)
[2020-11-04] MEDS ORDERED: Sodium Chloride 0.9% 500 ML IV ONE (13:45)
[2020-11-04] MEDS ORDERED: Furosemide 20 MG/2 ML VIAL IVPUSH ONE (14:00)
[2020-11-04] MEDS: Melatonin 3 MG Tab PO PRN (20:19)
[2020-11-04] MEDS: Simvastatin 20 MG Tab PO SCH (20:20)
[2020-11-05] MEDS: Albuterol/Ipratropium 3.0-0.5 MG/3 ML Neb Soln NEB SCH ×4 (07:13→20:20)
[2020-11-05] MEDS: Divalproex Sodium Delayed-Release 250 MG Tab.CR PO SCH ×2 (08:15→17:20)
[2020-11-05] MEDS: Amiodarone 200 MG Tab PO SCH ×2 (08:15→20:11)
[2020-11-05] MEDS: Apixaban 5 MG Tab PO SCH ×2 (08:15→20:11)
[2020-11-05] MEDS: Levothyroxine 25 MCG Tab PO SCH (08:15)
[2020-11-05] MEDS: Aspirin 325 MG Tab.EC PO SCH (08:15)
[2020-11-05] MEDS: Lactobacillus Rhamnosus GG (Probiotic) Cap PO SCH ×2 (08:15→20:11)
[2020-11-05] MEDS: Nicotine 7 MG/24 Hr Patch TRDERM SCH (08:16)
[2020-11-05] MEDS ORDERED: Digoxin 125 MCG Tab PO ONE (09:15)
--- NOTE | 2020-11-05 09:21 | PCM.PN ---
- General Info Date of Service: 11/05/20 Subjective Update: No acute events overnight though his heart rate has crept up to the 120s and sometimes 130s with activity. He reports that he feels weak and feels short of breath especially with activity. No significant behavior issues overnight and he has been less confused per nursing report. He reports no bowel movement for several days. No complaints of abdominal pain. He does continue to require 1 L of supplemental oxygen. No fevers. Functional Status: Reports: Pain Controlled, Tolerating Diet - Review of Systems General: Reports: Weakness. Denies: Fever Pulmonary: Reports: Shortness of Breath - Patient Data Vitals - Most Recent: Last Vital Signs Temp 35.3 C L 11/05/20 07:45 Pulse 109 H 11/05/20 07:45 Resp 20 11/05/20 07:45 BP 90/49 L 11/05/20 07:45 Pulse Ox 96 11/05/20 07:45 Weight - Most Recent: 67.404 kg I&O - Last 24 Hours: Intake & Output 11/04/20 11/05/20 11/05/20 22:59 06:59 14:59 Intake Total 290 120 Output Total 425 275 Balance -135 -155 Med Orders - Current: Current Medications Acetaminophen (Tylenol) 650 mg PO Q4H PRN PRN Reason: Pain (Mild 1-3)/fever Last Admin: 11/04/20 10:10 Dose: 650 mg Documented by: Albuterol (Proventil Neb Soln) 2.5 mg NEB Q2H PRN PRN Reason: Shortness Of Breath/wheezing Last Admin: 10/31/20 19:41 Dose: 2.5 mg Documented by: Albuterol/Ipratropium (Duoneb 3.0-0.5 Mg/3 Ml) 3 ml NEB QIDRT [facility] Last Admin: 11/05/20 07:13 Dose: 3 ml Documented by: Amiodarone HCl (Cordarone) 200 mg PO BID [facility] Last Admin: 11/05/20 08:15 Dose: 200 mg Documented by: Apixaban (Eliquis) 5 mg PO BID [facility] Last Admin: 11/05/20 08:15 Dose: 5 mg Documented by: [facility]proex [facility] ([facility]) [facility] Admin: 11/05/20 08:15 Dose: 250 mg Documented by: Haloperidol Lactate (Haldol) 2 mg IVPUSH Q2H PRN PRN Reason: Agitation Last Admin: 11/04/20 20:29 Dose: 2 mg Documented by: Lactobacillus Rhamnosus (Culturelle) 1 cap PO BID [facility] Last Admin: 11/05/20 08:15 Dose: 1 cap Documented by: Levothyroxine Sodium (Levothyroxine) 25 mcg PO ACBREAKFAST [facility] Last Admin: 11/05/20 08:15 Dose: 25 mcg Documented by: Melatonin (Melatonin) 9 mg PO BEDTIME [facility] Metoprolol Tartrate (Lopressor) 12.5 mg PO BID [facility] Nicotine (Habitrol) 7 mg TRDERM DAILY [facility] Last Admin: 11/05/20 08:16 Dose: 7 mg Documented by: Ondansetron HCl (Zofran Odt) 4 mg PO Q6H PRN PRN Reason: Nausea able to take PO Oxycodone HCl (Oxycodone) 5 mg PO Q4H PRN PRN Reason: Pain (moderate 4-6) Last Admin: 11/04/20 20:19 Dose: 5 mg Documented by: Polyethylene Glycol (Miralax) 17 gm PO DAILY PRN PRN Reason: Constipation Last Admin: 11/04/20 07:29 Dose: 17 gm Documented by: Simvastatin (Zocor) 40 mg PO BEDTIME [facility] Last Admin: 11/04/20 20:20 Dose: 40 mg Documented by: Sodium Biphosphate/Sodium Phosphate (Fleet Enema) 133 ml RECTAL ONETIME PRN PRN Reason: Constipation Sodium Chloride (Saline Flush) 10 ml FLUSH ASDIRECTED PRN PRN Reason: Keep Vein Open Last Admin: 10/28/20 23:06 Dose: 10 ml Documented by: Discontinued Medications Albuterol/Ipratropium (Duoneb 3.0-0.5 Mg/3 Ml) 3 ml NEB ONETIME ONE Stop: 10/28/20 19:09 Last Admin: 10/28/20 19:25 Dose: 3 ml Documented by: Albuterol/Ipratropium (Duoneb 3.0-0.5 Mg/3 Ml) 3 ml NEB ONETIME ONE Stop: 10/28/20 22:30 Last Admin: 10/28/20 22:32 Dose: 3 ml Documented by: Albuterol/Ipratropium (Duoneb 3.0-0.5 Mg/3 Ml) 3 ml NEB Q2H PRN PRN Reason: Shortness Of Breath/wheezing Last Admin: 11/02/20 10:04 Dose: 3 ml Documented by: Amiodarone HCl (Cordarone) 150 mg IVPUSH ONETIME ONE Stop: 11/03/20 10:01 Last Admin: 11/03/20 10:11 Dose: 150 mg Documented by: Aspirin (Aspirin) 81 mg PO DAILY [facility] Last Admin: 10/29/20 08:43 Dose: 81 mg Documented by: Aspirin (Ecotrin) 325 mg PO DAILY [facility] Last Admin: 11/05/20 08:15 Dose: 325 mg Documented by: Aspirin (Aspirin) 243 mg PO ONETIME ONE Stop: 10/29/20 11:01 Last Admin: 10/29/20 10:41 Dose: 243 mg Documented by: Bisacodyl (Dulcolax) 10 mg RECTAL ONETIME ONE Stop: 10/31/20 12:01 Last Admin: 10/31/20 12:20 Dose: 10 mg Documented by: Digoxin (Lanoxin) 250 mcg IVPUSH ONETIME ONE Stop: 10/30/20 16:11 Last Admin: 10/30/20 16:27 Dose: 250 mcg Documented by: Digoxin (Lanoxin) 125 mcg PO ONETIME ONE Stop: 11/05/20 09:16 Diltiazem HCl (Cardizem) 30 mg PO Q6H [facility] Stop: 11/02/20 08:00 Last Admin: 11/02/20 03:52 Dose: 30 mg Documented by: Diltiazem HCl (Cardizem Cd) 120 mg PO DAILY [facility] Last Admin: 11/03/20 08:27 Dose: 120 mg Documented by: Doxycycline Hyclate (Vibramycin) 100 mg PO Q12H [facility] Stop: 11/04/20 23:59 Last Admin: 11/04/20 20:19 Dose: 100 mg Documented by: Enoxaparin Sodium (Lovenox) 40 mg SUBCUT Q24H [facility] Last Admin: 11/01/20 16:40 Dose: 40 mg Documented by: Furosemide (Lasix) 20 mg IVPUSH ONETIME ONE Stop: 10/29/20 02:40 Last Admin: 10/29/20 02:51 Dose: 20 mg Documented by: Furosemide (Lasix) 40 mg PO DAILY [facility] Last Admin: 10/30/20 08:02 Dose: 40 mg Documented by: Furosemide (Lasix) 40 mg IVPUSH NOW ONE Stop: 10/30/20 16:11 Last Admin: 10/30/20 16:32 Dose: 40 mg Documented by: Furosemide (Lasix) 40 mg IVPUSH NOW ONE Stop: 11/01/20 08:26 Last Admin: 11/01/20 10:19 Dose: 40 mg Documented by: Furosemide (Lasix) 40 mg IVPUSH NOW ONE Stop: 11/02/20 13:01 Last Admin: 11/02/20 13:15 Dose: 40 mg Documented by: Furosemide (Lasix) 20 mg IVPUSH NOW ONE Stop: 11/04/20 14:01 Last Admin: 11/04/20 14:14 Dose: Not Given Documented by: Haloperidol Lactate (Haldol) 1 mg IVPUSH Q2H PRN PRN Reason: Agitation Last Admin: 11/03/20 03:21 Dose: 1 mg Documented by: Haloperidol Lactate (Haldol) 2 mg IVPUSH ONETIME ONE Stop: 11/02/20 05:02 Last Admin: 11/02/20 04:50 Dose: 2 mg Documented by: Ceftriaxone Sodium 1 gm/ (Sodium Chloride) 50 mls @ 100 mls/hr IV ONETIME ONE Stop: 10/28/20 19:58 Last Admin: 10/28/20 20:24 Dose: 100 mls/hr Documented by: Sodium Chloride (Normal Saline) 1,000 mls @ 1,000 mls/hr IV BOLUS ONE; Protocol Stop: 10/28/20 20:58 Last Admin: 10/28/20 20:18 Dose: 1,000 mls/hr Documented by: Vancomycin HCl 1 gm/ Sodium (Chloride) 250 mls @ 167 mls/hr IV STAT ONE Stop: 10/28/20 21:28 Last Admin: 10/28/20 20:52 Dose: 167 mls/hr Documented by: Ceftriaxone Sodium 1 gm/ (Sodium Chloride) 50 mls @ 100 mls/hr IV Q24H [facility] Last Admin: 11/01/20 20:01 Dose: 100 mls/hr Documented by: Doxycycline Hyclate 100 mg/ (Sodium Chloride) 100 mls @ 100 mls/hr IV Q12H [facility] Last Admin: 11/02/20 10:05 Dose: 100 mls/hr Documented by: Amiodarone HCl 450 mg/ (Dextrose/Water) 250 mls @ 33.333 mls/hr IV ASDIRECTED [facility]; Protocol Last Admin: 11/03/20 17:34 Dose: 1 mg/min, 33.333 mls/hr Documented by: Sodium Chloride (Normal Saline) 500 mls @ 999 mls/hr IV .BOLUS ONE Stop: 11/04/20 14:15 Last Admin: 11/04/20 13:50 Dose: 999 mls/hr Documented by: Lisinopril (Prinivil) 2.5 mg PO DAILY [facility] Last Admin: 11/04/20 09:33 Dose: 2.5 mg Documented by: Melatonin (Melatonin) 9 mg PO BEDTIME PRN PRN Reason: Insomnia Last Admin: 11/04/20 20:19 Dose: 9 mg Documented by: Methylprednisolone Sodium Succinate (Solu-Medrol) 125 mg IVPUSH ONETIME ONE Stop: 10/28/20 22:56 Last Admin: 10/28/20 23:06 Dose: 125 mg Documented by: Methylprednisolone Sodium Succinate (Solu-Medrol) 40 mg IVPUSH Q6H [facility] Last Admin: 10/31/20 03:39 Dose: 40 mg Documented by: Metoprolol Tartrate (Lopressor) 25 mg PO ONETIME ONE Stop: 10/29/20 02:40 Last Admin: 10/29/20 02:50 Dose: 25 mg Documented by: Metoprolol Tartrate (Lopressor) 25 mg PO BID [facility] Last Admin: 10/29/20 10:42 Dose: 25 mg Documented by: Metoprolol Tartrate (Lopressor) 12.5 mg PO BID [facility] Last Admin: 10/30/20 08:03 Dose: 12.5 mg Documented by: Metoprolol Tartrate (Lopressor) 25 mg PO BID [facility] Last Admin: 11/03/20 08:22 Dose: 25 mg Documented by: Metoprolol Tartrate (Lopressor) 12.5 mg PO Q12H [facility] Last Admin: 11/04/20 09:30 Dose: 12.5 mg Documented by: Morphine Sulfate (Morphine) 2 mg IVPUSH Q2H PRN PRN Reason: Pain (severe 7-10) Last Admin: 11/02/20 03:43 Dose: 2 mg Documented by: Potassium Chloride (Klor-Con M20) 40 meq PO ONETIME ONE Stop: 10/28/20 19:56 Last Admin: 10/28/20 20:17 Dose: 40 meq Documented by: Potassium Chloride (Klor-Con M20) 40 meq PO ONETIME ONE Stop: 10/30/20 08:31 Last Admin: 10/30/20 09:25 Dose: 40 meq Documented by: Potassium Chloride (Klor-Con M20) 40 meq PO ONETIME ONE Stop: 10/30/20 13:01 Last Admin: 10/30/20 14:28 Dose: 40 meq Documented by: Prednisone (Prednisone) 40 mg PO DAILY [facility] Last Admin: 11/03/20 08:24 Dose: 40 mg Documented by: Prednisone (Prednisone) 40 mg PO DAILY [facility] Last Admin: 11/02/20 09:08 Dose: 40 mg Documented by: Simvastatin (Zocor) 20 mg PO ONETIME ONE Stop: 10/29/20 00:53 Last Admin: 10/29/20 02:24 Dose: Not Given Documented by: Simvastatin (Zocor) 20 mg PO ONETIME ONE Stop: 10/29/20 09:01 Last Admin: 10/29/20 08:43 Dose: 20 mg Documented by: Simvastatin (Zocor) 20 mg PO BEDTIME ONE Stop: 10/29/20 21:01 Last Admin: 10/29/20 20:08 Dose: 20 mg Documented by: - Exam Quality Assessment: Supplemental Oxygen General: Alert, Oriented, Cooperative, No Acute Distress Neck: No JVD. No: Thyromegaly Lungs: Normal Respiratory Effort, Decreased Breath Sounds (right lung base ). No: Crackles Cardiovascular: Irregular Rhythm, Tachycardia GI/Abdominal Exam: Normal Bowel Sounds, Soft, No Distention Extremities: Pedal Edema (trace bilateral ankle edema ). No: Increased Warmth Skin: Warm, Dry Psy/Mental Status: Alert, Normal Affect. No: Agitated Sepsis Event Note - Evaluation Sepsis Screening Result: Sepsis Risk - Focused Exam Vital Signs: Vital Signs Temp Pulse Resp BP Pulse Ox 11/05/20 07:45 35.3 C L 109 H 20 90/49 L 96 11/05/20 07:13 103 H 11/05/20 06:00 25 H 102/45 L 99 11/05/20 04:00 35.5 C L 17 109/47 L 95 11/05/20 02:00 20 105/48 L 94 L 11/05/20 00:00 35.5 C L 16 98/62 95 11/04/20 22:00 18 107/50 L 96 - Problem List Review Problem List Initiated/Reviewed/Updated: Yes - My Orders Last 24 Hours: My Active Orders 11/05/20 08:34 PT Evaluation and Treatment [CONS] Routine 11/05/20 08:36 OT Evaluation and Treatment [CONS] Routine 11/05/20 09:00 Metoprolol Tartrate [Lopressor] 12.5 mg PO BID 11/05/20 21:00 Melatonin 9 mg PO BEDTIME 11/06/20 05:00 BASIC METABOLIC PANEL,BMP [CHEM] Timed CBC W/O DIFF,HEMOGRAM [HEME] Timed (1) 11/06/20 09:00 Aspirin [Halfprin] 81 mg PO DAILY - Plan Plan:: ASSESSMENT AND PLAN - BILATERAL PNEUMONIA WITH PROBABLE SEPSIS-he has completed adequate antibiotic therapy. Weak but otherwise seems to be doing well and progressing.. -Start physical therapy HYPOXIC RESPIRATORY FAILURE-secondary to underlying COPD exacerbation and pulmonary infiltrates. He is down to 1 L supplemental oxygen hopefully this can be weaned off in the near future. -Supplemental oxygen as needed ATRIAL FIBRILLATION WITH RAPID VENTRICULAR [id number] score of 5. Heart rate control had improved but has risen some overnight. Blood pressure is on the low side. -Cardiac monitoring -Hold lisinopril so we have more room for rate control medications -Metoprolol 12.5 mg twice daily -Trial of digoxin -Amiodarone 200 mg p.o. twice daily -Apixaban 5 mg p.o. twice daily COPD EXACERBATION-secondary to bilateral pneumonia. No active wheezing. -Nebulizer therapy as needed SYSTOLIC CONGESTIVE HEART FAILURE-echocardiogram shows decreased left ventricular systolic function with estimated ejection fraction of 35 to 30% and severe mitral regurgitation -Volume status appropriate today -Continue beta-shasha -Hold lisinopril with hypotension MAINTENANCE ISSUES -DVT prophylaxis; apixaban -GI prophylaxis; not indicated -[place] catheter; not indicated -Nutrition; 2 g sodium diet DISPOSITION-anticipate discharge to assisted for restorative physical therapy and Occupational Therapy Andrew Murphy MD
[2020-11-05] MEDS: Metoprolol Tartrate 25 MG Tab PO SCH ×2 (09:43→20:10)
[2020-11-05] MEDS: Simvastatin 20 MG Tab PO SCH (20:11)
[2020-11-05] MEDS: Melatonin 3 MG Tab PO SCH (20:11)
[2020-11-05] MEDS: Polyethylene Glycol 3350 Powder 17 GM Packet PO PRN (20:35)
[2020-11-06] MEDS: Albuterol/Ipratropium 3.0-0.5 MG/3 ML Neb Soln NEB SCH (06:59)
[2020-11-06] MEDS ORDERED: Digoxin 125 MCG Tab PO ONE (08:00)
[2020-11-06] MEDS: Nicotine 7 MG/24 Hr Patch TRDERM SCH (08:50)
--- NOTE | 2020-11-06 08:50 | PCM.PN ---
- General Info Date of Service: 11/06/20 Subjective Update: No acute events overnight. Patient reports that he slept fairly well though he was a little restless. He did have 2 bowel movements overnight. He feels less short of breath today. Appetite still not great but a little better today. No complaints of chest pain or abdominal pain. Atrial fibrillation control has been borderline but better. Blood pressures have been in the low normal range and are stable. Functional Status: Reports: Pain Controlled, Tolerating Diet - Review of Systems General: Reports: Weakness. Denies: Fever Pulmonary: Reports: Shortness of Breath (mild ) - Patient Data Vitals - Most Recent: Last Vital Signs Temp 36.2 C 11/06/20 08:00 Pulse 117 H 11/06/20 08:39 Resp 21 H 11/06/20 08:00 BP 96/41 L 11/06/20 08:39 Pulse Ox 96 11/06/20 08:00 Weight - Most Recent: 67.404 kg I&O - Last 24 Hours: Intake & Output 11/05/20 11/06/20 11/06/20 22:59 06:59 14:59 Intake Total 500 Output Total 200 275 100 Balance -200 225 -100 Lab Results Last 24 Hours: Laboratory Results - last 24 hr 11/06/20 11/06/20 Range/Units 04:15 04:15 WBC 12.4 H (4.5-11.0) K/uL RBC 3.10 L (4.30-5.90) M/uL Hgb 9.6 L (12.0-15.0) g/dL Hct 31.4 L (40.0-54.0) % MCV 101 H (80-98) fL MCH 31 (27-31) pg MCHC 31 L (32-36) % Plt Count 191 (150-400) K/uL Sodium 146 (140-148) mmol/L Potassium 4.8 (3.6-5.2) mmol/L Chloride 107 (100-108) mmol/L Carbon Dioxide 30 (21-32) mmol/L Anion Gap 9.3 (5.0-14.0) mmol/L BUN 30 H (7-18) mg/dL Creatinine 0.9 (0.8-1.3) mg/dL Est Cr Clr Drug Dosing 55.96 mL/min Estimated GFR (MDRD) > 60 (>60) Glucose 104 (74-106) mg/dL Calcium 8.1 L (8.5-10.1) mg/dL Med Orders - Current: Current Medications Acetaminophen (Tylenol) 650 mg PO Q4H PRN PRN Reason: Pain (Mild 1-3)/fever Last Admin: 11/04/20 10:10 Dose: 650 mg Documented by: Albuterol (Proventil Neb Soln) 2.5 mg NEB Q2H PRN PRN Reason: Shortness Of Breath/wheezing Last Admin: 10/31/20 19:41 Dose: 2.5 mg Documented by: Amiodarone HCl (Cordarone) 200 mg PO BID [facility] Last Admin: 11/05/20 20:11 Dose: 200 mg Documented by: Apixaban (Eliquis) 5 mg PO BID [facility] Last Admin: 11/05/20 20:11 Dose: 5 mg Documented by: Aspirin (Halfprin) 81 mg PO DAILY [facility] Lactobacillus Rhamnosus (Culturelle) 1 cap PO BID [facility] Last Admin: 11/05/20 20:11 Dose: 1 cap Documented by: Levothyroxine Sodium (Levothyroxine) 25 mcg PO ACBREAKFAST [facility] Last Admin: 11/05/20 08:15 Dose: 25 mcg Documented by: Melatonin (Melatonin) 9 mg PO BEDTIME [facility] Last Admin: 11/05/20 20:11 Dose: 9 mg Documented by: Metoprolol Succinate (Toprol Xl) 25 mg PO DAILY [facility] Nicotine (Habitrol) 7 mg TRDERM DAILY [facility] Last Admin: 11/05/20 08:16 Dose: 7 mg Documented by: Ondansetron HCl (Zofran Odt) 4 mg PO Q6H PRN PRN Reason: Nausea able to take PO Oxycodone HCl (Oxycodone) 5 mg PO Q4H PRN PRN Reason: Pain (moderate 4-6) Last Admin: 11/04/20 20:19 Dose: 5 mg Documented by: Polyethylene Glycol (Miralax) 17 gm PO DAILY PRN PRN Reason: Constipation Last Admin: 11/05/20 20:35 Dose: 17 gm Documented by: Simvastatin (Zocor) 40 mg PO BEDTIME [facility] Last Admin: 11/05/20 20:11 Dose: 40 mg Documented by: Sodium Biphosphate/Sodium Phosphate (Fleet Enema) 133 ml RECTAL ONETIME PRN PRN Reason: Constipation Sodium Chloride (Saline Flush) 10 ml FLUSH ASDIRECTED PRN PRN Reason: Keep Vein Open Last Admin: 10/28/20 23:06 Dose: 10 ml Documented by: Discontinued Medications Albuterol/Ipratropium (Duoneb 3.0-0.5 Mg/3 Ml) 3 ml NEB ONETIME ONE Stop: 10/28/20 19:09 Last Admin: 10/28/20 19:25 Dose: 3 ml Documented by: Albuterol/Ipratropium (Duoneb 3.0-0.5 Mg/3 Ml) 3 ml NEB ONETIME ONE Stop: 10/28/20 22:30 Last Admin: 10/28/20 22:32 Dose: 3 ml Documented by: Albuterol/Ipratropium (Duoneb 3.0-0.5 Mg/3 Ml) 3 ml NEB Q2H PRN PRN Reason: Shortness Of Breath/wheezing Last Admin: 11/02/20 10:04 Dose: 3 ml Documented by: Albuterol/Ipratropium (Duoneb 3.0-0.5 Mg/3 Ml) 3 ml NEB QIDRT [facility] Last Admin: 11/06/20 06:59 Dose: 3 ml Documented by: Amiodarone HCl (Cordarone) 150 mg IVPUSH ONETIME ONE Stop: 11/03/20 10:01 Last Admin: 11/03/20 10:11 Dose: 150 mg Documented by: Aspirin (Aspirin) 81 mg PO DAILY [facility] Last Admin: 10/29/20 08:43 Dose: 81 mg Documented by: Aspirin (Ecotrin) 325 mg PO DAILY [facility] Last Admin: 11/05/20 08:15 Dose: 325 mg Documented by: Aspirin (Aspirin) 243 mg PO ONETIME ONE Stop: 10/29/20 11:01 Last Admin: 10/29/20 10:41 Dose: 243 mg Documented by: Bisacodyl (Dulcolax) 10 mg RECTAL ONETIME ONE Stop: 10/31/20 12:01 Last Admin: 10/31/20 12:20 Dose: 10 mg Documented by: Digoxin (Lanoxin) 250 mcg IVPUSH ONETIME ONE Stop: 10/30/20 16:11 Last Admin: 10/30/20 16:27 Dose: 250 mcg Documented by: Digoxin (Lanoxin) 125 mcg PO ONETIME ONE Stop: 11/05/20 09:16 Last Admin: 11/05/20 09:43 Dose: 125 mcg Documented by: Digoxin (Lanoxin) 125 mcg PO ONETIME ONE Stop: 11/06/20 08:01 Diltiazem HCl (Cardizem) 30 mg PO Q6H [facility] Stop: 11/02/20 08:00 Last Admin: 11/02/20 03:52 Dose: 30 mg Documented by: Diltiazem HCl (Cardizem Cd) 120 mg PO DAILY [facility] Last Admin: 11/03/20 08:27 Dose: 120 mg Documented by: Divalproex Sodium (Divalproex Sodium) 250 mg PO BIDMEALS [facility] Last Admin: 11/05/20 17:20 Dose: 250 mg Documented by: Doxycycline Hyclate (Vibramycin) 100 mg PO Q12H [facility] Stop: 11/04/20 23:59 Last Admin: 11/04/20 20:19 Dose: 100 mg Documented by: Enoxaparin Sodium (Lovenox) 40 mg SUBCUT Q24H [facility] Last Admin: 11/01/20 16:40 Dose: 40 mg Documented by: Furosemide (Lasix) 20 mg IVPUSH ONETIME ONE Stop: 10/29/20 02:40 Last Admin: 10/29/20 02:51 Dose: 20 mg Documented by: Furosemide (Lasix) 40 mg PO DAILY [facility] Last Admin: 10/30/20 08:02 Dose: 40 mg Documented by: Furosemide (Lasix) 40 mg IVPUSH NOW ONE Stop: 10/30/20 16:11 Last Admin: 10/30/20 16:32 Dose: 40 mg Documented by: Furosemide (Lasix) 40 mg IVPUSH NOW ONE Stop: 11/01/20 08:26 Last Admin: 11/01/20 10:19 Dose: 40 mg Documented by: Furosemide (Lasix) 40 mg IVPUSH NOW ONE Stop: 11/02/20 13:01 Last Admin: 11/02/20 13:15 Dose: 40 mg Documented by: Furosemide (Lasix) 20 mg IVPUSH NOW ONE Stop: 11/04/20 14:01 Last Admin: 11/04/20 14:14 Dose: Not Given Documented by: Haloperidol Lactate (Haldol) 1 mg IVPUSH Q2H PRN PRN Reason: Agitation Last Admin: 11/03/20 03:21 Dose: 1 mg Documented by: Haloperidol Lactate (Haldol) 2 mg IVPUSH ONETIME ONE Stop: 11/02/20 05:02 Last Admin: 11/02/20 04:50 Dose: 2 mg Documented by: Haloperidol Lactate (Haldol) 2 mg IVPUSH Q2H PRN PRN Reason: Agitation Last Admin: 11/04/20 20:29 Dose: 2 mg Documented by: Ceftriaxone Sodium 1 gm/ (Sodium Chloride) 50 mls @ 100 mls/hr IV ONETIME ONE Stop: 10/28/20 19:58 Last Admin: 10/28/20 20:24 Dose: 100 mls/hr Documented by: Sodium Chloride (Normal Saline) 1,000 mls @ 1,000 mls/hr IV BOLUS ONE; Protocol Stop: 10/28/20 20:58 Last Admin: 10/28/20 20:18 Dose: 1,000 mls/hr Documented by: Vancomycin HCl 1 gm/ Sodium (Chloride) 250 mls @ 167 mls/hr IV STAT ONE Stop: 10/28/20 21:28 Last Admin: 10/28/20 20:52 Dose: 167 mls/hr Documented by: Ceftriaxone Sodium 1 gm/ (Sodium Chloride) 50 mls @ 100 mls/hr IV Q24H [facility] Last Admin: 11/01/20 20:01 Dose: 100 mls/hr Documented by: Doxycycline Hyclate 100 mg/ (Sodium Chloride) 100 mls @ 100 mls/hr IV Q12H [facility] Last Admin: 11/02/20 10:05 Dose: 100 mls/hr Documented by: Amiodarone HCl 450 mg/ (Dextrose/Water) 250 mls @ 33.333 mls/hr IV ASDIRECTED [facility]; Protocol Last Admin: 11/03/20 17:34 Dose: 1 mg/min, 33.333 mls/hr Documented by: Sodium Chloride (Normal Saline) 500 mls @ 999 mls/hr IV .BOLUS ONE Stop: 11/04/20 14:15 Last Admin: 11/04/20 13:50 Dose: 999 mls/hr Documented by: Lisinopril (Prinivil) 2.5 mg PO DAILY [facility] Last Admin: 11/04/20 09:33 Dose: 2.5 mg Documented by: Melatonin (Melatonin) 9 mg PO BEDTIME PRN PRN Reason: Insomnia Last Admin: 11/04/20 20:19 Dose: 9 mg Documented by: Methylprednisolone Sodium Succinate (Solu-Medrol) 125 mg IVPUSH ONETIME ONE Stop: 10/28/20 22:56 Last Admin: 10/28/20 23:06 Dose: 125 mg Documented by: Methylprednisolone Sodium Succinate (Solu-Medrol) 40 mg IVPUSH Q6H [facility] Last Admin: 10/31/20 03:39 Dose: 40 mg Documented by: Metoprolol Tartrate (Lopressor) 25 mg PO ONETIME ONE Stop: 10/29/20 02:40 Last Admin: 10/29/20 02:50 Dose: 25 mg Documented by: Metoprolol Tartrate (Lopressor) 25 mg PO BID [facility] Last Admin: 10/29/20 10:42 Dose: 25 mg Documented by: Metoprolol Tartrate (Lopressor) 12.5 mg PO BID [facility] Last Admin: 10/30/20 08:03 Dose: 12.5 mg Documented by: Metoprolol Tartrate (Lopressor) 25 mg PO BID [facility] Last Admin: 11/03/20 08:22 Dose: 25 mg Documented by: Metoprolol Tartrate (Lopressor) 12.5 mg PO Q12H [facility] Last Admin: 11/04/20 09:30 Dose: 12.5 mg Documented by: Metoprolol Tartrate (Lopressor) 12.5 mg PO BID [facility] Last Admin: 11/05/20 20:10 Dose: 12.5 mg Documented by: Morphine Sulfate (Morphine) 2 mg IVPUSH Q2H PRN PRN Reason: Pain (severe 7-10) Last Admin: 11/02/20 03:43 Dose: 2 mg Documented by: Potassium Chloride (Klor-Con M20) 40 meq PO ONETIME ONE Stop: 10/28/20 19:56 Last Admin: 10/28/20 20:17 Dose: 40 meq Documented by: Potassium Chloride (Klor-Con M20) 40 meq PO ONETIME ONE Stop: 10/30/20 08:31 Last Admin: 10/30/20 09:25 Dose: 40 meq Documented by: Potassium Chloride (Klor-Con M20) 40 meq PO ONETIME ONE Stop: 10/30/20 13:01 Last Admin: 10/30/20 14:28 Dose: 40 meq Documented by: Prednisone (Prednisone) 40 mg PO DAILY [facility] Last Admin: 11/03/20 08:24 Dose: 40 mg Documented by: Prednisone (Prednisone) 40 mg PO DAILY [facility] Last Admin: 11/02/20 09:08 Dose: 40 mg Documented by: Simvastatin (Zocor) 20 mg PO ONETIME ONE Stop: 10/29/20 00:53 Last Admin: 10/29/20 02:24 Dose: Not Given Documented by: Simvastatin (Zocor) 20 mg PO ONETIME ONE Stop: 10/29/20 09:01 Last Admin: 10/29/20 08:43 Dose: 20 mg Documented by: Simvastatin (Zocor) 20 mg PO BEDTIME ONE Stop: 10/29/20 21:01 Last Admin: 10/29/20 20:08 Dose: 20 mg Documented by: - Exam Quality Assessment: Supplemental Oxygen General: Alert, Oriented, Cooperative, No Acute Distress Lungs: Clear to Auscultation, Normal Respiratory Effort, Decreased Breath Sounds (right lung base) Cardiovascular: Irregular Rhythm, Tachycardia (mild) GI/Abdominal Exam: Soft, No Distention Extremities: No Pedal Edema. No: Increased Warmth Skin: Warm, Dry Psy/Mental Status: Alert, Normal Affect Sepsis Event Note - Evaluation Sepsis Screening Result: No Definite Risk - Focused Exam Vital Signs: Vital Signs Temp Pulse Resp BP Pulse Ox 11/06/20 08:39 117 H 96/41 L 11/06/20 08:00 36.2 C 130 H 21 H 92/51 L 96 11/06/20 06:59 113 H 11/06/20 06:00 24 H 121/66 96 11/06/20 04:00 36.0 C L 19 101/50 L 96 11/06/20 02:00 21 H 108/56 L 96 11/06/20 00:00 36.1 C 23 H 93/48 L 96 11/05/20 22:00 26 H 94/44 L 95 - Problem List Review Problem List Initiated/Reviewed/Updated: Yes - My Orders Last 24 Hours: My Active Orders 11/05/20 21:00 Melatonin 9 mg PO BEDTIME 11/06/20 08:47 Transfer Patient (Change bed) [ADT] Routine 11/06/20 08:48 OT Evaluation and Treatment [CONS] Routine PT Evaluation and Treatment [CONS] Routine 11/06/20 09:00 Aspirin [Halfprin] 81 mg PO DAILY Metoprolol Succinate [Toprol XL] 25 mg PO DAILY - Plan Plan:: ASSESSMENT AND PLAN - BILATERAL PNEUMONIA WITH PROBABLE SEPSIS-he has completed adequate antibiotic therapy. Weak but otherwise seems to be doing well and progressing.. -physical therapy HYPOXIC RESPIRATORY FAILURE-secondary to underlying COPD exacerbation and pulmonary infiltrates. He is down to 1 L supplemental oxygen hopefully this can be weaned off in the near future. -Supplemental oxygen as needed ATRIAL FIBRILLATION WITH RAPID VENTRICULAR [id number] score of 5. Heart rate control had improved but is not quite optimized yet. -Cardiac monitoring -Hold lisinopril so we have more room for rate control medications -Metoprolol succinate 25 mg daily -Digoxin daily -Amiodarone 200 mg p.o. twice daily -Apixaban 5 mg p.o. twice daily COPD EXACERBATION-secondary to bilateral pneumonia. No active wheezing. -Nebulizer therapy as needed SYSTOLIC CONGESTIVE HEART FAILURE-echocardiogram shows decreased left ventricular systolic function with estimated ejection fraction of 35 to 30% and severe mitral regurgitation -Volume status appropriate today -Continue beta-shasha -Hold lisinopril with hypotension MAINTENANCE ISSUES -DVT prophylaxis; apixaban -GI prophylaxis; not indicated -[place] catheter; not indicated -Nutrition; 2 g sodium diet DISPOSITION-anticipate discharge to intermediate for restorative physical therapy and Occupational Therapy Andrew Murphy MD
[2020-11-06] MEDS: Metoprolol Succinate 25 MG Tab.ER PO SCH (08:52)
[2020-11-06] MEDS: Lactobacillus Rhamnosus GG (Probiotic) Cap PO SCH ×2 (08:52→20:18)
[2020-11-06] MEDS: Aspirin 81 MG Tab.EC PO SCH (08:52)
[2020-11-06] MEDS: Levothyroxine 25 MCG Tab PO SCH (08:52)
[2020-11-06] MEDS: Amiodarone 200 MG Tab PO SCH ×2 (08:52→20:18)
[2020-11-06] MEDS: Apixaban 5 MG Tab PO SCH ×2 (08:53→20:18)
[2020-11-06] MEDS: Melatonin 3 MG Tab PO SCH (20:19)
[2020-11-06] MEDS: Acetaminophen 325 MG Tab PO PRN (20:19)
[2020-11-06] MEDS: Simvastatin 20 MG Tab PO SCH (20:19)
[2020-11-06] MEDS: Albuterol 0.083% 2.5 MG/3 ML Neb Soln NEB PRN (20:20)
[2020-11-07] MEDS ORDERED: LORazepam 2 MG/ML SDV ONE (00:39)
[2020-11-07] MEDS: LORazepam 2 MG/ML SDV IVPUSH PRN ×3 (00:40→02:43)
[2020-11-07] MEDS ORDERED: Haloperidol Lactate 5 MG/ML SDV IVPUSH PRN (08:06)
--- NOTE | 2020-11-07 09:02 | PCM.PN ---
- General Info Date of Service: 11/07/20 Subjective Update: Overnight the patient had difficulty with an episode of agitation. He was not able to be redirected. He did receive 3 doses of lorazepam to calm his behaviors. He has been sleeping since that time. He is not able to provide any reliable history this morning because he is still quite somnolent. Heart rate has been around 100. He continues to use 1 L of supplemental oxygen. No fevers. - Review of Systems General: Reports: Weakness Neurological: Reports: Confusion - Patient Data Vitals - Most Recent: Last Vital Signs Temp 35.9 C L 11/07/20 04:00 Pulse 102 H 11/06/20 16:00 Resp 24 H 11/07/20 04:00 BP 92/64 11/07/20 04:00 Pulse Ox 93 L 11/07/20 04:00 Weight - Most Recent: 67.404 kg Med Orders - Current: Current Medications Acetaminophen (Tylenol) 650 mg PO Q4H PRN PRN Reason: Pain (Mild 1-3)/fever Last Admin: 11/06/20 20:19 Dose: 650 mg Documented by: Albuterol (Proventil Neb Soln) 2.5 mg NEB Q2H PRN PRN Reason: Shortness Of Breath/wheezing Last Admin: 11/06/20 20:20 Dose: 2.5 mg Documented by: Amiodarone HCl (Cordarone) 200 mg PO BID [facility] Last Admin: 11/06/20 20:18 Dose: 200 mg Documented by: Apixaban (Eliquis) 5 mg PO BID [facility] Last Admin: 11/06/20 20:18 Dose: 5 mg Documented by: Aspirin (Halfprin) 81 mg PO DAILY [facility] Last Admin: 11/06/20 08:52 Dose: 81 mg Documented by: Divalproex Sodium (Depakote Sprinkle) 125 mg PO BIDMEALS [facility] Furosemide (Lasix) 40 mg PO DAILY [facility] Haloperidol Lactate (Haldol) 2.5 mg IVPUSH Q2H PRN PRN Reason: Agitation Lactobacillus Rhamnosus (Culturelle) 1 cap PO BID [facility] Last Admin: 11/06/20 20:18 Dose: 1 cap Documented by: Levothyroxine Sodium (Levothyroxine) 25 mcg PO ACBREAKFAST [facility] Last Admin: 11/06/20 08:52 Dose: 25 mcg Documented by: Melatonin (Melatonin) 9 mg PO BEDTIME [facility] Last Admin: 11/06/20 20:19 Dose: 9 mg Documented by: Metoprolol Succinate (Toprol Xl) 25 mg PO DAILY [facility] Last Admin: 11/06/20 08:52 Dose: 25 mg Documented by: Nicotine (Habitrol) 7 mg TRDERM DAILY [facility] Last Admin: 11/06/20 08:50 Dose: 7 mg Documented by: Ondansetron HCl (Zofran Odt) 4 mg PO Q6H PRN PRN Reason: Nausea able to take PO Oxycodone HCl (Oxycodone) 5 mg PO Q4H PRN PRN Reason: Pain (moderate 4-6) Last Admin: 11/04/20 20:19 Dose: 5 mg Documented by: Polyethylene Glycol (Miralax) 17 gm PO DAILY PRN PRN Reason: Constipation Last Admin: 11/05/20 20:35 Dose: 17 gm Documented by: Simvastatin (Zocor) 40 mg PO BEDTIME [facility] Last Admin: 11/06/20 20:19 Dose: 40 mg Documented by: Sodium Biphosphate/Sodium Phosphate (Fleet Enema) 133 ml RECTAL ONETIME PRN PRN Reason: Constipation Sodium Chloride (Saline Flush) 10 ml FLUSH ASDIRECTED PRN PRN Reason: Keep Vein Open Last Admin: 10/28/20 23:06 Dose: 10 ml Documented by: Discontinued Medications Albuterol/Ipratropium (Duoneb 3.0-0.5 Mg/3 Ml) 3 ml NEB ONETIME ONE Stop: 10/28/20 19:09 Last Admin: 10/28/20 19:25 Dose: 3 ml Documented by: Albuterol/Ipratropium (Duoneb 3.0-0.5 Mg/3 Ml) 3 ml NEB ONETIME ONE Stop: 10/28/20 22:30 Last Admin: 10/28/20 22:32 Dose: 3 ml Documented by: Albuterol/Ipratropium (Duoneb 3.0-0.5 Mg/3 Ml) 3 ml NEB Q2H PRN PRN Reason: Shortness Of Breath/wheezing Last Admin: 11/02/20 10:04 Dose: 3 ml Documented by: Albuterol/Ipratropium (Duoneb 3.0-0.5 Mg/3 Ml) 3 ml NEB QIDRT [facility] Last Admin: 11/06/20 06:59 Dose: 3 ml Documented by: Amiodarone HCl (Cordarone) 150 mg IVPUSH ONETIME ONE Stop: 11/03/20 10:01 Last Admin: 11/03/20 10:11 Dose: 150 mg Documented by: Aspirin (Aspirin) 81 mg PO DAILY [facility] Last Admin: 10/29/20 08:43 Dose: 81 mg Documented by: Aspirin (Ecotrin) 325 mg PO DAILY [facility] Last Admin: 11/05/20 08:15 Dose: 325 mg Documented by: Aspirin (Aspirin) 243 mg PO ONETIME ONE Stop: 10/29/20 11:01 Last Admin: 10/29/20 10:41 Dose: 243 mg Documented by: Bisacodyl (Dulcolax) 10 mg RECTAL ONETIME ONE Stop: 10/31/20 12:01 Last Admin: 10/31/20 12:20 Dose: 10 mg Documented by: Digoxin (Lanoxin) 250 mcg IVPUSH ONETIME ONE Stop: 10/30/20 16:11 Last Admin: 10/30/20 16:27 Dose: 250 mcg Documented by: Digoxin (Lanoxin) 125 mcg PO ONETIME ONE Stop: 11/05/20 09:16 Last Admin: 11/05/20 09:43 Dose: 125 mcg Documented by: Digoxin (Lanoxin) 125 mcg PO ONETIME ONE Stop: 11/06/20 08:01 Last Admin: 11/06/20 09:00 Dose: 125 mcg Documented by: Diltiazem HCl (Cardizem) 30 mg PO Q6H [facility] Stop: 11/02/20 08:00 Last Admin: 11/02/20 03:52 Dose: 30 mg Documented by: Diltiazem HCl (Cardizem Cd) 120 mg PO DAILY [facility] Last Admin: 11/03/20 08:27 Dose: 120 mg Documented by: Divalproex Sodium (Divalproex Sodium) 250 mg PO BIDMEALS [facility] Last Admin: 11/05/20 17:20 Dose: 250 mg Documented by: Doxycycline Hyclate (Vibramycin) 100 mg PO Q12H [facility] Stop: 11/04/20 23:59 Last Admin: 11/04/20 20:19 Dose: 100 mg Documented by: Enoxaparin Sodium (Lovenox) 40 mg SUBCUT Q24H [facility] Last Admin: 11/01/20 16:40 Dose: 40 mg Documented by: Furosemide (Lasix) 20 mg IVPUSH ONETIME ONE Stop: 10/29/20 02:40 Last Admin: 10/29/20 02:51 Dose: 20 mg Documented by: Furosemide (Lasix) 40 mg PO DAILY [facility] Last Admin: 10/30/20 08:02 Dose: 40 mg Documented by: Furosemide (Lasix) 40 mg IVPUSH NOW ONE Stop: 10/30/20 16:11 Last Admin: 10/30/20 16:32 Dose: 40 mg Documented by: Furosemide (Lasix) 40 mg IVPUSH NOW ONE Stop: 11/01/20 08:26 Last Admin: 11/01/20 10:19 Dose: 40 mg Documented by: Furosemide (Lasix) 40 mg IVPUSH NOW ONE Stop: 11/02/20 13:01 Last Admin: 11/02/20 13:15 Dose: 40 mg Documented by: Furosemide (Lasix) 20 mg IVPUSH NOW ONE Stop: 11/04/20 14:01 Last Admin: 11/04/20 14:14 Dose: Not Given Documented by: Haloperidol Lactate (Haldol) 1 mg IVPUSH Q2H PRN PRN Reason: Agitation Last Admin: 11/03/20 03:21 Dose: 1 mg Documented by: Haloperidol Lactate (Haldol) 2 mg IVPUSH ONETIME ONE Stop: 11/02/20 05:02 Last Admin: 11/02/20 04:50 Dose: 2 mg Documented by: Haloperidol Lactate (Haldol) 2 mg IVPUSH Q2H PRN PRN Reason: Agitation Last Admin: 11/04/20 20:29 Dose: 2 mg Documented by: Ceftriaxone Sodium 1 gm/ (Sodium Chloride) 50 mls @ 100 mls/hr IV ONETIME ONE Stop: 10/28/20 19:58 Last Admin: 10/28/20 20:24 Dose: 100 mls/hr Documented by: Sodium Chloride (Normal Saline) 1,000 mls @ 1,000 mls/hr IV BOLUS ONE; Protocol Stop: 10/28/20 20:58 Last Admin: 10/28/20 20:18 Dose: 1,000 mls/hr Documented by: Vancomycin HCl 1 gm/ Sodium (Chloride) 250 mls @ 167 mls/hr IV STAT ONE Stop: 10/28/20 21:28 Last Admin: 10/28/20 20:52 Dose: 167 mls/hr Documented by: Ceftriaxone Sodium 1 gm/ (Sodium Chloride) 50 mls @ 100 mls/hr IV Q24H [facility] Last Admin: 11/01/20 20:01 Dose: 100 mls/hr Documented by: Doxycycline Hyclate 100 mg/ (Sodium Chloride) 100 mls @ 100 mls/hr IV Q12H [facility] Last Admin: 11/02/20 10:05 Dose: 100 mls/hr Documented by: Amiodarone HCl 450 mg/ (Dextrose/Water) 250 mls @ 33.333 mls/hr IV ASDIRECTED [facility]; Protocol Last Admin: 11/03/20 17:34 Dose: 1 mg/min, 33.333 mls/hr Documented by: Sodium Chloride (Normal Saline) 500 mls @ 999 mls/hr IV .BOLUS ONE Stop: 11/04/20 14:15 Last Admin: 11/04/20 13:50 Dose: 999 mls/hr Documented by: Lisinopril (Prinivil) 2.5 mg PO DAILY [facility] Last Admin: 11/04/20 09:33 Dose: 2.5 mg Documented by: Lorazepam (Ativan) Confirm Administered Dose 2 mg .ROUTE .STK-MED ONE Stop: 11/07/20 00:40 Last Admin: 11/07/20 01:45 Dose: Not Given Documented by: Lorazepam (Ativan) 1 mg IVPUSH Q1H PRN PRN Reason: Agitation Last Admin: 11/07/20 02:43 Dose: 1 mg Documented by: Melatonin (Melatonin) 9 mg PO BEDTIME PRN PRN Reason: Insomnia Last Admin: 11/04/20 20:19 Dose: 9 mg Documented by: Methylprednisolone Sodium Succinate (Solu-Medrol) 125 mg IVPUSH ONETIME ONE Stop: 10/28/20 22:56 Last Admin: 10/28/20 23:06 Dose: 125 mg Documented by: Methylprednisolone Sodium Succinate (Solu-Medrol) 40 mg IVPUSH Q6H [facility] Last Admin: 10/31/20 03:39 Dose: 40 mg Documented by: Metoprolol Tartrate (Lopressor) 25 mg PO ONETIME ONE Stop: 10/29/20 02:40 Last Admin: 10/29/20 02:50 Dose: 25 mg Documented by: Metoprolol Tartrate (Lopressor) 25 mg PO BID [facility] Last Admin: 10/29/20 10:42 Dose: 25 mg Documented by: Metoprolol Tartrate (Lopressor) 12.5 mg PO BID [facility] Last Admin: 10/30/20 08:03 Dose: 12.5 mg Documented by: Metoprolol Tartrate (Lopressor) 25 mg PO BID [facility] Last Admin: 11/03/20 08:22 Dose: 25 mg Documented by: Metoprolol Tartrate (Lopressor) 12.5 mg PO Q12H [facility] Last Admin: 11/04/20 09:30 Dose: 12.5 mg Documented by: Metoprolol Tartrate (Lopressor) 12.5 mg PO BID [facility] Last Admin: 11/05/20 20:10 Dose: 12.5 mg Documented by: Morphine Sulfate (Morphine) 2 mg IVPUSH Q2H PRN PRN Reason: Pain (severe 7-10) Last Admin: 11/02/20 03:43 Dose: 2 mg Documented by: Potassium Chloride (Klor-Con M20) 40 meq PO ONETIME ONE Stop: 10/28/20 19:56 Last Admin: 10/28/20 20:17 Dose: 40 meq Documented by: Potassium Chloride (Klor-Con M20) 40 meq PO ONETIME ONE Stop: 10/30/20 08:31 Last Admin: 10/30/20 09:25 Dose: 40 meq Documented by: Potassium Chloride (Klor-Con M20) 40 meq PO ONETIME ONE Stop: 10/30/20 13:01 Last Admin: 10/30/20 14:28 Dose: 40 meq Documented by: Prednisone (Prednisone) 40 mg PO DAILY [facility] Last Admin: 11/03/20 08:24 Dose: 40 mg Documented by: Prednisone (Prednisone) 40 mg PO DAILY [facility] Last Admin: 11/02/20 09:08 Dose: 40 mg Documented by: Simvastatin (Zocor) 20 mg PO ONETIME ONE Stop: 10/29/20 00:53 Last Admin: 10/29/20 02:24 Dose: Not Given Documented by: Simvastatin (Zocor) 20 mg PO ONETIME ONE Stop: 10/29/20 09:01 Last Admin: 10/29/20 08:43 Dose: 20 mg Documented by: Simvastatin (Zocor) 20 mg PO BEDTIME ONE Stop: 10/29/20 21:01 Last Admin: 10/29/20 20:08 Dose: 20 mg Documented by: - Exam Quality Assessment: Supplemental Oxygen General: No Acute Distress, Sedated. No: Alert Lungs: Decreased Breath Sounds (mild right lung base), Rhonchi (mild upper resp ). No: Normal Respiratory Effort (mild tachypnea ) Cardiovascular: Irregular Rhythm, Tachycardia GI/Abdominal Exam: Normal Bowel Sounds, Soft, No Distention Extremities: No Pedal Edema. No: Increased Warmth Skin: Warm, Dry Psy/Mental Status: No: Alert, Agitated Sepsis Event Note - Evaluation Sepsis Screening Result: Sepsis Risk - Focused Exam Vital Signs: Vital Signs Temp Resp BP Pulse Ox 11/07/20 04:00 35.9 C L 24 H 92/64 93 L 11/07/20 00:00 36.6 C 26 H 96/62 99 - Problem List Review Problem List Initiated/Reviewed/Updated: Yes - My Orders Last 24 Hours: My Active Orders 11/06/20 08:47 Transfer Patient (Change bed) [ADT] Routine 11/06/20 08:48 OT Evaluation and Treatment [CONS] Routine PT Evaluation and Treatment [CONS] Routine 11/06/20 09:00 Aspirin [Halfprin] 81 mg PO DAILY Metoprolol Succinate [Toprol XL] 25 mg PO DAILY 11/07/20 08:06 Haloperidol Lactate [Haldol] 2.5 mg IVPUSH Q2H PRN 11/07/20 08:30 Divalproex Sodium [Depakote Sprinkle] 125 mg PO BIDMEALS 11/07/20 09:00 Furosemide [Lasix] 40 mg PO DAILY - Plan Plan:: ASSESSMENT AND PLAN - HYPERACTIVE DELIRIUM-he had been doing well up until last night. Somnolent today after pharmacotherapy overnight. -Restart low-dose Depakote twice daily -Continue melatonin -Haldol for severe agitation BILATERAL PNEUMONIA WITH PROBABLE SEPSIS-complicated by acute respiratory failure with hypoxia. He has completed adequate antibiotic therapy. Weak but otherwise seems to be doing well and progressing. Still requiring 1 L of oxygen. -physical therapy -Supplement oxygen as needed ATRIAL FIBRILLATION WITH RAPID VENTRICULAR [id number] score of 5. Heart rate control had improved but is not quite optimized yet. -Cardiac monitoring -Hold lisinopril so we have more room for rate control medications -Metoprolol succinate 25 mg daily -Digoxin daily -Amiodarone 200 mg p.o. twice daily -Apixaban 5 mg p.o. twice daily COPD EXACERBATION-secondary to bilateral pneumonia. No active wheezing. -Nebulizer therapy as needed SYSTOLIC CONGESTIVE HEART FAILURE-echocardiogram shows decreased left ventricular systolic function with estimated ejection fraction of 35 to 30% and severe mitral regurgitation -Volume status appropriate today -Continue beta-shasha -Hold lisinopril with hypotension MAINTENANCE ISSUES -DVT prophylaxis; apixaban -GI prophylaxis; not indicated -[place] catheter; not indicated -Nutrition; 2 g sodium diet DISPOSITION-anticipate discharge to detention for restorative physical therapy and Occupational Therapy Andrew Murphy MD
[2020-11-07] MEDS: Nicotine 7 MG/24 Hr Patch TRDERM SCH (09:48)
[2020-11-07] MEDS: Divalproex Sodium Delayed-Release 125 MG Cap.Sprink PO SCH ×2 (10:01→17:41)
[2020-11-07] MEDS: Aspirin 81 MG Tab.EC PO SCH (16:07)
[2020-11-07] MEDS: Lactobacillus Rhamnosus GG (Probiotic) Cap PO SCH ×3 (16:07→20:16)
[2020-11-07] MEDS: Amiodarone 200 MG Tab PO SCH ×2 (16:07→20:16)
[2020-11-07] MEDS: Levothyroxine 25 MCG Tab PO SCH (16:07)
[2020-11-07] MEDS: Apixaban 5 MG Tab PO SCH ×2 (16:08→20:16)
[2020-11-07] MEDS: Digoxin 125 MCG Tab PO SCH (16:08)
[2020-11-07] MEDS: Furosemide 40 MG Tab PO SCH (16:08)
[2020-11-07] MEDS: Metoprolol Succinate 25 MG Tab.ER PO SCH (16:09)
[2020-11-07] MEDS: Simvastatin 20 MG Tab PO SCH (20:16)
[2020-11-07] MEDS: Melatonin 3 MG Tab PO SCH (20:16)
[2020-11-08] MEDS: Divalproex Sodium Delayed-Release 125 MG Cap.Sprink PO SCH ×2 (08:59→17:32)
[2020-11-08] MEDS: Furosemide 40 MG Tab PO SCH (08:59)
[2020-11-08] MEDS: Amiodarone 200 MG Tab PO SCH ×2 (08:59→20:45)
[2020-11-08] MEDS: Aspirin 81 MG Tab.EC PO SCH (08:59)
[2020-11-08] MEDS: Nicotine 7 MG/24 Hr Patch TRDERM SCH (08:59)
[2020-11-08] MEDS: Lactobacillus Rhamnosus GG (Probiotic) Cap PO SCH ×2 (08:59→20:45)
[2020-11-08] MEDS: Apixaban 5 MG Tab PO SCH (08:59)
[2020-11-08] MEDS: Levothyroxine 25 MCG Tab PO SCH (09:00)
[2020-11-08] MEDS: Metoprolol Succinate 25 MG Tab.ER PO SCH (09:02)
--- NOTE | 2020-11-08 10:57 | PCM.PN ---
- General Info Date of Service: 11/08/20 Subjective Update: No acute events overnight. No behavior issues overnight. He has done well since his transfer up from the intensive care unit. He had an excellent session with physical and occupational therapy this morning. He thinks his shortness of breath is improving. Appetite has been good. He does remain weak but is making steady progress towards improvement. He does continue on 1 L of oxygen but his oxygen saturations have been in the mid to upper 90s. He has not had any fevers. He does have a mild loose cough. Functional Status: Reports: Pain Controlled, Tolerating Diet - Review of Systems General: Reports: Weakness - Patient Data Vitals - Most Recent: Last Vital Signs Temp 35.3 C L 11/08/20 07:00 Pulse 97 11/08/20 09:02 Resp 18 11/08/20 07:00 BP 118/98 H 11/08/20 09:02 Pulse Ox 100 11/08/20 07:00 Weight - Most Recent: 67.404 kg I&O - Last 24 Hours: Intake & Output 11/07/20 11/08/20 11/08/20 22:59 06:59 14:59 Intake Total 400 Output Total 100 200 Balance -100 200 Med Orders - Current: Current Medications Acetaminophen (Tylenol) 650 mg PO Q4H PRN PRN Reason: Pain (Mild 1-3)/fever Last Admin: 11/06/20 20:19 Dose: 650 mg Documented by: Albuterol (Proventil Neb Soln) 2.5 mg NEB Q2H PRN PRN Reason: Shortness Of Breath/wheezing Last Admin: 11/06/20 20:20 Dose: 2.5 mg Documented by: Amiodarone HCl (Cordarone) 200 mg PO BID [facility] Last Admin: 11/08/20 08:59 Dose: 200 mg Documented by: Aspirin (Halfprin) 81 mg PO DAILY [facility] Last Admin: 11/08/20 08:59 Dose: 81 mg Documented by: Digoxin (Lanoxin) 250 mcg PO DAILY@1300 [facility] Last Admin: 11/07/20 16:08 Dose: 250 mcg Documented by: Divalproex Sodium (Depakote Sprinkle) 125 mg PO BIDMEALS [facility] Last Admin: 11/08/20 08:59 Dose: 125 mg Documented by: Furosemide (Lasix) 40 mg PO DAILY [facility] Last Admin: 11/08/20 08:59 Dose: 40 mg Documented by: Haloperidol Lactate (Haldol) 2.5 mg IVPUSH Q2H PRN PRN Reason: Agitation Last Admin: 11/07/20 10:19 Dose: 2.5 mg Documented by: Lactobacillus Rhamnosus (Culturelle) 1 cap PO BID [facility] Last Admin: 11/08/20 08:59 Dose: 1 cap Documented by: Levothyroxine Sodium (Levothyroxine) 25 mcg PO ACBREAKFAST [facility] Last Admin: 11/08/20 09:00 Dose: 25 mcg Documented by: Melatonin (Melatonin) 9 mg PO BEDTIME [facility] Last Admin: 11/07/20 20:16 Dose: 9 mg Documented by: Metoprolol Succinate (Toprol Xl) 25 mg PO DAILY [facility] Last Admin: 11/08/20 09:02 Dose: 25 mg Documented by: Nicotine (Habitrol) 7 mg TRDERM DAILY [facility] Last Admin: 11/08/20 08:59 Dose: 7 mg Documented by: Ondansetron HCl (Zofran Odt) 4 mg PO Q6H PRN PRN Reason: Nausea able to take PO Oxycodone HCl (Oxycodone) 5 mg PO Q4H PRN PRN Reason: Pain (moderate 4-6) Last Admin: 11/04/20 20:19 Dose: 5 mg Documented by: Polyethylene Glycol (Miralax) 17 gm PO DAILY PRN PRN Reason: Constipation Last Admin: 11/05/20 20:35 Dose: 17 gm Documented by: Simvastatin (Zocor) 40 mg PO BEDTIME [facility] Last Admin: 11/07/20 20:16 Dose: 40 mg Documented by: Sodium Biphosphate/Sodium Phosphate (Fleet Enema) 133 ml RECTAL ONETIME PRN PRN Reason: Constipation Sodium Chloride (Saline Flush) 10 ml FLUSH ASDIRECTED PRN PRN Reason: Keep Vein Open Last Admin: 10/28/20 23:06 Dose: 10 ml Documented by: Discontinued Medications Albuterol/Ipratropium (Duoneb 3.0-0.5 Mg/3 Ml) 3 ml NEB ONETIME ONE Stop: 10/28/20 19:09 Last Admin: 10/28/20 19:25 Dose: 3 ml Documented by: Albuterol/Ipratropium (Duoneb 3.0-0.5 Mg/3 Ml) 3 ml NEB ONETIME ONE Stop: 10/28/20 22:30 Last Admin: 10/28/20 22:32 Dose: 3 ml Documented by: Albuterol/Ipratropium (Duoneb 3.0-0.5 Mg/3 Ml) 3 ml NEB Q2H PRN PRN Reason: Shortness Of Breath/wheezing Last Admin: 11/02/20 10:04 Dose: 3 ml Documented by: Albuterol/Ipratropium (Duoneb 3.0-0.5 Mg/3 Ml) 3 ml NEB QIDRT [facility] Last Admin: 11/06/20 06:59 Dose: 3 ml Documented by: Amiodarone HCl (Cordarone) 150 mg IVPUSH ONETIME ONE Stop: 11/03/20 10:01 Last Admin: 11/03/20 10:11 Dose: 150 mg Documented by: Apixaban (Eliquis) 5 mg PO BID [facility] Last Admin: 11/08/20 08:59 Dose: 5 mg Documented by: Aspirin (Aspirin) 81 mg PO DAILY [facility] Last Admin: 10/29/20 08:43 Dose: 81 mg Documented by: Aspirin (Ecotrin) 325 mg PO DAILY [facility] Last Admin: 11/05/20 08:15 Dose: 325 mg Documented by: Aspirin (Aspirin) 243 mg PO ONETIME ONE Stop: 10/29/20 11:01 Last Admin: 10/29/20 10:41 Dose: 243 mg Documented by: Bisacodyl (Dulcolax) 10 mg RECTAL ONETIME ONE Stop: 10/31/20 12:01 Last Admin: 10/31/20 12:20 Dose: 10 mg Documented by: Digoxin (Lanoxin) 250 mcg IVPUSH ONETIME ONE Stop: 10/30/20 16:11 Last Admin: 10/30/20 16:27 Dose: 250 mcg Documented by: Digoxin (Lanoxin) 125 mcg PO ONETIME ONE Stop: 11/05/20 09:16 Last Admin: 11/05/20 09:43 Dose: 125 mcg Documented by: Digoxin (Lanoxin) 125 mcg PO ONETIME ONE Stop: 11/06/20 08:01 Last Admin: 11/06/20 09:00 Dose: 125 mcg Documented by: Diltiazem HCl (Cardizem) 30 mg PO Q6H [facility] Stop: 11/02/20 08:00 Last Admin: 11/02/20 03:52 Dose: 30 mg Documented by: Diltiazem HCl (Cardizem Cd) 120 mg PO DAILY [facility] Last Admin: 11/03/20 08:27 Dose: 120 mg Documented by: Divalproex Sodium (Divalproex Sodium) 250 mg PO BIDMEALS [facility] Last Admin: 11/05/20 17:20 Dose: 250 mg Documented by: Doxycycline Hyclate (Vibramycin) 100 mg PO Q12H [facility] Stop: 11/04/20 23:59 Last Admin: 11/04/20 20:19 Dose: 100 mg Documented by: Enoxaparin Sodium (Lovenox) 40 mg SUBCUT Q24H [facility] Last Admin: 11/01/20 16:40 Dose: 40 mg Documented by: Furosemide (Lasix) 20 mg IVPUSH ONETIME ONE Stop: 10/29/20 02:40 Last Admin: 10/29/20 02:51 Dose: 20 mg Documented by: Furosemide (Lasix) 40 mg PO DAILY [facility] Last Admin: 10/30/20 08:02 Dose: 40 mg Documented by: Furosemide (Lasix) 40 mg IVPUSH NOW ONE Stop: 10/30/20 16:11 Last Admin: 10/30/20 16:32 Dose: 40 mg Documented by: Furosemide (Lasix) 40 mg IVPUSH NOW ONE Stop: 11/01/20 08:26 Last Admin: 11/01/20 10:19 Dose: 40 mg Documented by: Furosemide (Lasix) 40 mg IVPUSH NOW ONE Stop: 11/02/20 13:01 Last Admin: 11/02/20 13:15 Dose: 40 mg Documented by: Furosemide (Lasix) 20 mg IVPUSH NOW ONE Stop: 11/04/20 14:01 Last Admin: 11/04/20 14:14 Dose: Not Given Documented by: Haloperidol Lactate (Haldol) 1 mg IVPUSH Q2H PRN PRN Reason: Agitation Last Admin: 11/03/20 03:21 Dose: 1 mg Documented by: Haloperidol Lactate (Haldol) 2 mg IVPUSH ONETIME ONE Stop: 11/02/20 05:02 Last Admin: 11/02/20 04:50 Dose: 2 mg Documented by: Haloperidol Lactate (Haldol) 2 mg IVPUSH Q2H PRN PRN Reason: Agitation Last Admin: 11/04/20 20:29 Dose: 2 mg Documented by: Ceftriaxone Sodium 1 gm/ (Sodium Chloride) 50 mls @ 100 mls/hr IV ONETIME ONE Stop: 10/28/20 19:58 Last Admin: 10/28/20 20:24 Dose: 100 mls/hr Documented by: Sodium Chloride (Normal Saline) 1,000 mls @ 1,000 mls/hr IV BOLUS ONE; Protocol Stop: 10/28/20 20:58 Last Admin: 10/28/20 20:18 Dose: 1,000 mls/hr Documented by: Vancomycin HCl 1 gm/ Sodium (Chloride) 250 mls @ 167 mls/hr IV STAT ONE Stop: 10/28/20 21:28 Last Admin: 10/28/20 20:52 Dose: 167 mls/hr Documented by: Ceftriaxone Sodium 1 gm/ (Sodium Chloride) 50 mls @ 100 mls/hr IV Q24H [facility] Last Admin: 11/01/20 20:01 Dose: 100 mls/hr Documented by: Doxycycline Hyclate 100 mg/ (Sodium Chloride) 100 mls @ 100 mls/hr IV Q12H [facility] Last Admin: 11/02/20 10:05 Dose: 100 mls/hr Documented by: Amiodarone HCl 450 mg/ (Dextrose/Water) 250 mls @ 33.333 mls/hr IV ASDIRECTED [facility]; Protocol Last Admin: 11/03/20 17:34 Dose: 1 mg/min, 33.333 mls/hr Documented by: Sodium Chloride (Normal Saline) 500 mls @ 999 mls/hr IV .BOLUS ONE Stop: 11/04/20 14:15 Last Admin: 11/04/20 13:50 Dose: 999 mls/hr Documented by: Lisinopril (Prinivil) 2.5 mg PO DAILY [facility] Last Admin: 11/04/20 09:33 Dose: 2.5 mg Documented by: Lorazepam (Ativan) Confirm Administered Dose 2 mg .ROUTE .STK-MED ONE Stop: 11/07/20 00:40 Last Admin: 11/07/20 01:45 Dose: Not Given Documented by: Lorazepam (Ativan) 1 mg IVPUSH Q1H PRN PRN Reason: Agitation Last Admin: 11/07/20 02:43 Dose: 1 mg Documented by: Melatonin (Melatonin) 9 mg PO BEDTIME PRN PRN Reason: Insomnia Last Admin: 11/04/20 20:19 Dose: 9 mg Documented by: Methylprednisolone Sodium Succinate (Solu-Medrol) 125 mg IVPUSH ONETIME ONE Stop: 10/28/20 22:56 Last Admin: 10/28/20 23:06 Dose: 125 mg Documented by: Methylprednisolone Sodium Succinate (Solu-Medrol) 40 mg IVPUSH Q6H [facility] Last Admin: 10/31/20 03:39 Dose: 40 mg Documented by: Metoprolol Tartrate (Lopressor) 25 mg PO ONETIME ONE Stop: 10/29/20 02:40 Last Admin: 10/29/20 02:50 Dose: 25 mg Documented by: Metoprolol Tartrate (Lopressor) 25 mg PO BID [facility] Last Admin: 10/29/20 10:42 Dose: 25 mg Documented by: Metoprolol Tartrate (Lopressor) 12.5 mg PO BID [facility] Last Admin: 10/30/20 08:03 Dose: 12.5 mg Documented by: Metoprolol Tartrate (Lopressor) 25 mg PO BID [facility] Last Admin: 11/03/20 08:22 Dose: 25 mg Documented by: Metoprolol Tartrate (Lopressor) 12.5 mg PO Q12H [facility] Last Admin: 11/04/20 09:30 Dose: 12.5 mg Documented by: Metoprolol Tartrate (Lopressor) 12.5 mg PO BID [facility] Last Admin: 11/05/20 20:10 Dose: 12.5 mg Documented by: Morphine Sulfate (Morphine) 2 mg IVPUSH Q2H PRN PRN Reason: Pain (severe 7-10) Last Admin: 11/02/20 03:43 Dose: 2 mg Documented by: Potassium Chloride (Klor-Con M20) 40 meq PO ONETIME ONE Stop: 10/28/20 19:56 Last Admin: 10/28/20 20:17 Dose: 40 meq Documented by: Potassium Chloride (Klor-Con M20) 40 meq PO ONETIME ONE Stop: 10/30/20 08:31 Last Admin: 10/30/20 09:25 Dose: 40 meq Documented by: Potassium Chloride (Klor-Con M20) 40 meq PO ONETIME ONE Stop: 10/30/20 13:01 Last Admin: 10/30/20 14:28 Dose: 40 meq Documented by: Prednisone (Prednisone) 40 mg PO DAILY [facility] Last Admin: 11/03/20 08:24 Dose: 40 mg Documented by: Prednisone (Prednisone) 40 mg PO DAILY [facility] Last Admin: 11/02/20 09:08 Dose: 40 mg Documented by: Simvastatin (Zocor) 20 mg PO ONETIME ONE Stop: 10/29/20 00:53 Last Admin: 10/29/20 02:24 Dose: Not Given Documented by: Simvastatin (Zocor) 20 mg PO ONETIME ONE Stop: 10/29/20 09:01 Last Admin: 10/29/20 08:43 Dose: 20 mg Documented by: Simvastatin (Zocor) 20 mg PO BEDTIME ONE Stop: 10/29/20 21:01 Last Admin: 10/29/20 20:08 Dose: 20 mg Documented by: - Exam Quality Assessment: Supplemental Oxygen General: Alert, Oriented, Cooperative, No Acute Distress (sleepy) Lungs: Normal Respiratory Effort, Decreased Breath Sounds (right lung base) Cardiovascular: Regular Rate, Irregular Rhythm GI/Abdominal Exam: Soft, No Distention Extremities: No Pedal Edema. No: Increased Warmth Skin: Warm, Dry, Ecchymosis (both right and left lower lateral abdomen and lower back. Also right medial thigh ) Psy/Mental Status: Alert, Normal Affect Sepsis Event Note - Evaluation Sepsis Screening Result: Sepsis Risk - Focused Exam Vital Signs: Vital Signs Temp Pulse Pulse Resp BP BP Pulse Ox 11/08/20 09:02 97 118/98 H 11/08/20 07:00 35.3 C L 97 18 118/98 H 100 11/08/20 03:28 35.9 C L 108 H 16 123/55 L 97 - Problem List Review Problem List Initiated/Reviewed/Updated: Yes - My Orders Last 24 Hours: My Active Orders 11/07/20 13:00 Digoxin [Lanoxin] 250 mcg PO DAILY@1300 11/08/20 10:25 Discontinue Telemetry Monitoring [Cardiac Monitoring Discontinue] [RC] Click to Edit 11/09/20 05:00 CBC W/O DIFF,HEMOGRAM [HEME] Timed (1) - Plan Plan:: ASSESSMENT AND PLAN - HYPERACTIVE DELIRIUM-he has done well since his transfer up from the intensive care unit. No behavior issues overnight. -Continue low-dose Depakote twice daily today, discontinue tomorrow -Continue melatonin -Haldol for severe agitation BILATERAL PNEUMONIA WITH PROBABLE SEPSIS-complicated by acute respiratory failure with hypoxia. He has completed adequate antibiotic therapy. Weak but otherwise seems to be doing well and progressing. Still requiring 1 L of oxygen. -physical therapy -Supplement oxygen as needed ATRIAL FIBRILLATION WITH RAPID VENTRICULAR [id number] score of 5. Heart rate control has improved significantly. -Cardiac monitoring -Hold lisinopril so we have more room for rate control medications -Metoprolol succinate 25 mg daily -Digoxin daily -Amiodarone 200 mg p.o. twice daily -Holding apixaban as below Bilateral lower back ecchymoses-moderate bruises with small hematomas noted on both sides of his lower back. Hemoglobin level has been stable. -Hold apixaban COPD EXACERBATION-secondary to bilateral pneumonia. No active wheezing. -Nebulizer therapy as needed SYSTOLIC CONGESTIVE HEART FAILURE-echocardiogram shows decreased left ventricular systolic function with estimated ejection fraction of 35 to 30% and severe mitral regurgitation -Volume status appropriate today -Continue beta-shasha -Hold lisinopril with hypotension MAINTENANCE ISSUES -DVT prophylaxis; apixaban on hold -GI prophylaxis; not indicated -[place] catheter; not indicated -Nutrition; 2 g sodium diet DISPOSITION-anticipate discharge to [facility] for restorative physical therapy and Occupational Therapy. He should be ready for discharge tomorrow if he is stable overnight Andrew Murphy MD
[2020-11-08] MEDS: Digoxin 125 MCG Tab PO SCH (12:36)
[2020-11-08] MEDS: Simvastatin 20 MG Tab PO SCH (20:45)
[2020-11-08] MEDS: Melatonin 3 MG Tab PO SCH (20:45)
[2020-11-09] MEDS: Acetaminophen 325 MG Tab PO PRN (02:18)
[2020-11-09] MEDS: Furosemide 40 MG Tab PO SCH (09:59)
[2020-11-09] MEDS: Aspirin 81 MG Tab.EC PO SCH (09:59)
[2020-11-09] MEDS: Divalproex Sodium Delayed-Release 125 MG Cap.Sprink PO SCH (09:59)
[2020-11-09] MEDS: Nicotine 7 MG/24 Hr Patch TRDERM SCH (10:00)
[2020-11-09] MEDS: Lactobacillus Rhamnosus GG (Probiotic) Cap PO SCH (10:00)
[2020-11-09] MEDS: Levothyroxine 25 MCG Tab PO SCH (10:01)
[2020-11-09] MEDS: Amiodarone 200 MG Tab PO SCH (10:02)
[2020-11-09] MEDS: Metoprolol Succinate 25 MG Tab.ER PO SCH (10:04)
--- NOTE | 2020-11-09 10:54 | PCM.DCSUM1 ---
Discharge Summary - Hospital Course Brief History: 85-year-old male with history of tobacco dependence, chronic systolic heart failure and COPD who presented with shortness of breath and weakness. He was admitted for management of community-acquired pneumonia with hypoxic respiratory failure and sepsis. Diagnosis: Stroke: No - Discharge Data Discharge Date: 11/09/20 Discharge Disposition: DC/Tfer to SNF 03 Condition: Good - Referral to Home Health Primary Care Physician: PCP None - Discharge Diagnosis/Problem(s) (1) Community acquired pneumonia SNOMED Code(s): 824108872 ICD Code: J18.9 - PNEUMONIA, UNSPECIFIED ORGANISM Status: Acute Priority: High Current Visit: Yes Onset Date: ~10/26/20 Qualifiers: Laterality: right Lung location: lower lobe of lung Qualified Code(s): J18.9 - Pneumonia, unspecified organism (2) Sepsis SNOMED Code(s): 38466517 ICD Code: A41.9 - SEPSIS, UNSPECIFIED ORGANISM Status: Acute Priority: High Current Visit: Yes Onset Date: Unknown Qualifiers: Sepsis type: sepsis due to unspecified organism Sepsis acute organ dysfunction status: with acute organ dysfunction Severe sepsis acute organ dysfunction type: acute respiratory failure Acute respiratory failure type: with hypoxia Severe sepsis shock status: without septic shock Qualified Code(s): A41.9 - Sepsis, unspecified organism; R65.20 - Severe sepsis without septic shock; J96.01 - Acute respiratory failure with hypoxia (3) Acute respiratory failure with hypoxia SNOMED Code(s): 71048410, 825903296 ICD Code: J96.01 - ACUTE RESPIRATORY FAILURE WITH HYPOXIA Status: Acute Current Visit: Yes (4) Systolic congestive heart failure SNOMED Code(s): 30112575, 495665985 ICD Code: I50.20 - UNSPECIFIED SYSTOLIC (CONGESTIVE) HEART FAILURE Status: Acute Current Visit: Yes Qualifiers: Heart failure chronicity: acute on chronic Qualified Code(s): I50.23 - Acute on chronic systolic (congestive) heart failure (5) Atrial fibrillation with rapid ventricular response SNOMED Code(s): 763665216320387 ICD Code: I48.91 - UNSPECIFIED ATRIAL FIBRILLATION Status: Acute Priority: High Current Visit: Yes Onset Date: Unknown (6) Hypokalemia SNOMED Code(s): 20498681 ICD Code: E87.6 - HYPOKALEMIA Status: Acute Priority: High Current Visit: Yes Onset Date: Unknown Problem Details: Patient given KCl in the ED (7) Acute urinary retention SNOMED Code(s): 986250973 ICD Code: R33.8 - OTHER RETENTION OF URINE Status: Acute Current Visit: Yes (8) Tobacco use disorder, continuous SNOMED Code(s): 220418101 ICD Code: F17.209 - NICOTINE DEPENDENCE, UNSP, W UNSP NICOTINE-INDUCED DISORDERS Status: Chronic Priority: Medium Current Visit: Yes Onset Date: Unknown - Patient Summary/Data Consults: Consultations 11/06/20 08:48 OT Evaluation and Treatment [CONS] Routine Please Evaluate and Treat. OT Reason for Consult: ADL's Pending Discharge: No Discharge Disposition: [facility] Facility This query below is only for informational purposes and is not editable. Admission Diagnosis/Problem: Sepsis PT Evaluation and Treatment [CONS] Routine Please Evaluate and Treat. PT Reason for Consult: Strengthening Pending Discharge: No Discharge Disposition: [facility] Facility This query below is only for informational purposes and is not editable. Admission Diagnosis/Problem: Sepsis Hospital Course: New presented to the emergency room with cough, shortness of breath and weakness. Work-up in the emergency room suggested right lower lobe pneumonia complicated by acute respiratory failure with hypoxia as well as sepsis. He was tachycardic along with the respiratory failure and also had an elevated lactic acid. He was started on antibiotic therapy with ceftriaxone and doxycycline. Eleanor tam received IV fluid challenges. He was admitted to the intensive care unit for further management. Further complicating his pneumonia was atrial fibrillation with a rapid ventricular response. Initially this did respond to IV fluids provided in the emergency room but then is rate controlled declined over the next 24 hours. His sepsis did respond to IV fluids and initiation of antibiotics. Initially because of low blood pressures digoxin was used but with only minimal improvement. Once his blood pressures did improve further diltiazem was trialed along with his metoprolol. Over the first couple of days we did see improvement in his respiratory status. He did require supplemental oxygen but with slowly decreasing amounts. Unfortunately the patient developed a hyperactive delirium while in the intensive care unit. He did require doses of Haldol as well as initiation of Depakote. There was probably some contribution from the steroids which were being used to manage an exacerbation of COPD with wheezing noted during the early part of the hospital stay. Over the next few days we saw persistent but improved hyperactive delirium. His respiratory status continued its slow trend towards improvement. Atrial fibrillation control remained suboptimal with some tachycardia though we did start to see some improvement in his rate control. Borderline low blood pressures limited medication trials and eventually he was transitioned to amiodarone. He received the IV loading dose followed by a transition to oral amiodarone. Around this time he had completed 8 days of antibiotic therapy and antibiotics were discontinued. We had stopped the steroids after 5 days. His hyperactive delirium did seem to be improving. He remained quite weak and was working with physical therapy. Over the last few days of the hospital stay we did see a more steady trend towards improvement. We have been able to wean him off supplemental oxygen. His heart rate control has improved dramatically and he is now on a combination of amiodarone and metoprolol. His blood pressures have been stable with these 2 medications. He has not been having any fevers. Earlier in the hospital stay he had been started on apixaban with an elevated CHADSS-Vasc score. He developed bruising as well as small hematomas in the lower portion of both lower back/lower abdominal areas. We elected to discontinue the apixaban and plan to hold it for about 1 week but do plan to initiate systemic anticoagulation during the middle of next week.. He does continue to be weak and would benefit from subacute rehab. The day before hospital discharge we noted ongoing difficulty passing more than small amounts of urine. A bladder scan revealed nearly 1 L of urine in the bladder. A West catheter was placed for acute urinary retention. The plan is for this to remain in place for about 10 days. He will be on tamsulosin. Hopefully we can undertake a trial of voiding at around 10 days. - Patient Instructions Diet: Low Sodium Activity: As Tolerated Showering/Bathing: May Shower Other/Special Instructions: 1. You were in the hospital for management of community-acquired pneumonia involving the right lower lung. Your infection was complicated by sepsis syndrome and hypoxic respiratory failure. Your condition has been improving with antibiotic therapy and additional cares provided during hospital stay. You have completed adequate antibiotic therapy. The infection caused significant weakness and I recommend discharge to a shelter facility for subacute rehab. 2. During the hospital stay you had rapid atrial fibrillation. This required multiple medication changes but we have achieved good rate control. The medication changes are outlined in the medication reconciliation form. 3. Referral to physical and occupational therapy for strengthening after acute weakness related to your community-acquired pneumonia. 4. Code status - FULL CODE. 5. You have a west catheter in place because of acute urinary retention related to the acute illness. I recommend that we leave this in place until November 19. On that day the West catheter can be removed for a trial of voiding. We will have you on tamsulosin to help improve urinary flow for about 1 month. - Discharge Plan *PRESCRIPTION DRUG MONITORING PROGRAM REVIEWED*: Not Applicable *COPY OF PRESCRIPTION DRUG MONITORING REPORT IN PATIENT BARRY: Not Applicable Prescriptions/Med Rec: Amiodarone [Cordarone] 200 mg PO BID #60 tablet Apixaban [Eliquis] 5 mg PO BID #60 tablet Tamsulosin [Flomax] 0.4 mg PO BEDTIME #30 cap.er Nicotine [Habitrol] 7 mg TRDERM DAILY #30 patch Aspirin [Halfprin] 81 mg PO DAILY #30 tab.ec Melatonin 5 mg PO BEDTIME #30 tablet Metoprolol Succinate [Toprol XL] 25 mg PO DAILY #30 tab.er Acetaminophen [Tylenol] 650 mg PO Q4H PRN #200 tablet PRN Reason: Pain (Mild 1-3)/fever Home Medications: Home Meds Furosemide 40 mg PO DAILY 10/28/20 [History] Levothyroxine 25 mg PO ACBREAKFAST 10/28/20 [History] Simvastatin 40 mg PO DAILY 10/28/20 [History] Acetaminophen [Tylenol] 650 mg PO Q4H PRN #200 tablet 11/09/20 [Rx] Amiodarone [Cordarone] 200 mg PO BID #60 tablet 11/09/20 [Rx] Apixaban [Eliquis] 5 mg PO BID #60 tablet 11/09/20 [Rx] Aspirin [Halfprin] 81 mg PO DAILY #30 tab.ec 11/09/20 [Rx] Melatonin 5 mg PO BEDTIME #30 tablet 11/09/20 [Rx] Metoprolol Succinate [Toprol XL] 25 mg PO DAILY #30 tab.er 11/09/20 [Rx] Nicotine [Habitrol] 7 mg TRDERM DAILY #30 patch 11/09/20 [Rx] Tamsulosin [Flomax] 0.4 mg PO BEDTIME #30 cap.er 11/09/20 [Rx] Oxygen Therapy Mode: Room Air Patient Handouts: Community-Acquired Pneumonia, Adult, [id number] Referrals: Daphnie Hinds MD [Ordering Only Provider] - (as needed after the hospital stay ) - Discharge Summary/Plan Comment DC Time >30 min.: Yes (45-new group home discharge) - Patient Data Vitals - Most Recent: Last Vital Signs Temp 36.6 C 11/09/20 07:00 Pulse 58 L 11/09/20 10:04 Resp 17 11/09/20 07:00 BP 119/39 L 11/09/20 10:04 Pulse Ox 93 L 11/09/20 07:00 Weight - Most Recent: 67.404 kg I&O - Last 24 hours: Intake & Output 11/08/20 11/09/20 11/09/20 22:59 06:59 14:59 Intake Total 1000 500 296 Output Total 1050 350 Balance -50 150 296 Lab Results - Last 24 hrs: Laboratory Results - last 24 hr 11/09/20 Range/Units 04:33 WBC 14.5 H (4.5-11.0) K/uL RBC 3.07 L (4.30-5.90) M/uL Hgb 9.5 L (12.0-15.0) g/dL Hct 32.3 L (40.0-54.0) % MCV 105 H (80-98) fL MCH 31 (27-31) pg MCHC 29 L (32-36) % Plt Count 213 (150-400) K/uL Med Orders - Current: Current Medications Acetaminophen (Tylenol) 650 mg PO Q4H PRN PRN Reason: Pain (Mild 1-3)/fever Last Admin: 11/09/20 02:18 Dose: 650 mg Documented by: Albuterol (Proventil Neb Soln) 2.5 mg NEB Q2H PRN PRN Reason: Shortness Of Breath/wheezing Last Admin: 11/06/20 20:20 Dose: 2.5 mg Documented by: Amiodarone HCl (Cordarone) 200 mg PO BID [facility] Last Admin: 11/09/20 10:02 Dose: 200 mg Documented by: Aspirin (Halfprin) 81 mg PO DAILY [facility] Last Admin: 11/09/20 09:59 Dose: 81 mg Documented by: Divalproex Sodium (Depakote Sprinkle) 125 mg PO BIDMEALS [facility] Last Admin: 11/09/20 09:59 Dose: 125 mg Documented by: Furosemide (Lasix) 40 mg PO DAILY [facility] Last Admin: 11/09/20 09:59 Dose: 40 mg Documented by: Haloperidol Lactate (Haldol) 2.5 mg IVPUSH Q2H PRN PRN Reason: Agitation Last Admin: 11/07/20 10:19 Dose: 2.5 mg Documented by: Lactobacillus Rhamnosus (Culturelle) 1 cap PO BID [facility] Last Admin: 11/09/20 10:00 Dose: 1 cap Documented by: Levothyroxine Sodium (Levothyroxine) 25 mcg PO ACBREAKFAST [facility] Last Admin: 11/09/20 10:01 Dose: 25 mcg Documented by: Melatonin (Melatonin) 9 mg PO BEDTIME [facility] Last Admin: 11/08/20 20:45 Dose: 9 mg Documented by: Metoprolol Succinate (Toprol Xl) 25 mg PO DAILY [facility] Last Admin: 11/09/20 10:04 Dose: 25 mg Documented by: Nicotine (Habitrol) 7 mg TRDERM DAILY [facility] Last Admin: 11/09/20 10:00 Dose: 7 mg Documented by: Ondansetron HCl (Zofran Odt) 4 mg PO Q6H PRN PRN Reason: Nausea able to take PO Oxycodone HCl (Oxycodone) 5 mg PO Q4H PRN PRN Reason: Pain (moderate 4-6) Last Admin: 11/04/20 20:19 Dose: 5 mg Documented by: Polyethylene Glycol (Miralax) 17 gm PO DAILY PRN PRN Reason: Constipation Last Admin: 11/05/20 20:35 Dose: 17 gm Documented by: Simvastatin (Zocor) 40 mg PO BEDTIME [facility] Last Admin: 11/08/20 20:45 Dose: 40 mg Documented by: Sodium Biphosphate/Sodium Phosphate (Fleet Enema) 133 ml RECTAL ONETIME PRN PRN Reason: Constipation Sodium Chloride (Saline Flush) 10 ml FLUSH ASDIRECTED PRN PRN Reason: Keep Vein Open Last Admin: 10/28/20 23:06 Dose: 10 ml Documented by: Discontinued Medications Albuterol/Ipratropium (Duoneb 3.0-0.5 Mg/3 Ml) 3 ml NEB ONETIME ONE Stop: 10/28/20 19:09 Last Admin: 10/28/20 19:25 Dose: 3 ml Documented by: Albuterol/Ipratropium (Duoneb 3.0-0.5 Mg/3 Ml) 3 ml NEB ONETIME ONE Stop: 10/28/20 22:30 Last Admin: 10/28/20 22:32 Dose: 3 ml Documented by: Albuterol/Ipratropium (Duoneb 3.0-0.5 Mg/3 Ml) 3 ml NEB Q2H PRN PRN Reason: Shortness Of Breath/wheezing Last Admin: 11/02/20 10:04 Dose: 3 ml Documented by: Albuterol/Ipratropium (Duoneb 3.0-0.5 Mg/3 Ml) 3 ml NEB QIDRT [facility] Last Admin: 11/06/20 06:59 Dose: 3 ml Documented by: Amiodarone HCl (Cordarone) 150 mg IVPUSH ONETIME ONE Stop: 11/03/20 10:01 Last Admin: 11/03/20 10:11 Dose: 150 mg Documented by: Apixaban (Eliquis) 5 mg PO BID [facility] Last Admin: 11/08/20 08:59 Dose: 5 mg Documented by: Aspirin (Aspirin) 81 mg PO DAILY [facility] Last Admin: 10/29/20 08:43 Dose: 81 mg Documented by: Aspirin (Ecotrin) 325 mg PO DAILY [facility] Last Admin: 11/05/20 08:15 Dose: 325 mg Documented by: Aspirin (Aspirin) 243 mg PO ONETIME ONE Stop: 10/29/20 11:01 Last Admin: 10/29/20 10:41 Dose: 243 mg Documented by: Bisacodyl (Dulcolax) 10 mg RECTAL ONETIME ONE Stop: 10/31/20 12:01 Last Admin: 10/31/20 12:20 Dose: 10 mg Documented by: Digoxin (Lanoxin) 250 mcg IVPUSH ONETIME ONE Stop: 10/30/20 16:11 Last Admin: 10/30/20 16:27 Dose: 250 mcg Documented by: Digoxin (Lanoxin) 125 mcg PO ONETIME ONE Stop: 11/05/20 09:16 Last Admin: 11/05/20 09:43 Dose: 125 mcg Documented by: Digoxin (Lanoxin) 125 mcg PO ONETIME ONE Stop: 11/06/20 08:01 Last Admin: 11/06/20 09:00 Dose: 125 mcg Documented by: Digoxin (Lanoxin) 250 mcg PO DAILY@1300 [facility] Last Admin: 11/08/20 12:36 Dose: 250 mcg Documented by: Diltiazem HCl (Cardizem) 30 mg PO Q6H [facility] Stop: 11/02/20 08:00 Last Admin: 11/02/20 03:52 Dose: 30 mg Documented by: Diltiazem HCl (Cardizem Cd) 120 mg PO DAILY [facility] Last Admin: 11/03/20 08:27 Dose: 120 mg Documented by: Divalproex Sodium (Divalproex Sodium) 250 mg PO BIDMEALS [facility] Last Admin: 11/05/20 17:20 Dose: 250 mg Documented by: Doxycycline Hyclate (Vibramycin) 100 mg PO Q12H [facility] Stop: 11/04/20 23:59 Last Admin: 11/04/20 20:19 Dose: 100 mg Documented by: Enoxaparin Sodium (Lovenox) 40 mg SUBCUT Q24H [facility] Last Admin: 11/01/20 16:40 Dose: 40 mg Documented by: Furosemide (Lasix) 20 mg IVPUSH ONETIME ONE Stop: 10/29/20 02:40 Last Admin: 10/29/20 02:51 Dose: 20 mg Documented by: Furosemide (Lasix) 40 mg PO DAILY [facility] Last Admin: 10/30/20 08:02 Dose: 40 mg Documented by: Furosemide (Lasix) 40 mg IVPUSH NOW ONE Stop: 10/30/20 16:11 Last Admin: 10/30/20 16:32 Dose: 40 mg Documented by: Furosemide (Lasix) 40 mg IVPUSH NOW ONE Stop: 11/01/20 08:26 Last Admin: 11/01/20 10:19 Dose: 40 mg Documented by: Furosemide (Lasix) 40 mg IVPUSH NOW ONE Stop: 11/02/20 13:01 Last Admin: 11/02/20 13:15 Dose: 40 mg Documented by: Furosemide (Lasix) 20 mg IVPUSH NOW ONE Stop: 11/04/20 14:01 Last Admin: 11/04/20 14:14 Dose: Not Given Documented by: Haloperidol Lactate (Haldol) 1 mg IVPUSH Q2H PRN PRN Reason: Agitation Last Admin: 11/03/20 03:21 Dose: 1 mg Documented by: Haloperidol Lactate (Haldol) 2 mg IVPUSH ONETIME ONE Stop: 11/02/20 05:02 Last Admin: 11/02/20 04:50 Dose: 2 mg Documented by: Haloperidol Lactate (Haldol) 2 mg IVPUSH Q2H PRN PRN Reason: Agitation Last Admin: 11/04/20 20:29 Dose: 2 mg Documented by: Ceftriaxone Sodium 1 gm/ (Sodium Chloride) 50 mls @ 100 mls/hr IV ONETIME ONE Stop: 10/28/20 19:58 Last Admin: 10/28/20 20:24 Dose: 100 mls/hr Documented by: Sodium Chloride (Normal Saline) 1,000 mls @ 1,000 mls/hr IV BOLUS ONE; Protocol Stop: 10/28/20 20:58 Last Admin: 10/28/20 20:18 Dose: 1,000 mls/hr Documented by: Vancomycin HCl 1 gm/ Sodium (Chloride) 250 mls @ 167 mls/hr IV STAT ONE Stop: 10/28/20 21:28 Last Admin: 10/28/20 20:52 Dose: 167 mls/hr Documented by: Ceftriaxone Sodium 1 gm/ (Sodium Chloride) 50 mls @ 100 mls/hr IV Q24H [facility] Last Admin: 11/01/20 20:01 Dose: 100 mls/hr Documented by: Doxycycline Hyclate 100 mg/ (Sodium Chloride) 100 mls @ 100 mls/hr IV Q12H [facility] Last Admin: 11/02/20 10:05 Dose: 100 mls/hr Documented by: Amiodarone HCl 450 mg/ (Dextrose/Water) 250 mls @ 33.333 mls/hr IV ASDIRECTED [facility]; Protocol Last Admin: 11/03/20 17:34 Dose: 1 mg/min, 33.333 mls/hr Documented by: Sodium Chloride (Normal Saline) 500 mls @ 999 mls/hr IV .BOLUS ONE Stop: 11/04/20 14:15 Last Admin: 11/04/20 13:50 Dose: 999 mls/hr Documented by: Lisinopril (Prinivil) 2.5 mg PO DAILY [facility] Last Admin: 11/04/20 09:33 Dose: 2.5 mg Documented by: Lorazepam (Ativan) Confirm Administered Dose 2 mg .ROUTE .STK-MED ONE Stop: 11/07/20 00:40 Last Admin: 11/07/20 01:45 Dose: Not Given Documented by: Lorazepam (Ativan) 1 mg IVPUSH Q1H PRN PRN Reason: Agitation Last Admin: 11/07/20 02:43 Dose: 1 mg Documented by: Melatonin (Melatonin) 9 mg PO BEDTIME PRN PRN Reason: Insomnia Last Admin: 11/04/20 20:19 Dose: 9 mg Documented by: Methylprednisolone Sodium Succinate (Solu-Medrol) 125 mg IVPUSH ONETIME ONE Stop: 10/28/20 22:56 Last Admin: 10/28/20 23:06 Dose: 125 mg Documented by: Methylprednisolone Sodium Succinate (Solu-Medrol) 40 mg IVPUSH Q6H [facility] Last Admin: 10/31/20 03:39 Dose: 40 mg Documented by: Metoprolol Tartrate (Lopressor) 25 mg PO ONETIME ONE Stop: 10/29/20 02:40 Last Admin: 10/29/20 02:50 Dose: 25 mg Documented by: Metoprolol Tartrate (Lopressor) 25 mg PO BID [facility] Last Admin: 10/29/20 10:42 Dose: 25 mg Documented by: Metoprolol Tartrate (Lopressor) 12.5 mg PO BID [facility] Last Admin: 10/30/20 08:03 Dose: 12.5 mg Documented by: Metoprolol Tartrate (Lopressor) 25 mg PO BID [facility] Last Admin: 11/03/20 08:22 Dose: 25 mg Documented by: Metoprolol Tartrate (Lopressor) 12.5 mg PO Q12H [facility] Last Admin: 11/04/20 09:30 Dose: 12.5 mg Documented by: Metoprolol Tartrate (Lopressor) 12.5 mg PO BID [facility] Last Admin: 11/05/20 20:10 Dose: 12.5 mg Documented by: Morphine Sulfate (Morphine) 2 mg IVPUSH Q2H PRN PRN Reason: Pain (severe 7-10) Last Admin: 11/02/20 03:43 Dose: 2 mg Documented by: Potassium Chloride (Klor-Con M20) 40 meq PO ONETIME ONE Stop: 10/28/20 19:56 Last Admin: 10/28/20 20:17 Dose: 40 meq Documented by: Potassium Chloride (Klor-Con M20) 40 meq PO ONETIME ONE Stop: 10/30/20 08:31 Last Admin: 10/30/20 09:25 Dose: 40 meq Documented by: Potassium Chloride (Klor-Con M20) 40 meq PO ONETIME ONE Stop: 10/30/20 13:01 Last Admin: 10/30/20 14:28 Dose: 40 meq Documented by: Prednisone (Prednisone) 40 mg PO DAILY [facility] Last Admin: 11/03/20 08:24 Dose: 40 mg Documented by: Prednisone (Prednisone) 40 mg PO DAILY [facility] Last Admin: 11/02/20 09:08 Dose: 40 mg Documented by: Simvastatin (Zocor) 20 mg PO ONETIME ONE Stop: 10/29/20 00:53 Last Admin: 10/29/20 02:24 Dose: Not Given Documented by: Simvastatin (Zocor) 20 mg PO ONETIME ONE Stop: 10/29/20 09:01 Last Admin: 10/29/20 08:43 Dose: 20 mg Documented by: Simvastatin (Zocor) 20 mg PO BEDTIME ONE Stop: 10/29/20 21:01 Last Admin: 10/29/20 20:08 Dose: 20 mg Documented by:
== END 2020-11-09 15:00 | DRG 871 ==
LOC: JP.ED 18:44 → JP.ICU 23:37 → JP.MS 11-07 17:41
PROVIDERS: ADMIT Family Medicine; ATTEND Internal Medicine
PROC: 5A09457 Assistance with Respiratory Ventilation, 24-96 Consecutive Hours, Continuous Positive Airway Pressure (ICD-10-PCS; principal; 2020-10-28)
DX: A41.9 Sepsis, unspecified organism (principal); J18.9 Pneumonia, unspecified organism; J96.01 Acute respiratory failure with hypoxia; I50.23 Acute on chronic systolic (congestive) heart failure; I48.91 Unspecified atrial fibrillation; R09.02 Hypoxemia; R65.20 Severe sepsis without septic shock; E87.6 Hypokalemia; I50.9 Heart failure, unspecified; R33.8 Other retention of urine; R41.0 Disorientation, unspecified; Z79.01 Long term (current) use of anticoagulants; R33.9 Retention of urine, unspecified; Z79.82 Long term (current) use of aspirin; Z79.890 Hormone replacement therapy; Z79.899 Other long term (current) drug therapy; H91.90 Unspecified hearing loss, unspecified ear; H54.7 Unspecified visual loss; E78.00 Pure hypercholesterolemia, unspecified; E78.5 Hyperlipidemia, unspecified; I25.10 Atherosclerotic heart disease of native coronary artery without angina pectoris; Z85.828 Personal history of other malignant neoplasm of skin; Z98.49 Cataract extraction status, unspecified eye; Z87.891 Personal history of nicotine dependence; I25.2 Old myocardial infarction; M79.81 Nontraumatic hematoma of soft tissue; I11.0 Hypertensive heart disease with heart failure; E03.9 Hypothyroidism, unspecified; Z20.822 Contact with and (suspected) exposure to COVID-19; J44.0 Chronic obstructive pulmonary disease with (acute) lower respiratory infection
CPT/HCPCS: 0241U; 36415; 51702; 51798; 71045; 80048; 80053; 81001; 83605; 83880; 84145; 84484; 85025; 85027; 85610; 86140; 87040; 93005; 93010; 93306; 94640; 96365; 96367; 96375; 97110; 97162; 97165; 97530; 97535; 99285; 99231; 99232; 99233; 99239; A9270-GY; J0282; J0696; J1160; J1630; J1650; J1940; J2060; J2270; J2920; J2930; J3370; J3490; J7030; J7050; J7060; J7512; J7620-GY

== ENCOUNTER 2022-05-05 06:16 | Emergency (ER) | payer OTHER, MEDICARE ==
[2022-05-05] MEDS ORDERED: Sodium Chloride 0.9% 1,000 ML IV SCH (06:30)
[2022-05-05] MEDS ORDERED: Amiodarone 150 MG/3 ML SDV IVPUSH ONE (06:34)
[2022-05-05] MEDS ORDERED: Norepinephrine Bit/D5W Premix 250 ML ONE (06:56)
[2022-05-05 06:59] LABS: ESTIMATED GFR 36 mL/min (>60)
[2022-05-05] MEDS ORDERED: Norepinephrine Bit/D5W Premix 4 MG in Premix Bag 1 BAG IV SCH (07:00)
[2022-05-05] MEDS ORDERED: EPINEPHrine 4 MG in Dextrose 5% in Water 250 ML IV SCH ×2 (07:15)
[2022-05-05] MEDS ORDERED: Calcium Gluconate 10% 1 GM/10 ML SDV IVPUSH ONE (07:15)
[2022-05-05] MEDS ORDERED: fentaNYL 50 MCG/ML SDV IVPUSH ONE (07:19)
[2022-05-05] MEDS ORDERED: fentaNYL 50 MCG/ML SDV ONE (07:21)
[2022-05-05] MEDS ORDERED: Furosemide 40 MG/4 ML VIAL IVPUSH ONE (07:53)
== END 2022-05-05 08:13 ==
LOC: JP.ED 06:16
DX: R57.0 Cardiogenic shock (principal); I44.7 Left bundle-branch block, unspecified; I11.0 Hypertensive heart disease with heart failure; I50.43 Acute on chronic combined systolic (congestive) and diastolic (congestive) heart failure; J96.01 Acute respiratory failure with hypoxia; I25.2 Old myocardial infarction; E03.9 Hypothyroidism, unspecified; I48.91 Unspecified atrial fibrillation; I25.10 Atherosclerotic heart disease of native coronary artery without angina pectoris; J44.9 Chronic obstructive pulmonary disease, unspecified; Z79.899 Other long term (current) drug therapy; Z79.01 Long term (current) use of anticoagulants; Z79.82 Long term (current) use of aspirin; Z20.822 Contact with and (suspected) exposure to COVID-19
CPT/HCPCS: 36415; 36600; 71045; 80053; 82803; 83880; 84443; 84484; 85025; 85610; 85730; 87635; 93005; 96365; 96375; 99291; J0171; J0282; J0610; J1940; J3010; J7030; J7060; U0002

== ENCOUNTER 2022-10-08 14:15 | Inpatient (IN) | payer OTHER ==
[2022-10-08 15:27] LABS: ESTIMATED GFR 45 mL/min (>60)
[2022-10-08] MEDS ORDERED: Furosemide 40 MG/4 ML VIAL IVPUSH ONE (15:32)
[2022-10-08 15:40] LABS: CORONAVIRUS COVID-19 NAA NEGATIVE (NEGATIVE)
[2022-10-08] MEDS ORDERED: cefTRIAXone 1 GM in Sodium Chloride 0.9% 50 ML IV ONE (15:42)
[2022-10-08] MEDS ORDERED: Acetaminophen 325 MG Tab PO PRN (16:55)
[2022-10-08] MEDS ORDERED: Albuterol 0.083% 2.5 MG/3 ML Neb Soln NEB PRN (16:55)
[2022-10-08] MEDS ORDERED: Benzonatate 100 MG Cap PO PRN (16:55)
[2022-10-08] MEDS ORDERED: Ondansetron 4 MG/2 ML SDV IV PRN (16:55)
[2022-10-08] MEDS ORDERED: guaiFENesin/Dextromethorphan 100-10 MG/5 ML Soln 10 ML Cup PO PRN (16:55)
[2022-10-08] MEDS ORDERED: Ondansetron 4 MG Tab.DIS PO PRN (16:55)
[2022-10-08] MEDS ORDERED: Potassium Chloride 20 MEQ Tab.ER PO ONE (18:00)
[2022-10-08] MEDS ORDERED: Azithromycin 500 MG in Sodium Chloride 0.9% 250 ML IV SCH (18:00)
[2022-10-08] MEDS: Lactobacillus Rhamnosus GG (Probiotic) Cap PO SCH (20:44)
[2022-10-08] MEDS: Apixaban 2.5 MG Tab PO SCH (20:44)
[2022-10-08] MEDS: Melatonin 3 MG Tab PO SCH (20:44)
[2022-10-08] MEDS: atorvaSTATin 20 MG Tab PO SCH (20:45)
[2022-10-09] MEDS ORDERED: Lidocaine 2% Jelly 10 ML Urojet MUCMEM ONE (04:27)
[2022-10-09] MEDS ORDERED: Lidocaine 2% Jelly 10 ML Urojet ONE (04:33)
[2022-10-09] MEDS ORDERED: Morphine 10 MG/0.5 ML Oral Syringe PO PRN (04:36)
[2022-10-09] MEDS: Levothyroxine 50 MCG Tab PO SCH (07:20)
[2022-10-09] MEDS ORDERED: Furosemide 20 MG/2 ML VIAL IVPUSH ONE (08:00)
[2022-10-09] MEDS ORDERED: Potassium Chloride 20 MEQ Tab.ER PO ONE (09:00)
[2022-10-09] MEDS: Apixaban 2.5 MG Tab PO SCH ×2 (09:03→20:12)
[2022-10-09] MEDS: Spironolactone 25 MG Tab PO SCH (09:04)
[2022-10-09] MEDS: Cyanocobalamin (Vitamin B12) 1,000 MCG Tab PO SCH (09:04)
[2022-10-09] MEDS: Metoprolol Succinate 25 MG Tab.ER PO SCH (09:04)
[2022-10-09] MEDS: Tamsulosin 0.4 MG Cap.ER PO SCH (09:04)
[2022-10-09] MEDS: Lactobacillus Rhamnosus GG (Probiotic) Cap PO SCH ×2 (09:04→20:11)
[2022-10-09] MEDS: Lisinopril 2.5 MG Tab PO SCH (09:08)
[2022-10-09] MEDS: Clopidogrel 75 MG Tab PO SCH (09:08)
[2022-10-09] MEDS: Digoxin 125 MCG Tab PO SCH (13:11)
[2022-10-09] MEDS: Bumetanide 2.5 MG/10 ML MDV IVPUSH ONE ×2 (16:13→17:48)
[2022-10-09] MEDS: cefTRIAXone 1 GM in Sodium Chloride 0.9% 50 ML IV SCH ×2 (16:15→17:47)
[2022-10-09] MEDS ORDERED: Bumetanide 1 MG Tab PO ONE (17:42)
[2022-10-09] MEDS: Azithromycin 250 MG Tab PO SCH ×2 (17:44→17:55)
[2022-10-09] MEDS: atorvaSTATin 20 MG Tab PO SCH (20:12)
[2022-10-09] MEDS: Melatonin 3 MG Tab PO SCH (20:12)
[2022-10-09] MEDS: Cefdinir 300 MG Cap PO SCH (20:30)
[2022-10-10] MEDS ORDERED: Bumetanide 2.5 MG/10 ML MDV IVPUSH SCH (06:00)
[2022-10-10] MEDS: Bumetanide 1 MG Tab PO SCH ×2 (08:19→14:21)
[2022-10-10] MEDS: Levothyroxine 50 MCG Tab PO SCH (08:20)
[2022-10-10] MEDS: Metoprolol Succinate 25 MG Tab.ER PO SCH (08:26)
[2022-10-10] MEDS: Apixaban 2.5 MG Tab PO SCH ×2 (08:31→20:43)
[2022-10-10] MEDS: Cyanocobalamin (Vitamin B12) 1,000 MCG Tab PO SCH (08:31)
[2022-10-10] MEDS: Lisinopril 2.5 MG Tab PO SCH (08:32)
[2022-10-10] MEDS: Tamsulosin 0.4 MG Cap.ER PO SCH (08:32)
[2022-10-10] MEDS: Cefdinir 300 MG Cap PO SCH ×2 (08:33→20:44)
[2022-10-10] MEDS: Clopidogrel 75 MG Tab PO SCH (08:34)
[2022-10-10] MEDS: Spironolactone 25 MG Tab PO SCH (09:14)
[2022-10-10] MEDS: Lactobacillus Rhamnosus GG (Probiotic) Cap PO SCH ×2 (09:14→20:42)
[2022-10-10] MEDS: Digoxin 125 MCG Tab PO SCH (14:20)
[2022-10-10] MEDS: Azithromycin 250 MG Tab PO SCH (16:54)
[2022-10-10] MEDS: Magnesium Hydroxide 400 MG/5 ML Susp 30 ML Cup PO PRN (17:07)
[2022-10-10] MEDS: Melatonin 3 MG Tab PO SCH (20:43)
[2022-10-10] MEDS: atorvaSTATin 20 MG Tab PO SCH (20:43)
[2022-10-11] MEDS ORDERED: Pantoprazole 40 MG Vial IVPUSH ONE (02:41)
[2022-10-11] MEDS: Levothyroxine 50 MCG Tab PO SCH (08:01)
[2022-10-11] MEDS: Spironolactone 25 MG Tab PO SCH (08:06)
[2022-10-11] MEDS: Bumetanide 1 MG Tab PO SCH (08:06)
[2022-10-11] MEDS: Tamsulosin 0.4 MG Cap.ER PO SCH (08:07)
[2022-10-11] MEDS: Lactobacillus Rhamnosus GG (Probiotic) Cap PO SCH ×2 (08:08→20:19)
[2022-10-11] MEDS: Cefdinir 300 MG Cap PO SCH ×2 (08:09→20:20)
[2022-10-11] MEDS: Lisinopril 2.5 MG Tab PO SCH (08:10)
[2022-10-11] MEDS: Metoprolol Succinate 25 MG Tab.ER PO SCH (08:10)
[2022-10-11] MEDS: Cyanocobalamin (Vitamin B12) 1,000 MCG Tab PO SCH (08:12)
[2022-10-11] MEDS: Doxycycline 100 MG Cap PO SCH ×2 (11:28→20:19)
[2022-10-11] MEDS: Digoxin 125 MCG Tab PO SCH (13:52)
[2022-10-11] MEDS: Magnesium Hydroxide 400 MG/5 ML Susp 30 ML Cup PO PRN (14:34)
[2022-10-11] MEDS: Pantoprazole 40 MG Tab.CR PO SCH (16:57)
[2022-10-11] MEDS: Melatonin 3 MG Tab PO SCH (20:19)
[2022-10-11] MEDS: atorvaSTATin 20 MG Tab PO SCH (20:19)
[2022-10-12] MEDS: Pantoprazole 40 MG Tab.CR PO SCH ×2 (08:05→15:52)
[2022-10-12] MEDS: Levothyroxine 50 MCG Tab PO SCH (08:12)
[2022-10-12] MEDS: Lactobacillus Rhamnosus GG (Probiotic) Cap PO SCH ×2 (08:27→20:50)
[2022-10-12] MEDS: Bumetanide 1 MG Tab PO SCH (08:29)
[2022-10-12] MEDS: Spironolactone 25 MG Tab PO SCH (08:32)
[2022-10-12] MEDS: Tamsulosin 0.4 MG Cap.ER PO SCH (08:33)
[2022-10-12] MEDS: Cyanocobalamin (Vitamin B12) 1,000 MCG Tab PO SCH (08:34)
[2022-10-12] MEDS: Metoprolol Succinate 25 MG Tab.ER PO SCH (08:34)
[2022-10-12] MEDS: Lisinopril 2.5 MG Tab PO SCH (08:37)
[2022-10-12] MEDS: Clopidogrel 75 MG Tab PO SCH (08:37)
[2022-10-12] MEDS: Cefdinir 300 MG Cap PO SCH ×2 (08:39→20:51)
[2022-10-12] MEDS: Doxycycline 100 MG Cap PO SCH ×2 (10:10→20:51)
[2022-10-12] MEDS: Digoxin 125 MCG Tab PO SCH (13:40)
[2022-10-12] MEDS: atorvaSTATin 20 MG Tab PO SCH (20:50)
[2022-10-12] MEDS: Melatonin 3 MG Tab PO SCH (20:51)
[2022-10-13] MEDS: Levothyroxine 50 MCG Tab PO SCH (07:38)
[2022-10-13] MEDS: Pantoprazole 40 MG Tab.CR PO SCH ×2 (07:38→15:33)
[2022-10-13] MEDS: Cefdinir 300 MG Cap PO SCH ×2 (08:19→20:45)
[2022-10-13] MEDS: Lactobacillus Rhamnosus GG (Probiotic) Cap PO SCH ×2 (08:19→20:45)
[2022-10-13] MEDS: Bumetanide 1 MG Tab PO SCH (08:19)
[2022-10-13] MEDS: Spironolactone 25 MG Tab PO SCH (08:19)
[2022-10-13] MEDS: Tamsulosin 0.4 MG Cap.ER PO SCH (08:19)
[2022-10-13] MEDS: Metoprolol Succinate 25 MG Tab.ER PO SCH (08:20)
[2022-10-13] MEDS: Lisinopril 2.5 MG Tab PO SCH (08:20)
[2022-10-13] MEDS: Cyanocobalamin (Vitamin B12) 1,000 MCG Tab PO SCH (08:21)
[2022-10-13] MEDS: Doxycycline 100 MG Cap PO SCH ×2 (08:21→20:45)
[2022-10-13] MEDS: Digoxin 125 MCG Tab PO SCH (14:00)
[2022-10-13] MEDS: Melatonin 3 MG Tab PO SCH (20:45)
[2022-10-13] MEDS: atorvaSTATin 20 MG Tab PO SCH (20:45)
[2022-10-14] MEDS: Levothyroxine 50 MCG Tab PO SCH (08:03)
[2022-10-14] MEDS: Doxycycline 100 MG Cap PO SCH ×2 (08:03→20:03)
[2022-10-14] MEDS: Cyanocobalamin (Vitamin B12) 1,000 MCG Tab PO SCH (08:03)
[2022-10-14] MEDS: Spironolactone 25 MG Tab PO SCH (08:03)
[2022-10-14] MEDS: Pantoprazole 40 MG Tab.CR PO SCH ×2 (08:03→15:59)
[2022-10-14] MEDS: Lactobacillus Rhamnosus GG (Probiotic) Cap PO SCH ×2 (08:03→20:03)
[2022-10-14] MEDS: Tamsulosin 0.4 MG Cap.ER PO SCH (08:03)
[2022-10-14] MEDS: Bumetanide 1 MG Tab PO SCH (08:03)
[2022-10-14] MEDS: Metoprolol Succinate 25 MG Tab.ER PO SCH (08:04)
[2022-10-14] MEDS: Lisinopril 2.5 MG Tab PO SCH (08:04)
[2022-10-14] MEDS: Cefdinir 300 MG Cap PO SCH ×2 (08:04→20:03)
[2022-10-14] MEDS: Clopidogrel 75 MG Tab PO SCH (09:41)
[2022-10-14] MEDS: Digoxin 125 MCG Tab PO SCH (13:33)
[2022-10-14] MEDS: atorvaSTATin 20 MG Tab PO SCH (20:02)
[2022-10-14] MEDS: Melatonin 3 MG Tab PO SCH (20:03)
[2022-10-15] MEDS: Spironolactone 25 MG Tab PO SCH (08:29)
[2022-10-15] MEDS: Bumetanide 1 MG Tab PO SCH (08:29)
[2022-10-15] MEDS: Levothyroxine 50 MCG Tab PO SCH (08:29)
[2022-10-15] MEDS: Pantoprazole 40 MG Tab.CR PO SCH ×2 (08:29→15:31)
[2022-10-15] MEDS: Metoprolol Succinate 25 MG Tab.ER PO SCH (08:30)
[2022-10-15] MEDS: Doxycycline 100 MG Cap PO SCH ×2 (08:30→20:54)
[2022-10-15] MEDS: Lisinopril 2.5 MG Tab PO SCH (08:30)
[2022-10-15] MEDS: Lactobacillus Rhamnosus GG (Probiotic) Cap PO SCH ×2 (08:30→20:54)
[2022-10-15] MEDS: Cefdinir 300 MG Cap PO SCH (08:31)
[2022-10-15] MEDS: Cyanocobalamin (Vitamin B12) 1,000 MCG Tab PO SCH (08:31)
[2022-10-15] MEDS: Tamsulosin 0.4 MG Cap.ER PO SCH (08:31)
[2022-10-15] MEDS: Digoxin 125 MCG Tab PO SCH (13:53)
[2022-10-15] MEDS: atorvaSTATin 20 MG Tab PO SCH (20:54)
[2022-10-15] MEDS: Melatonin 3 MG Tab PO SCH (20:54)
[2022-10-16] MEDS: Spironolactone 25 MG Tab PO SCH (08:28)
[2022-10-16] MEDS: Pantoprazole 40 MG Tab.CR PO SCH ×2 (08:28→17:43)
[2022-10-16] MEDS: Bumetanide 1 MG Tab PO SCH (08:28)
[2022-10-16] MEDS: Levothyroxine 50 MCG Tab PO SCH (08:28)
[2022-10-16] MEDS: Lactobacillus Rhamnosus GG (Probiotic) Cap PO SCH ×2 (08:28→21:13)
[2022-10-16] MEDS: Cyanocobalamin (Vitamin B12) 1,000 MCG Tab PO SCH (08:28)
[2022-10-16] MEDS: Lisinopril 2.5 MG Tab PO SCH (08:29)
[2022-10-16] MEDS: Tamsulosin 0.4 MG Cap.ER PO SCH (08:29)
[2022-10-16] MEDS: Metoprolol Succinate 25 MG Tab.ER PO SCH (08:29)
[2022-10-16] MEDS: Doxycycline 100 MG Cap PO SCH ×2 (08:30→21:13)
[2022-10-16] MEDS: Digoxin 125 MCG Tab PO SCH (13:56)
[2022-10-16] MEDS: Melatonin 3 MG Tab PO SCH (21:13)
[2022-10-16] MEDS: atorvaSTATin 20 MG Tab PO SCH (21:13)
[2022-10-17] MEDS: Levothyroxine 50 MCG Tab PO SCH (07:40)
[2022-10-17] MEDS: Pantoprazole 40 MG Tab.CR PO SCH (07:40)
[2022-10-17] MEDS: Lactobacillus Rhamnosus GG (Probiotic) Cap PO SCH (08:44)
[2022-10-17] MEDS: Cyanocobalamin (Vitamin B12) 1,000 MCG Tab PO SCH (08:44)
[2022-10-17] MEDS: Tamsulosin 0.4 MG Cap.ER PO SCH (08:44)
[2022-10-17] MEDS: Doxycycline 100 MG Cap PO SCH (08:44)
[2022-10-17] MEDS: Spironolactone 25 MG Tab PO SCH (08:44)
[2022-10-17] MEDS: Bumetanide 1 MG Tab PO SCH (08:44)
[2022-10-17] MEDS: Metoprolol Succinate 25 MG Tab.ER PO SCH (09:26)
[2022-10-17] MEDS: Lisinopril 2.5 MG Tab PO SCH (09:27)
[2022-10-17] MEDS: Digoxin 125 MCG Tab PO SCH (12:03)
== END 2022-10-17 12:30 | disposition home health service (06) | DRG 193 ==
LOC: JP.ED 14:15 → JP.MS 16:30
PROVIDERS: ADMIT Internal Medicine; ATTEND Hospitalist
DX: J18.9 Pneumonia, unspecified organism (principal); I50.43 Acute on chronic combined systolic (congestive) and diastolic (congestive) heart failure; J96.01 Acute respiratory failure with hypoxia; I48.20 Chronic atrial fibrillation, unspecified; I13.0 Hypertensive heart and chronic kidney disease with heart failure and stage 1 through stage 4 chronic kidney disease, or unspecified chronic kidney disease; Z20.822 Contact with and (suspected) exposure to COVID-19; N18.31 Chronic kidney disease, stage 3a; H91.90 Unspecified hearing loss, unspecified ear; Z66 Do not resuscitate; I48.91 Unspecified atrial fibrillation; H54.7 Unspecified visual loss; E03.9 Hypothyroidism, unspecified; I25.10 Atherosclerotic heart disease of native coronary artery without angina pectoris; E78.00 Pure hypercholesterolemia, unspecified; Z79.02 Long term (current) use of antithrombotics/antiplatelets; I25.2 Old myocardial infarction; Z85.828 Personal history of other malignant neoplasm of skin; Z98.49 Cataract extraction status, unspecified eye; Z87.891 Personal history of nicotine dependence; Z79.01 Long term (current) use of anticoagulants; Z79.899 Other long term (current) drug therapy
CPT/HCPCS: 0241U; 36415; 51702; 71045; 71045-26; 80048; 80053; 82803; 83605; 83735; 84145; 85018; 85025; 85027; 86140; 86850; 86900; 86901; 86920; 86922; 93005; 93306; 94640; 96365; 96375; 97110-GO; 97110-GP; 97161-GP; 97165-GO; 97530-GP; 97535-GO; 99285-25; A9270-GY; C9113; J0456; J0696; J1940; J3490; J7050

== ENCOUNTER 2023-02-02 10:58 | Observation (INO) | payer OTHER, MEDICARE ==
[2023-02-02] MEDS ORDERED: Sodium Chloride 0.9% 10 ML Syringe FLUSH PRN ×2 (11:08→16:37)
[2023-02-02] MEDS ORDERED: Diphtheria,Pertussis(Acell),Tetanus Vaccine 0.5 ML Syringe IM ONE (11:34)
[2023-02-02 12:01] LABS: ESTIMATED GFR 34 mL/min (>60)
[2023-02-02] MEDS ORDERED: Sodium Chloride 0.9% 1,000 ML IV SCH (12:30)
[2023-02-02 15:56] LABS: CORONAVIRUS COVID-19 NAA NEGATIVE (NEGATIVE)
[2023-02-02] MEDS ORDERED: Sodium Polystyrene Sulfonate 15 GM/60 ML Susp 60 ML Bot PO ONE (16:00)
[2023-02-02] MEDS ORDERED: Ondansetron 4 MG/2 ML SDV IV PRN (16:37)
[2023-02-02] MEDS ORDERED: 50% Dextrose in Water 50 ML Syringe IV PRN (16:37)
[2023-02-02] MEDS ORDERED: Glucose Gel 15 GM in 37.5 GM Tube PO PRN (16:37)
[2023-02-02] MEDS ORDERED: Acetaminophen 325 MG Tab PO PRN (16:37)
[2023-02-02] MEDS: Sodium Chloride 0.9% 1,000 ML IV SCH ×2 (16:50→22:01)
[2023-02-02] MEDS: Insulin Lispro 100 Unit/ML 3 ML KwikPen SUBCUT SCH ×2 (17:36→21:37)
[2023-02-02] MEDS ORDERED: Sodium Chloride 0.9% 500 ML IV ONE (18:40)
[2023-02-02] MEDS ORDERED: Magnesium Sulfate/Water 2 GM in Premix Bag 1 BAG IV ONE (18:42)
[2023-02-02] MEDS: APIXABAN 2.5 MG PO SCH (20:27)
[2023-02-02] MEDS ORDERED: atorvaSTATin 20 MG Tab PO SCH (21:00)
[2023-02-02] MEDS ORDERED: Melatonin 3 MG Tab PO SCH (21:00)
[2023-02-03] MEDS: Sodium Chloride 0.9% 1,000 ML IV SCH (06:03)
[2023-02-03] MEDS: Insulin Lispro 100 Unit/ML 3 ML KwikPen SUBCUT SCH ×3 (07:50→17:11)
[2023-02-03] MEDS ORDERED: Aspirin 81 MG Tab.EC PO SCH (09:00)
[2023-02-03] MEDS ORDERED: EMPAGLIFLOZIN 10 MG PO SCH (09:00)
[2023-02-03] MEDS ORDERED: Levothyroxine 50 MCG **PTOM PO SCH (09:00)
[2023-02-03] MEDS ORDERED: Tamsulosin 0.4 MG **PTOM PO SCH (09:00)
[2023-02-03] MEDS ORDERED: Metoprolol Succinate 25 MG **PTOM PO SCH (09:00)
[2023-02-03] MEDS: APIXABAN 2.5 MG PO SCH (09:58)
[2023-02-03] MEDS ORDERED: DIGOXIN 125 MCG PO SCH (13:00)
[2023-02-03] MEDS ORDERED: ROSUVASTATIN 20 MG PO SCH (21:00)
== END 2023-02-03 17:53 | disposition home or self-care (01) ==
LOC: JP.ED 10:58 → JP.MS 15:35
PROVIDERS: ADMIT Hospitalist; ATTEND Hospitalist
DX: E86.0 Dehydration (principal); E87.5 Hyperkalemia; E87.1 Hypo-osmolality and hyponatremia; N17.9 Acute kidney failure, unspecified; S09.90XA Unspecified injury of head, initial encounter; R74.8 Abnormal levels of other serum enzymes; J44.1 Chronic obstructive pulmonary disease with (acute) exacerbation; I13.0 Hypertensive heart and chronic kidney disease with heart failure and stage 1 through stage 4 chronic kidney disease, or unspecified chronic kidney disease; N18.31 Chronic kidney disease, stage 3a; I50.9 Heart failure, unspecified; E78.00 Pure hypercholesterolemia, unspecified; I25.2 Old myocardial infarction; E03.9 Hypothyroidism, unspecified; F17.209 Nicotine dependence, unspecified, with unspecified nicotine-induced disorders; Z79.890 Hormone replacement therapy; Z79.899 Other long term (current) drug therapy; Z79.82 Long term (current) use of aspirin; Z20.822 Contact with and (suspected) exposure to COVID-19; Z79.01 Long term (current) use of anticoagulants; Z23 Encounter for immunization; W19.XXXA Unspecified fall, initial encounter
CPT/HCPCS: 0241U; 36415; 70450; 80048; 80053; 80162; 82947; 83735; 85025; 85027; 85610; 85730; 90471; 90715; 96360; 96361; 97161; 99222; 99238; 99284; A9270; G0378; J3475; J3490; J7030; J7040

== ENCOUNTER 2023-07-03 21:17 | Emergency (ER) | payer OTHER, MEDICARE ==
[2023-07-03 21:28] LABS: BASOPHILS ABSOLUTE AUTO 0.05 K/uL (0.00-0.10); BASOPHILS PERCENT AUTO 0.7 % (0.1-1.3); EOSINOPHILS ABSOLUTE AUTO 0.39 K/uL (0.00-0.40); EOSINOPHILS PERCENT AUTO 5.4 % (0.0-5.4); HEMATOCRIT 36.1 % (38.4-49.7); HEMOGLOBIN 11.8 g/dL (12.9-16.9); IMMATURE GRAN PERCENT AUTO 0.3 % (0.0-0.7); LYMPHOCYTES ABSOLUTE AUTO 2.09 K/uL (0.8-3.3); LYMPHOCYTES PERCENT AUTO 28.9 % (11.4-47.7); MEAN CORPUSCULAR HEMOGLOBIN 32.9 pg (31.6-35.5); MEAN CORPUSCULAR HGB CONC 32.7 g/dL (31.6-35.5); MEAN CORPUSCULAR VOLUME 100.6 fL (81.4-99.0); MONOCYTES PERCENT AUTO 12.5 % (3.3-12.6); NEUTROPHILS ABSOLUTE AUTO 3.77 K/uL (1.0-7.6); NEUTROPHILS PERCENT AUTO 52.2 % (40.0-78.1); PLATELET COUNT,PLT 162 K/uL (130-375); RED BLOOD CELL COUNT 3.59 M/uL (4.14-5.76); WHITE BLOOD CELL COUNT,WBC 7.2 K/uL (3.2-11.0)
[2023-07-03 21:29] LABS: IMMATURE GRAN ABSOLUTE AUTO 0.02 K/uL (0.00-0.23)
[2023-07-03 21:44] LABS: BLOOD UREA NITROGEN,BUN 30 mg/dL (7-18); CARBON DIOXIDE,CO2 27 mmol/L (21-32); CHLORIDE,CL 99 mmol/L (100-108); CREATININE 1.3 mg/dL (0.8-1.3); ESTIMATED GFR 53 mL/min (>60); GLUCOSE RANDOM 99 mg/dL (74-106); SODIUM,NA 135 mmol/L (140-148)
[2023-07-03] MEDS ORDERED: Sodium Chloride 0.9% 50 ML IV SCH (22:00)
[2023-07-03] MEDS ORDERED: Iopamidol 612 MG/ML 100 ML Bottle IV SCH (22:00)
[2023-07-03] MEDS ORDERED: fentaNYL 100 MCG/2 ML SDV IVPUSH ONE (22:29)
== END 2023-07-04 01:30 | disposition home or self-care (01) ==
LOC: JP.ED 21:17 → EEVIPCON 21:17 → JP.ED 07-04 01:30
DX: S02.2XXA Fracture of nasal bones, initial encounter for closed fracture (principal); I25.10 Atherosclerotic heart disease of native coronary artery without angina pectoris; I11.0 Hypertensive heart disease with heart failure; I50.9 Heart failure, unspecified; E78.00 Pure hypercholesterolemia, unspecified; E03.9 Hypothyroidism, unspecified; I25.2 Old myocardial infarction; Z79.899 Other long term (current) drug therapy; Z79.82 Long term (current) use of aspirin; Y92.009 Unspecified place in unspecified non-institutional (private) residence as the place of occurrence of the external cause
CPT/HCPCS: 36415; 70450; 70486; 71260; 72125; 72128; 73110; 74177; 76377; 80048; 82550; 83605; 85025; 93005; 96374; 99285; J3010; J3490; Q9967

== ENCOUNTER 2023-11-23 10:58 | Inpatient (IN) | payer OTHER, MEDICARE ==
[2023-11-23] MEDS ORDERED: Albuterol/Ipratropium 3.0-0.5 MG/3 ML Neb Soln NEB ONE (11:24)
[2023-11-23 11:37] LABS: HEMATOCRIT 38.1 % (38.4-49.7); IMMATURE GRAN PERCENT AUTO 0.1 % (0.0-0.7); LYMPHOCYTES ABSOLUTE AUTO 0.58 K/uL (0.8-3.3); LYMPHOCYTES PERCENT AUTO 8.5 % (11.4-47.7); MEAN CORPUSCULAR HEMOGLOBIN 31.8 pg (31.6-35.5); MEAN CORPUSCULAR HGB CONC 31.5 g/dL (31.6-35.5); MEAN CORPUSCULAR VOLUME 101.1 fL (81.4-99.0); MONOCYTES ABSOLUTE AUTO 0.57 K/uL (0.20-0.90); MONOCYTES PERCENT AUTO 8.4 % (3.3-12.6); NEUTROPHILS ABSOLUTE AUTO 5.65 K/uL (1.0-7.6); PLATELET COUNT,PLT 151 K/uL (130-375); RED BLOOD CELL COUNT 3.77 M/uL (4.14-5.76); WHITE BLOOD CELL COUNT,WBC 6.8 K/uL (3.2-11.0)
[2023-11-23 11:38] LABS: IMMATURE GRAN ABSOLUTE AUTO 0.01 K/uL (0.00-0.23)
[2023-11-23 11:40] LABS: BASE EXCESS VENOUS 1.6 mm/L; CARBOXYHEMOGLOBIN 2.8 % (0.0-1.6); METHEMOGLOBIN 0.7 %; O2 SATURATION VENOUS 48.6; OXYHEMOGLOBIN 46.9 %; PCO2 VENOUS 54.9 mm/Hg; PH,VENOUS 7.328 (7.350-7.450); TOTAL HEMOGLOBIN 12.4 g/dL (13.5-18.0)
[2023-11-23 11:46] LABS: PO2 VENOUS 29.5 mm/Hg
[2023-11-23 12:10] LABS: BLOOD UREA NITROGEN,BUN 26 mg/dL (7-18); C-REACTIVE PROTEIN 0.62 mg/dL (<0.50); CALCIUM 8.3 mg/dL (8.5-10.1); CARBON DIOXIDE,CO2 27 mmol/L (21-32); CHLORIDE,CL 100 mmol/L (100-108); CREATININE 1.4 mg/dL (0.8-1.3); ESTIMATED GFR 48 mL/min (>60); GLUCOSE RANDOM 136 mg/dL (74-106); POTASSIUM,K 3.4 mmol/L (3.6-5.2); SODIUM,NA 138 mmol/L (140-148)
[2023-11-23 12:34] LABS: ANION GAP 14.4 mmol/L (5.0-14.0); PRO B-TYPE NATRIUR PEPT,BNPPRO 62684 pg/mL (5-450)
[2023-11-23 13:52] LABS: BODY FLUID TYPE THORACENTESIS FLUID
[2023-11-23 15:17] LABS: WBC BODY FLUID 170 /ul
[2023-11-23 15:18] LABS: MONONUCLEAR, BODY FLUID 93 %; POLYMORPHONUCLEAR, BODY FLUID 7 %; RBC,BODY FLUID 234 /ul
[2023-11-23 15:22] LABS: ALBUMIN,BODY FLUID 0.8
[2023-11-23 15:32] LABS: GLUCOSE,BODY FLUID 136 mg/dL; LACTATE DEHYDROGENASE,BODY FL 64 IU/L
[2023-11-23 15:33] LABS: CHOLESTEROL,BODY FLUID 14 mg/dL
[2023-11-23 15:35] LABS: CORONAVIRUS COVID-19 NAA NEGATIVE (NEGATIVE); INFLUENZA A NAA NEGATIVE (NEGATIVE); INFLUENZA B NAA NEGATIVE (NEGATIVE); RESPIRATORY SYNCYTIAL VIR NAA NEGATIVE (NEGATIVE)
[2023-11-23] MEDS ORDERED: hydrOXYzine HCl 25 MG Tab PO PRN (16:08)
[2023-11-23] MEDS ORDERED: Sennosides 8.6 MG Tab PO PRN (16:08)
[2023-11-23] MEDS ORDERED: oxyCODONE 5 MG Tab PO PRN (16:13)
[2023-11-23] MEDS ORDERED: Acetaminophen 325 MG Tab PO PRN (16:13)
[2023-11-23] MEDS ORDERED: Morphine 2 MG/ML SYRINGE IVPUSH PRN (16:13)
[2023-11-23] MEDS ORDERED: LORazepam 2 MG/ML SDV IVPUSH PRN (16:13)
[2023-11-23] MEDS ORDERED: Magnesium Hydroxide 400 MG/5 ML Susp 30 ML Cup PO PRN (16:13)
[2023-11-23] MEDS ORDERED: Ondansetron 4 MG Tab.DIS PO PRN (16:13)
[2023-11-23] MEDS ORDERED: Sennosides/Docusate Sodium 50-8.6 MG Tab PO PRN (16:13)
[2023-11-23] MEDS ORDERED: Ondansetron 4 MG/2 ML SDV IV PRN (16:13)
[2023-11-23] MEDS ORDERED: Sodium Chloride 0.9% 1,000 ML IV SCH (16:45)
[2023-11-23] MEDS: Rosuvastatin 10 MG Tab PO SCH (21:23)
[2023-11-23] MEDS: Melatonin 3 MG Tab PO SCH (21:24)
[2023-11-23] MEDS: Apixaban 2.5 MG Tab PO SCH (21:24)
[2023-11-24 05:55] LABS: BASOPHILS PERCENT AUTO 0.1 % (0.1-1.3); EOSINOPHILS ABSOLUTE AUTO 0.05 K/uL (0.00-0.40); EOSINOPHILS PERCENT AUTO 0.6 % (0.0-5.4); HEMATOCRIT 42.9 % (38.4-49.7); HEMOGLOBIN 13.3 g/dL (12.9-16.9); IMMATURE GRAN ABSOLUTE AUTO 0.03 K/uL (0.00-0.23); IMMATURE GRAN PERCENT AUTO 0.3 % (0.0-0.7); LYMPHOCYTES ABSOLUTE AUTO 0.67 K/uL (0.8-3.3); LYMPHOCYTES PERCENT AUTO 7.8 % (11.4-47.7); MEAN CORPUSCULAR HEMOGLOBIN 31.4 pg (31.6-35.5); MEAN CORPUSCULAR VOLUME 101.4 fL (81.4-99.0); MONOCYTES ABSOLUTE AUTO 0.87 K/uL (0.20-0.90); MONOCYTES PERCENT AUTO 10.1 % (3.3-12.6); NEUTROPHILS ABSOLUTE AUTO 6.98 K/uL (1.0-7.6); NEUTROPHILS PERCENT AUTO 81.1 % (40.0-78.1); PLATELET COUNT,PLT 159 K/uL (130-375); RED BLOOD CELL COUNT 4.23 M/uL (4.14-5.76); WHITE BLOOD CELL COUNT,WBC 8.6 K/uL (3.2-11.0)
[2023-11-24 06:08] LABS: BASOPHILS ABSOLUTE AUTO 0.01 K/uL (0.00-0.10)
[2023-11-24 06:35] LABS: A/G RATIO 0.7 (1.2-2.2); ALANINE AMINOTRANSFERASE,ALT 21 U/L (12-78); ALKALINE PHOSPHATASE 94 U/L (46-116); ANION GAP 11.3 mmol/L (5.0-14.0); ASPARTATE AMNIOTRANSFERASE,AST 19 U/L (15-37); BILIRUBIN TOTAL 1.1 mg/dL (0.2-1.0); BLOOD UREA NITROGEN,BUN 25 mg/dL (7-18); CALCIUM 8.2 mg/dL (8.5-10.1); CARBON DIOXIDE,CO2 35 mmol/L (21-32); CHLORIDE,CL 104 mmol/L (100-108); CREATININE 1.3 mg/dL (0.8-1.3); ESTIMATED GFR 53 mL/min (>60); GLUCOSE RANDOM 101 mg/dL (74-106); POTASSIUM,K 3.3 mmol/L (3.6-5.2); PROTEIN TOTAL,TP 7.3 g/dL (6.4-8.2); SODIUM,NA 147 mmol/L (140-148)
[2023-11-24 06:36] LABS: C-REACTIVE PROTEIN 0.92 mg/dL (<0.50); DIGOXIN 1.07 ng/mL (0.90-2.00); TSH ULTRASENSITIVE 2.673 uIU/mL (0.358-3.740)
[2023-11-24] MEDS: Levothyroxine 50 MCG Tab PO SCH (07:43)
[2023-11-24] MEDS: Pantoprazole 40 MG Tab.CR PO SCH (07:43)
[2023-11-24 08:31] LABS: HEMOGLOBIN A1C 5.8 % (4.5-6.2)
[2023-11-24] MEDS ORDERED: Pneumococcal 20-Valent Conjug 0.5 ML Syringe IM ONE (09:00)
[2023-11-24] MEDS: Tamsulosin 0.4 MG Cap.ER PO SCH (09:24)
[2023-11-24] MEDS: Apixaban 2.5 MG Tab PO SCH ×2 (09:24→21:22)
[2023-11-24] MEDS: Aspirin 81 MG Tab.EC PO SCH (09:24)
[2023-11-24] MEDS: Empagliflozin 10 MG Tab PO SCH (09:24)
[2023-11-24] MEDS: Metoprolol Succinate 25 MG Tab.ER PO SCH (09:25)
[2023-11-24] MEDS ORDERED: Potassium Chloride 20 MEQ in Premix Bag 1 BAG IV ONE (11:36)
[2023-11-24] MEDS: Potassium Chloride 10 MEQ in Premix Bag 1 BAG IV SCH ×2 (12:07→14:24)
[2023-11-24] MEDS ORDERED: Digoxin 125 MCG Tab PO SCH ×2 (13:00)
[2023-11-24] MEDS: Rosuvastatin 10 MG Tab PO SCH (21:21)
[2023-11-24] MEDS: Melatonin 3 MG Tab PO SCH (21:22)
[2023-11-25 05:55] LABS: BASOPHILS PERCENT AUTO 0.2 % (0.1-1.3); EOSINOPHILS ABSOLUTE AUTO 0.24 K/uL (0.00-0.40); EOSINOPHILS PERCENT AUTO 2.6 % (0.0-5.4); HEMOGLOBIN 11.7 g/dL (12.9-16.9); IMMATURE GRAN ABSOLUTE AUTO 0.03 K/uL (0.00-0.23); IMMATURE GRAN PERCENT AUTO 0.3 % (0.0-0.7); LYMPHOCYTES ABSOLUTE AUTO 1.21 K/uL (0.8-3.3); LYMPHOCYTES PERCENT AUTO 13.3 % (11.4-47.7); MEAN CORPUSCULAR HEMOGLOBIN 31.9 pg (31.6-35.5); MEAN CORPUSCULAR HGB CONC 30.8 g/dL (31.6-35.5); MEAN CORPUSCULAR VOLUME 103.5 fL (81.4-99.0); MONOCYTES ABSOLUTE AUTO 0.87 K/uL (0.20-0.90); MONOCYTES PERCENT AUTO 9.6 % (3.3-12.6); NEUTROPHILS ABSOLUTE AUTO 6.71 K/uL (1.0-7.6); PLATELET COUNT,PLT 138 K/uL (130-375); RED BLOOD CELL COUNT 3.67 M/uL (4.14-5.76); WHITE BLOOD CELL COUNT,WBC 9.1 K/uL (3.2-11.0)
[2023-11-25 06:08] LABS: BASOPHILS ABSOLUTE AUTO 0.02 K/uL (0.00-0.10)
[2023-11-25 06:22] LABS: A/G RATIO 0.6 (1.2-2.2); ALANINE AMINOTRANSFERASE,ALT 18 U/L (12-78); ALBUMIN 2.4 g/dL (3.4-5.0); ALKALINE PHOSPHATASE 79 U/L (46-116); ASPARTATE AMNIOTRANSFERASE,AST 17 U/L (15-37); BLOOD UREA NITROGEN,BUN 36 mg/dL (7-18); CALCIUM 7.9 mg/dL (8.5-10.1); CARBON DIOXIDE,CO2 37 mmol/L (21-32); CHLORIDE,CL 106 mmol/L (100-108); CREATININE 1.3 mg/dL (0.8-1.3); EST CRCL DRUG DOSING (CG) 31.22 mL/min; ESTIMATED GFR 53 mL/min (>60); GLUCOSE RANDOM 99 mg/dL (74-106); POTASSIUM,K 3.9 mmol/L (3.6-5.2); PRO B-TYPE NATRIUR PEPT,BNPPRO 25376 pg/mL (5-450); PROTEIN TOTAL,TP 6.2 g/dL (6.4-8.2); SODIUM,NA 146 mmol/L (140-148)
[2023-11-25 06:32] LABS: ANION GAP 6.9 mmol/L (5.0-14.0)
[2023-11-25] MEDS: Levothyroxine 50 MCG Tab PO SCH (08:30)
[2023-11-25] MEDS: Aspirin 81 MG Tab.EC PO SCH (08:30)
[2023-11-25] MEDS: Metoprolol Succinate 25 MG Tab.ER PO SCH (08:30)
[2023-11-25] MEDS: Pantoprazole 40 MG Tab.CR PO SCH (08:30)
[2023-11-25] MEDS: Apixaban 2.5 MG Tab PO SCH (08:30)
[2023-11-25] MEDS: Tamsulosin 0.4 MG Cap.ER PO SCH (08:31)
[2023-11-25] MEDS: Empagliflozin 10 MG Tab PO SCH (08:31)
[2023-11-25] MEDS ORDERED: Bumetanide 1 MG Tab PO SCH (09:00)
== END 2023-11-25 13:05 | disposition home health service (06) | DRG 291 ==
LOC: JP.ED 10:58 → JP.ICU 15:34
PROVIDERS: ADMIT Hospitalist; ATTEND Hospitalist
PROC: 0W993ZZ Drainage of Right Pleural Cavity, Percutaneous Approach (ICD-10-PCS; principal; 2023-11-23)
PROC: 4A033R1 Measurement of Arterial Saturation, Peripheral, Percutaneous Approach (ICD-10-PCS; 2023-11-23)
DX: I13.0 Hypertensive heart and chronic kidney disease with heart failure and stage 1 through stage 4 chronic kidney disease, or unspecified chronic kidney disease (principal); I11.0 Hypertensive heart disease with heart failure; I50.43 Acute on chronic combined systolic (congestive) and diastolic (congestive) heart failure; J96.01 Acute respiratory failure with hypoxia; J44.1 Chronic obstructive pulmonary disease with (acute) exacerbation; J90 Pleural effusion, not elsewhere classified; I48.91 Unspecified atrial fibrillation; I25.10 Atherosclerotic heart disease of native coronary artery without angina pectoris; E78.00 Pure hypercholesterolemia, unspecified; E03.9 Hypothyroidism, unspecified; H91.90 Unspecified hearing loss, unspecified ear; N40.0 Benign prostatic hyperplasia without lower urinary tract symptoms; N18.30 Chronic kidney disease, stage 3 unspecified; E87.6 Hypokalemia; Z11.52 Encounter for screening for COVID-19; Z79.899 Other long term (current) drug therapy; Z79.01 Long term (current) use of anticoagulants; Z79.82 Long term (current) use of aspirin; I25.2 Old myocardial infarction; Z87.81 Personal history of (healed) traumatic fracture; Z98.49 Cataract extraction status, unspecified eye; Z98.890 Other specified postprocedural states
CPT/HCPCS: 0241U; 32555; 36415; 51702; 71045; 71045-26; 80048; 80053; 80162; 82040; 82042; 82803; 82945; 82947; 83036; 83615; 83880; 84311; 84443; 85025; 86140; 87070; 87205; 88112; 88305; 89050; 90677; 94640; 97161-GP; 97165-GO; 97530-GP; 99223; 99232; 99239; 99285; 99285-25; A9270-GY; C8929; G0009; J3480; J3490; J7620

== ENCOUNTER 2024-05-09 10:57 | Emergency (ER) | payer OTHER, MEDICARE | END 2024-05-09 11:00 | disposition left against medical advice (07) | LOC: JP.ED 10:57 | DX: Z53.21 Procedure and treatment not carried out due to patient leaving prior to being seen by health care provider (principal) ==

== ENCOUNTER 2024-06-06 11:30 | Inpatient (IN) | payer OTHER, MEDICARE ==
[2024-06-06] MEDS ORDERED: Sodium Chloride 0.9% 10 ML Syringe FLUSH PRN ×2 (11:32→16:45)
[2024-06-06 11:53] LABS: EOSINOPHILS PERCENT AUTO 0.1 % (0.0-5.4); HEMATOCRIT 34.2 % (38.4-49.7); IMMATURE GRAN PERCENT AUTO 0.3 % (0.0-0.7); LYMPHOCYTES ABSOLUTE AUTO 0.54 K/uL (0.8-3.3); LYMPHOCYTES PERCENT AUTO 7.1 % (11.4-47.7); MEAN CORPUSCULAR HEMOGLOBIN 30.9 pg (31.6-35.5); MEAN CORPUSCULAR HGB CONC 32.2 g/dL (31.6-35.5); MEAN CORPUSCULAR VOLUME 96.1 fL (81.4-99.0); MONOCYTES ABSOLUTE AUTO 0.78 K/uL (0.20-0.90); MONOCYTES PERCENT AUTO 10.2 % (3.3-12.6); NEUTROPHILS PERCENT AUTO 82.3 % (40.0-78.1); PLATELET COUNT,PLT 199 K/uL (130-375); RED BLOOD CELL COUNT 3.56 M/uL (4.14-5.76); WHITE BLOOD CELL COUNT,WBC 7.7 K/uL (3.2-11.0)
[2024-06-06 11:57] LABS: EOSINOPHILS ABSOLUTE AUTO 0.01 K/uL (0.00-0.40); IMMATURE GRAN ABSOLUTE AUTO 0.02 K/uL (0.00-0.23)
[2024-06-06 12:27] LABS: A/G RATIO 0.5 (1.2-2.2); ALANINE AMINOTRANSFERASE,ALT 24 U/L (12-78); ALBUMIN 2.7 g/dL (3.4-5.0); ALKALINE PHOSPHATASE 123 U/L (46-116); ASPARTATE AMNIOTRANSFERASE,AST 34 U/L (15-37); BILIRUBIN TOTAL 1.6 mg/dL (0.2-1.0); BLOOD UREA NITROGEN,BUN 28 mg/dL (7-18); CALCIUM 8.2 mg/dL (8.5-10.1); CARBON DIOXIDE,CO2 27 mmol/L (21-32); CHLORIDE,CL 102 mmol/L (100-108); CREATININE 1.9 mg/dL (0.8-1.3); EST CRCL DRUG DOSING (CG) 20.63 mL/min; ESTIMATED GFR 33 mL/min (>60); GLUCOSE RANDOM 109 mg/dL (74-106); POTASSIUM,K 3.9 mmol/L (3.6-5.2); PROTEIN TOTAL,TP 7.9 g/dL (6.4-8.2); SODIUM,NA 139 mmol/L (140-148)
[2024-06-06 12:28] LABS: ANION GAP 13.9 mmol/L (5.0-14.0)
[2024-06-06] MEDS: Bumetanide 1 MG/4 ML MDV IVPUSH ONE (16:34)
[2024-06-06] MEDS ORDERED: 50% Dextrose in Water 50 ML Syringe IV PRN (16:45)
[2024-06-06] MEDS ORDERED: Ondansetron 4 MG/2 ML SDV IV PRN (16:45)
[2024-06-06] MEDS ORDERED: Sennosides 8.6 MG Tab PO PRN (16:45)
[2024-06-06] MEDS ORDERED: Glucose Gel 15 GM in 37.5 GM Tube PO PRN (16:45)
[2024-06-06] MEDS: Insulin Lispro 100 Unit/ML 3 ML KwikPen SUBCUT SCH (18:15)
[2024-06-06] MEDS: Melatonin 3 MG Tab PO SCH (21:45)
[2024-06-06] MEDS: Apixaban 2.5 MG Tab PO SCH (21:45)
[2024-06-06] MEDS: Rosuvastatin 10 MG Tab PO SCH (21:45)
[2024-06-07 05:25] LABS: HEMATOCRIT 31.2 % (38.4-49.7); HEMOGLOBIN 9.9 g/dL (12.9-16.9); MEAN CORPUSCULAR HEMOGLOBIN 30.6 pg (31.6-35.5); MEAN CORPUSCULAR HGB CONC 31.7 g/dL (31.6-35.5); MEAN CORPUSCULAR VOLUME 96.3 fL (81.4-99.0); RED BLOOD CELL COUNT 3.24 M/uL (4.14-5.76); WHITE BLOOD CELL COUNT,WBC 6.7 K/uL (3.2-11.0)
[2024-06-07 06:00] LABS: ANION GAP 9.2 mmol/L (5.0-14.0); CREATININE 1.9 mg/dL (0.8-1.3); EST CRCL DRUG DOSING (CG) 20.68 mL/min; MAGNESIUM 2.1 mg/dL (1.8-2.4); POTASSIUM,K 3.6 mmol/L (3.6-5.2)
[2024-06-07] MEDS: Levothyroxine 50 MCG Tab PO SCH (07:38)
[2024-06-07] MEDS: Bumetanide 1 MG/4 ML MDV IVPUSH ONE (08:57)
[2024-06-07] MEDS: Empagliflozin 10 MG Tab PO SCH (08:58)
[2024-06-07] MEDS: Amiodarone 200 MG Tab PO SCH (08:58)
[2024-06-07] MEDS: Tamsulosin 0.4 MG Cap.ER PO SCH (08:58)
[2024-06-07] MEDS: Potassium Chloride 20 MEQ Tab.ER PO SCH (08:58)
[2024-06-07] MEDS: Metoprolol Succinate 25 MG Tab.ER PO SCH (08:58)
[2024-06-07] MEDS: Aspirin 81 MG Tab.EC PO SCH (08:59)
[2024-06-07] MEDS: Polyethylene Glycol 3350 Powder 17 GM Packet PO PRN (09:12)
[2024-06-07] MEDS: Potassium Chloride 20 MEQ Tab.ER PO ONE ×2 (10:37→16:13)
[2024-06-07] MEDS: Albuterol 0.083% 2.5 MG/3 ML Neb Soln NEB PRN (14:47)
[2024-06-07] MEDS: Polyethylene Glycol 3350 Powder 17 GM Packet PO ONE (16:11)
[2024-06-07] MEDS: Sennosides/Docusate Sodium 50-8.6 MG Tab PO PRN (18:07)
[2024-06-07] MEDS: Bumetanide 2.5 MG/10 ML MDV IVPUSH SCH (19:25)
[2024-06-08 06:36] LABS: ANION GAP 9.5 mmol/L (5.0-14.0); CALCIUM 8.4 mg/dL (8.5-10.1); CREATININE 1.8 mg/dL (0.8-1.3); EST CRCL DRUG DOSING (CG) 21.96 mL/min; POTASSIUM,K 5.2 mmol/L (3.6-5.2)
[2024-06-08] MEDS: Levothyroxine 25 MCG Tab PO SCH (07:34)
[2024-06-08] MEDS ORDERED: Naloxone 0.4 MG/ML SDV IVPUSH PRN (15:38)
[2024-06-08] MEDS: Morphine 2 MG/ML SYRINGE IVPUSH ONE (15:57)
[2024-06-09 05:58] LABS: ANION GAP 9.7 mmol/L (5.0-14.0); CALCIUM 8.3 mg/dL (8.5-10.1); CREATININE 1.8 mg/dL (0.8-1.3); EST CRCL DRUG DOSING (CG) 21.1 mL/min; MAGNESIUM 2.3 mg/dL (1.8-2.4); POTASSIUM,K 4.2 mmol/L (3.6-5.2)
[2024-06-10 05:35] LABS: CALCIUM 8.5 mg/dL (8.5-10.1); CREATININE 1.8 mg/dL (0.8-1.3); EST CRCL DRUG DOSING (CG) 21.1 mL/min; POTASSIUM,K 4.3 mmol/L (3.6-5.2)
[2024-06-10 05:37] LABS: ANION GAP 10.3 mmol/L (5.0-14.0)
[2024-06-10] MEDS: Morphine 2 MG/ML SYRINGE IVPUSH ONE (11:48)
[2024-06-11 05:20] LABS: CALCIUM 8.6 mg/dL (8.5-10.1); CREATININE 1.9 mg/dL (0.8-1.3); EST CRCL DRUG DOSING (CG) 18.82 mL/min; POTASSIUM,K 4.1 mmol/L (3.6-5.2)
[2024-06-11 05:22] LABS: ANION GAP 12.1 mmol/L (5.0-14.0)
[2024-06-11] MEDS: Morphine 10 MG/0.5 ML Oral Syringe PO PRN (09:15)
[2024-06-12 05:26] LABS: CALCIUM 8.1 mg/dL (8.5-10.1); EST CRCL DRUG DOSING (CG) 17.69 mL/min; POTASSIUM,K 4.3 mmol/L (3.6-5.2)
[2024-06-12 05:30] LABS: ANION GAP 12.3 mmol/L (5.0-14.0)
[2024-06-12] MEDS: Polyethylene Glycol 3350 Powder 17 GM Packet PO ONE (12:08)
[2024-06-13] MEDS: Bumetanide 1 MG Tab PO SCH (08:05)
[2024-06-14] MEDS: Bumetanide 1 MG Tab PO SCH ×2 (07:16→13:59)
[2024-06-14] MEDS: Acetaminophen 325 MG Tab PO PRN (18:15)
[2024-06-14] MEDS: Ketorolac 15 MG/ML SDV IVPUSH ONE (20:30)
[2024-06-15 05:43] LABS: CREATININE 2.4 mg/dL (0.8-1.3); EST CRCL DRUG DOSING (CG) 15.04 mL/min
== END 2024-06-15 11:54 | disposition home health service (06) | DRG 291 ==
LOC: JP.ED 11:30 → JP.MS 15:43
PROVIDERS: ADMIT Hospitalist; ATTEND Internal Medicine
DX: I13.0 Hypertensive heart and chronic kidney disease with heart failure and stage 1 through stage 4 chronic kidney disease, or unspecified chronic kidney disease (principal); I50.23 Acute on chronic systolic (congestive) heart failure; J96.01 Acute respiratory failure with hypoxia; N17.9 Acute kidney failure, unspecified; I48.20 Chronic atrial fibrillation, unspecified; Z66 Do not resuscitate; I48.91 Unspecified atrial fibrillation; Z51.5 Encounter for palliative care; I25.2 Old myocardial infarction; N18.32 Chronic kidney disease, stage 3b; E11.22 Type 2 diabetes mellitus with diabetic chronic kidney disease; I25.10 Atherosclerotic heart disease of native coronary artery without angina pectoris; E78.00 Pure hypercholesterolemia, unspecified; J44.9 Chronic obstructive pulmonary disease, unspecified; E03.9 Hypothyroidism, unspecified; K59.00 Constipation, unspecified; Z79.01 Long term (current) use of anticoagulants; Z79.82 Long term (current) use of aspirin; Z98.49 Cataract extraction status, unspecified eye; Z99.81 Dependence on supplemental oxygen; Z79.899 Other long term (current) drug therapy; Z98.890 Other specified postprocedural states; Z87.891 Personal history of nicotine dependence
CPT/HCPCS: 36415; 71045; 71045-26; 71250; 71250-26; 74176; 74176-26; 80048; 80053; 82947; 83735; 83880; 84145; 84443; 84484; 85025; 85027; 85379; 93306; 94640; 97110-GO; 97110-GP; 97161-GP; 97165-GO; 97530-GP; 97535-GO; 99222; 99232; 99239; 99285; A9270-GY; J1885; J2270; J3490